=== PATIENT | male | born 1930 | race Caucasian/White ===

== ENCOUNTER 2019-02-16 15:38 | Inpatient (IN) | payer OTHER ==
[~2019-02-16] VITALS: Ht 175.3 cm; Wt 72.8 kg
[2019-02-16] MEDS ORDERED: MAGNESIUM HYDROXIDE 2,400 MG/30 ML ORAL.SUSP. PO PRN (17:00)
[2019-02-16] MEDS ORDERED: ACETAMINOPHEN 325 MG TABLET PO PRN (17:00)
[2019-02-16] MEDS ORDERED: MAG HYDROX/AL HYDROX/SIMETH 30 ML ORAL.SUSP PO PRN (17:00)
[2019-02-16] MEDS ORDERED: SENN1TAB15 PO (17:37)
[2019-02-16] MEDS ORDERED: TAMS0.4C97 PO (17:37)
[2019-02-16] MEDS ORDERED: CHOL500016 PO (17:37)
[2019-02-16] MEDS ORDERED: NAPR-695 PO (17:37)
[2019-02-16] MEDS ORDERED: NYST15OI TP (17:37)
[2019-02-16] MEDS ORDERED: CYAN10005 PO (17:37)
[2019-02-16] MEDS ORDERED: HYDR-2769 PO ×2 (17:37)
[2019-02-16] MEDS ORDERED: METH-37 PO (17:37)
[2019-02-16] MEDS ORDERED: FOLI1TAB16 PO (17:37)
[2019-02-16] MEDS ORDERED: ACET500T68 PO (17:37)
[2019-02-16] MEDS ORDERED: HYDROcodone/APAP 10/325 1 TAB TABLET PO PRN (17:45)
[2019-02-16] MEDS ORDERED: SENNOSIDES/DOCUSATE 8.6/50MG TABLET. PO PRN (17:45)
[2019-02-16] MEDS: NAPROXEN 375 MG TABLET PO SCH (20:32)
[2019-02-16] MEDS: METHOCARBAMOL 500 MG TABLET PO SCH (20:32)
[2019-02-16] MEDS: NYSTATIN 100,000 UNIT/GM TOPICAL OINTMENT 15GM TUBE. TP SCH (20:32)
[2019-02-16] MEDS: HYDROcodone/APAP 10/325 1 TAB TABLET PO PRN (21:27)
--- NOTE | 2019-02-16 23:07 | PDOC ---
Exam Note: Adam Note: Please also refer to the separate dictated note~for this date of service dictated separately. Discussed the patient with Nursing staff reviewed the chart.~Reviewed interim history and current functioning. Reviewed vital signs,~Labs/ Radiology~and current medications noted below. Continue current treatment with the changes noted in the dictated addendum note Assessment: Vital Signs: Vital Signs Date Time Temp Pulse Resp B/P (MAP) Pulse Ox O2 Delivery O2 Flow Rate FiO2 02/16/19 22:27 18 Room Air Current Medications: Meds: Current Medications Acetaminophen (Tylenol) 650 mg PRN Q6HRS PRN PO PAIN / TEMP; Start 02/16/19 at 17:00; Status Cancel Multi-Ingredient Ointment (Analgesic [place]) 1 iesha PRN QID PRN TP MUSCLE PAIN; Start 02/16/19 at 17:00 Al Hydroxide/Mg Hydroxide (Mylanta Plus Xs) 15 ml PRN AFTMEALHC PRN PO DYSPEPSIA; Start 02/16/19 at 17:00 Magnesium Hydroxide (Milk Of Magnesia) 2,400 mg PRN QHS PRN PO CONSTIPATION; Start 02/16/19 at 17:00 Cyanocobalamin (Vitamin B-12) 1,000 mcg DAILY PO ; Start 02/17/19 at 09:00 Acetaminophen/ Hydrocodone Bitart (Lortab 10/325) 1 tab PRN BID PRN PO PAIN L ast administered on 02/16/19at 21:27; Start 02/16/19 at 17:45 Acetaminophen/ Hydrocodone Bitart (Lortab 10/325) 1 tab DAILY PRN PO PAIN; Start 02/16/19 at 17:45; Status UNV Methocarbamol (Robaxin) 750 mg BID PO Last administered on 02/16/19at 20:32; Start 02/16/19 at 21:00 Nystatin (Mycostatin) 1 iesha TID TP Last administered on 02/16/19at 20:32; Start 02/16/19 at 21:00 Senna/Docusate Sodium (Senna Plus) 1 tab PRN BID PRN PO CONSTIPATION; Start 02/16/19 at 17:45 Tamsulosin HCl (Flomax) 0.4 mg DAILYWSUP PO ; Start 02/17/19 at 17:00 Acetaminophen (Tylenol) 500 mg PRN Q8HRS PRN PO PAIN / TEMP; Start 02/16/19 at 18:00 Vitamin D (Vitamin D3) 5,000 unit DAILY PO ; Start 02/17/19 at 09:00 Folic Acid (Folic Acid) 1 mg DAILY PO ; Start 02/17/19 at 09:00 Naproxen (Naprosyn) 375 mg BID PO Last administered on 02/16/19at 20:32; Start 02/16/19 at 21:00 Active Scripts Active Reported Flomax (Tamsulosin Hcl) 0.4 Mg Cap.er.24h 1 Cap PO DAILYWSUP Folic Acid 1 Mg Tablet 1 Tab PO DAILY Vitamin B-12 (Cyanocobalamin (Vitamin B-12)) 1,000 Mcg Tablet 1 Tab PO DAILY Senna-S Tablet (Sennosides/Docusate Sodium) 1 Each Tablet 1 Each PO BID PRN Acetaminophen 500 Mg Tablet 1 Tab PO PRN Q8HRS PRN Vitamin D3 (Cholecalciferol (Vitamin D3)) 5,000 Unit Tablet 1 Tab PO DAILY Nystatin 15 Gm Oint...g. 1 Iesha TP TID Naproxen 375 Mg Tablet 1 Tab PO BID Robaxin (Methocarbamol) 500 Mg Tablet 750 Mg PO BID Hydrocodone-Apap 10-325 (Hydrocodone Bit/Acetaminophen) 1 Each Tablet 1 Tab PO DAILY PRN Hydrocodone-Apap 10-325 (Hydrocodone Bit/Acetaminophen) 1 Each Tablet 1 Tab PO BID PRN I have reviewed the current psychotropics carefully including drug interactions. Risk benefit ratio favors no change other than as noted in my dictated progress note. 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
[2019-02-17 00:58] VITALS: BP 127/70
[2019-02-17 05:34] VITALS: BP 138/77
[2019-02-17 07:58] LABS: ALBUMIN 3.4 g/dL (3.4-5.0); ALBUMIN/GLOBULIN RATIO 1.3 (1.0-1.7); CALCIUM 8.8 mg/dL (8.5-10.1); CREATININE 0.8 mg/dL (0.7-1.3); GFR 91.4; MAGNESIUM 2.2 mg/dL (1.8-2.4); POTASSIUM 4.5 mmol/L (3.5-5.1); TOTAL BILIRUBIN 0.5 mg/dL (0.2-1.0); TOTAL PROTEIN 6.1 g/dL (6.4-8.2)
[2019-02-17] MEDS: METHOCARBAMOL 500 MG TABLET PO SCH ×2 (08:00→19:11)
[2019-02-17 08:01] LABS: BASO # 0.1 x10^3/uL (0.0-0.2); BASO % 5 % (0-3); EOS % 1 % (0-3); HEMATOCRIT 25.3 % (39.0-53.0); HEMOGLOBIN 8.9 g/dL (13.0-17.5); LYMPH # 0.9 x10^3/uL (1.0-4.8); LYMPH % 36 % (24-48); MEAN CORPUSCULAR HEMOGLOBIN 38 pg (25-35); MEAN CORPUSCULAR HGB CONC 35 g/dL (31-37); MEAN CORPUSCULAR VOLUME 110 fL (79-100); MONO # 0.2 x10^3/uL (0.0-1.1); MONO % 6 % (0-9); NEUT # 1.3 x10^3uL (1.8-7.7); NEUT % 53 % (31-73); PLATELET COUNT 99 x10^3/uL (140-400); RED BLOOD COUNT 2.31 x10^6/uL (4.30-5.70); RED CELL DISTRIBUTION WIDTH 14.5 % (11.5-14.5); WHITE BLOOD COUNT 2.5 x10^3/uL (4.0-11.0)
[2019-02-17] MEDS: NAPROXEN 375 MG TABLET PO SCH ×2 (08:01→19:11)
[2019-02-17] MEDS: CHOLECALCIFEROL (VITAMIN D3) 1,000 UNIT TABLET PO SCH (08:01)
[2019-02-17] MEDS: CYANOCOBALAMIN (VITAMIN B-12) 1,000 MCG TABLET. PO SCH (08:02)
[2019-02-17] MEDS: FOLIC ACID 1 MG TABLET PO SCH (08:04)
[2019-02-17] MEDS: NYSTATIN 100,000 UNIT/GM TOPICAL OINTMENT 15GM TUBE. TP SCH ×3 (08:04→19:11)
[2019-02-17 09:21] LABS: PLT ESTIMATE DECREASED (ADEQUATE)
[2019-02-17 09:22] LABS: POLYCHROMASIA PRESENT
--- NOTE | 2019-02-17 10:37 | EKG ---
[address] [address] Test Date: 2019-02-17 Test Time: 05:08:29 Pat Name: CARLOS MANUEL MEYERS Department: Room: [address] [place] [address] Gender: M Band Shover: : 1930 Requested By: YOLI ONOFRE Order Number: [id number] Reading MD: Aba Cano Measurements Intervals [place] Rate: 67 P: 52 [place]: 180 QRS: 7 QRSD: 80 T: 44 QT: 408 QTc: 434 Interpretive Statements SINUS RHYTHM ATRIAL PREMATURE COMPLEX(ES) Electronically Signed On 02-18-2019 10:08:42 CDT by Aba Cano
[2019-02-17] MEDS: HYDROcodone/APAP 10/325 1 TAB TABLET PO PRN (12:11)
[2019-02-17 13:03] LABS: THYROID STIM HORMONE (TSH) 6.096 uIU/mL (0.358-3.740)
--- NOTE | 2019-02-17 14:46 | RAD ---
EXAM: Head CT without contrast. HISTORY: Mental status change. TECHNIQUE: Computed tomographic images of the head were obtained without contrast. *One or more of the following individualized dose reduction techniques were utilized for this examination: 1. Automated exposure control. 2. Adjustment of the mA and/or kV according to patient size. 3. Use of iterative reconstruction technique. COMPARISON: None. FINDINGS: There is no acute or subacute extra-axial or intraparenchymal hemorrhage. There is no mass effect or midline shift. There is no hydrocephalus. There are areas of decreased attenuation within the cerebral white matter, nonspecific and likely related to chronic small vessel disease. There is cerebral volume loss. There is mild ethmoid sinus mucosal thickening. There is incidental left orbital band keratopathy. The mastoid air cells are clear. No calvarial lesion is seen. IMPRESSION: 1. No acute intracranial finding. Note is made that MRI is more sensitive for acute infarction. 2. Decreased attenuation within the cerebral white matter, likely due to chronic small vessel disease. 3. Age-appropriate cerebral volume loss. Electronically signed by: Sweetie Mayer MD (02/17/2019 2:43 PM) [place] [id number]
[2019-02-17 16:06] VITALS: BP 123/63
[2019-02-17] MEDS: TAMSULOSIN 0.4 MG CAP.ER.24H. PO SCH (17:08)
--- NOTE | 2019-02-17 19:15 | HP ---
ADMIT DATE: 02/16/2019 PSYCHIATRIC ADMISSION HISTORY/EVALUATION This late entry, date of service 02/16/2019 covers elements not covered in my initial note. I met with the patient evening of 02/16/2019. IDENTIFYING DATA: The patient is an 88-year-old male, referred to us from the [facility] where he was admitted from [facility] where he resides on his own. He had been increasingly confused, paranoid, aggressive towards his son, throwing things at the son, paranoid, depressed, having poor self-care, suicidal ideation, actively wanting to end his life. He was obsessive, ruminative, asking his son to take into the bank every other day. He failed outpatient psychiatric interventions, was medically stabilized at the [facility], then referred to us for inpatient psychiatric stabilization. CHIEF COMPLAINT: "Who told you, I was suicidal. Why are you asking me memory questions. I am nothing wrong with the memory. You can ask me questions, I do not have to answer." The patient is quite paranoid, suspicious, agitated as I met with him evening of 02/16/2019. He seated in his wheelchair, however, he is being admitted earlier in the day. HISTORY OF PRESENT ILLNESS: The patient has a history of dementia, Alzheimer's vascular type with delusions, behavioral disturbance. As noted above, he has been obsessive, anxious, psychotic, paranoid with sleep changes. No clear symptoms of bipolar disorder or homicidal ideation. No suicide attempt is noted. He is extremely guarded, discussing all of the above. PAST PSYCHIATRIC HISTORY: As above. MEDICAL HISTORY: Positive for BPH and history of CA prostate, history of B12 and folate deficiency and possible vitamin D deficiency. DRUG ALLERGIES: Negative. Takes medications whole. DIET: Regular. Accu-Cheks not applicable. Ambulates with walker, standby assist. CURRENT PSYCHOTROPICS: Lortab 10/325 b.i.d. p.r.n. daily for pain and he is on Flomax. FAMILY HISTORY: Noncontributory. SOCIAL HISTORY: No history of alcohol, drug abuse, physical, sexual or elder abuse. He is not known to be a perpetrator. REACTION TO HOSPITALIZATION: The patient reluctantly accepting of it. REVIEW OF SYSTEMS: Ambulation impaired, in wheelchair. No CV, , pulmonary, eye, ENT system symptoms on review. Reliability poor. MENTAL STATUS EXAMINATION: Oriented to himself. Insight, judgment, recent and remote memory, attention, concentration, fund of knowledge poor, consistent with his diagnosis mentioned in my initial note. SUBJECTIVE: I had been called on the patient a few days previously to admit him to our unit, but [facility] and then [facility] contacted us to transition him here. IMPRESSION: Major neurocognitive disorder, Alzheimer, vascular with delusion, depression, behavioral disturbance; anxiety disorder, unspecified; impulse control disorder, unspecified. Rest as above. PLAN: Admit to Geropsychiatry Unit at [facility]. I will see the patient daily individually from a psychiatric standpoint. Medical followup with Dr. Anderson. I will see the patient daily individually. We will have neuropsychological testing with Dr. Julien to assess his level of cognition and capacity to make decision, start him on Exelon patch 4.6 mg daily for 7 days, then 9.5 mg a day. Consider starting Zoloft 25 mg a day, increasing in 3 days to 50 mg a day. Start Risperdal liquid 0.25 mg p.o. at bedtime, mix in his food and fluids with the consent of his son. We will make further changes as clinically indicated. YOLI ONOFRE MD DR: NEO/janae JOB#: [id number] / [id number]
--- NOTE | 2019-02-17 22:37 | PDOC ---
Exam Note: Adam Note: Please also refer to the separate dictated note~for this date of service dictated separately.~Patient seen individually. Discussed the patient with Nursing staff reviewed the chart.~Reviewed interim history and current functioning. Reviewed vital signs,~Labs/ Radiology~and current medications noted below. Continue current treatment with the changes noted in the dictated addendum note Assessment: Vital Signs: Vital Signs Date Time Temp Pulse Resp B/P (MAP) Pulse Ox O2 Delivery O2 Flow Rate FiO2 02/17/19 16:06 98.3 61 16 123/63 (83) 96 02/17/19 00:58 Room Air I&O Intake and Output 02/17/19 07:00 Intake Total 480 ml Balance 480 ml Intake Oral 480 ml # Voids 1 Labs: Laboratory Tests Test 02/17/19 07:22 White Blood Count 2.5 x10^3/uL (4.0-11.0) L Red Blood Count 2.31 x10^6/uL (4.30-5.70) L Hemoglobin 8.9 g/dL (13.0-17.5) L Hematocrit 25.3 % (39.0-53.0) L Mean Corpuscular Volume 110 fL (79-100) H Mean Corpuscular Hemoglobin 38 pg (25-35) H Mean Corpuscular Hemoglobin Concent 35 g/dL (31-37) Red Cell Distribution Width 14.5 % (11.5-14.5) Platelet Count 99 x10^3/uL (140-400) L Neutrophils (%) (Auto) 53 % (31-73) Lymphocytes (%) (Auto) 36 % (24-48) Monocytes (%) (Auto) 6 % (0-9) Eosinophils (%) (Auto) 1 % (0-3) Basophils (%) (Auto) 5 % (0-3) H Neutrophils # (Auto) 1.3 x10^3uL (1.8-7.7) L Lymphocytes # (Auto) 0.9 x10^3/uL (1.0-4.8) L Monocytes # (Auto) 0.2 x10^3/uL (0.0-1.1) Eosinophils # (Auto) 0.0 x10^3/uL (0.0-0.7) Basophils # (Auto) 0.1 x10^3/uL (0.0-0.2) Platelet Estimate Decreased (ADEQUATE) Large Platelets Occ Polychromasia Present Macrocytosis Slight Sodium Level 139 mmol/L (136-145) Potassium Level 4.5 mmol/L (3.5-5.1) Chloride Level 102 mmol/L (98-107) Carbon Dioxide Level 30 mmol/L (21-32) Anion Gap 7 (6-14) Blood Urea Nitrogen 20 mg/dL (8-26) Creatinine 0.8 mg/dL (0.7-1.3) Estimated GFR (Cockcroft-Gault) 91.4 BUN/Creatinine Ratio 25 (6-20) H Glucose Level 91 mg/dL (70-99) Calcium Level 8.8 mg/dL (8.5-10.1) Magnesium Level 2.2 mg/dL (1.8-2.4) Iron Level 81 ug/dL (65-175) Total Iron Binding Capacity 204 ug/dL (250-450) L Iron Saturation 40 % (15-34) H Total Bilirubin 0.5 mg/dL (0.2-1.0) Aspartate Amino Transferase (AST) 10 U/L (15-37) L Alanine Aminotransferase (ALT) 14 U/L (16-63) L Alkaline Phosphatase 98 U/L (46-116) Total Protein 6.1 g/dL (6.4-8.2) L Albumin 3.4 g/dL (3.4-5.0) Albumin/Globulin Ratio 1.3 (1.0-1.7) Triglycerides Level 49 mg/dL (0-150) Cholesterol Level 124 mg/dL (0-200) LDL Cholesterol, Calculated 56 mg/dL (0-100) VLDL Cholesterol, Calculated 9 mg/dL (0-40) Non-HDL Cholesterol Calculated 65 mg/dL (0-129) HDL Cholesterol 59 mg/dL (40-60) Cholesterol/HDL Ratio 2.0 Thyroid Stimulating Hormone (TSH) 6.096 uIU/mL (0.358-3.740) Total Triiodothyronine (TT3) 90 ng/dL (71-180) Current Medications: Meds: Current Medications Acetaminophen (Tylenol) 650 mg PRN Q6HRS PRN PO PAIN / TEMP; Start 02/16/19 at 17:00; Status Cancel Multi-Ingredient Ointment (Analgesic [place]) 1 iesha PRN QID PRN TP MUSCLE PAIN; Start 02/16/19 at 17:00 Al Hydroxide/Mg Hydroxide (Mylanta Plus Xs) 15 ml PRN AFTMEALHC PRN PO DYSPEPSIA; Start 02/16/19 at 17:00 Magnesium Hydroxide (Milk Of Magnesia) 2,400 mg PRN QHS PRN PO CONSTIPATION; Start 02/16/19 at 17:00 Cyanocobalamin (Vitamin B-12) 1,000 mcg DAILY PO Last administered on 02/17/19at 08:02; Start 02/17/19 at 09:00 Acetaminophen/ Hydrocodone Bitart (Lortab 10/325) 1 tab PRN BID PRN PO PAIN Last administered on 02/17/19at 12:11; Start 02/16/19 at 17:45 Acetaminophen/ Hydrocodone Bitart (Lortab 10/325) 1 tab DAILY PRN PO PAIN; Start 02/16/19 at 17:45; Status UNV Methocarbamol (Robaxin) 750 mg BID PO Last administered on 02/17/19at 19:11; Start 02/16/19 at 21:00 Nystatin (Mycostatin) 1 iesha TID TP Last administered on 02/17/19at 19:11; Start 02/16/19 at 21:00 Senna/Docusate Sodium (Senna Plus) 1 tab PRN BID PRN PO CONSTIPATION; Start 02/16/19 at 17:45 Tamsulosin HCl (Flomax) 0.4 mg DAILYWSUP PO Last administered on 02/17/19at 17:08; Start 02/17/19 at 17:00 Acetaminophen (Tylenol) 500 mg PRN Q8HRS PRN PO PAIN / TEMP; Start 02/16/19 at 18:00 Vitamin D (Vitamin D3) 5,000 unit DAILY PO Last administered on 02/17/19 08:01; Start 02/17/19 at 09:00 Folic Acid (Folic Acid) 1 mg DAILY PO Last administered on 02/17/19at 08:04; Start 02/17/19 at 09:00 Naproxen (Naprosyn) 375 mg BID PO Last administered on 02/17/19at 19:11; Start 02/16/19 at 21:00 Risperidone (RisperDAL) 0.25 mg DAILY SL ; Start 02/18/19 at 09:00 Sertraline HCl (Zoloft) 25 mg DAILY PO ; Start 02/18/19 at 09:00; Stop 02/20/19 at 09:01 Sertraline HCl (Zoloft) 50 mg DAILY PO ; Start 02/21/19 at 09:00 Rivastigmine (Exelon) 1 patch DAILY TD ; Start 02/18/19 at 09:00; Stop 02/24/19 at 09:01 Rivastigmine (Exelon) 1 patch DAILY TD ; Start 02/25/19 at 09:00 Active Scripts Active Reported Flomax (Tamsulosin Hcl) 0.4 Mg Cap.er.24h 1 Cap PO DAILYWSUP Folic Acid 1 Mg Tablet 1 Tab PO DAILY Vitamin B-12 (Cyanocobalamin (Vitamin B-12)) 1,000 Mcg Tablet 1 Tab PO DAILY Senna-S Tablet (Sennosides/Docusate Sodium) 1 Each Tablet 1 Each PO BID PRN Acetaminophen 500 Mg Tablet 1 Tab PO PRN Q8HRS PRN Vitamin D3 (Cholecalciferol (Vitamin D3)) 5,000 Unit Tablet 1 Tab PO DAILY Nystatin 15 Gm Oint...g. 1 Iesha TP TID Naproxen 375 Mg Tablet 1 Tab PO BID Robaxin (Methocarbamol) 500 Mg Tablet 750 Mg PO BID Hydrocodone-Apap 10-325 (Hydrocodone Bit/Acetaminophen) 1 Each Tablet 1 Tab PO DAILY PRN Hydrocodone-Apap 10-325 (Hydrocodone Bit/Acetaminophen) 1 Each Tablet 1 Tab PO BID PRN I have reviewed the current psychotropics carefully including drug interactions. Risk benefit ratio favors no change other than as noted in my dictated progress note. 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
[2019-02-17 23:10] LABS: HEMOGLOBIN A1C 5.4 % (4.8-5.6)
[2019-02-18] MEDS: HYDROcodone/APAP 10/325 1 TAB TABLET PO PRN ×2 (01:09→07:25)
--- NOTE | 2019-02-18 01:19 | CONS ---
DATE OF CONSULTATION: 02/17/2019 REASON FOR CONSULTATION: Medical management. HISTORY OF PRESENT ILLNESS: The patient is an 88-year-old male patient, who was apparently evaluated at [facility] and was [facility] on account of being aggressive towards his son, throwing things at him, paranoid, depressed, poor self-care, has suicidal ideation, making son take him to the bank every other day on a background of dementia, Alzheimer's disease with delusions, impulse control disorder and major depressive disorder. 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 PAST SURGICAL HISTORY: Unremarkable. FAMILY HISTORY: Noncontributory. SOCIAL HISTORY: He lives with his son. He apparently does not smoke, drink alcohol or use any recreational drugs. He is able to ambulate with a walker. He has also wheelchair. ALLERGIES: He has no known drug allergies. MEDICATIONS: He is currently on following medications: He is on Flomax 0.4 mg daily, methocarbamol 750 mg twice a day, naproxen 375 mg twice a day, hydrocodone/APAP 10/325 one tablet twice a day. He is also on hydrocodone/APAP 10/325 one tablet daily. He is on Tylenol 500 mg every 8 hours, Senna-S 1 tablet twice a day, Nystatin ointment apply topically 3 times a day, cyanocobalamin 1000 mcg or vitamin B12 daily, folic acid 1 mg once a day, cholecalciferol for vitamin D3 5000 international units once a day. PHYSICAL EXAMINATION: GENERAL: On examining him, the patient looked pale, but no jaundice, cyanosis, or thyromegaly. No jugular venous distension. No lower limb edema. VITAL SIGNS: His heart rate was 61, blood pressure was 123/63, temperature was 98.3, respiratory rate was 16 and oxygen saturation was 96%. HEAD, EYES, EARS, NOSE AND THROAT: Showed normocephalic, atraumatic. NECK: Supple. HEART: Showed normal first and second heart sounds. No gallop, rub or murmur. CHEST: Clear to auscultation. No crepitation or rhonchi. ABDOMEN: Slightly distended, soft, nontender. NEUROLOGIC: He is awake, alert, responding appropriately. All his cranial nerves are intact. EXTREMITIES: He moves extremities without difficulty. Apparently, he is wheelchair bound, but able to ambulate with a walker. LABORATORY DATA: His lab work showed serum sodium 139, potassium 4.5, chloride 102, bicarbonate 30, anion gap of 7, BUN 20, creatinine 0.8. Estimated GFR was 91 mL per minute. His glucose was 91, calcium was 8.8, magnesium 2.2. His serum iron 31, TIBC was 104, iron saturation was 40. His total bilirubin, AST, ALT, alkaline phosphatase were normal. Total protein was 6.1, albumin was 3.4. Serum triglyceride was 49. Total cholesterol 124, LDL was 56, VLDL was 9, HDL cholesterol was 59 and the ratio was 2. TSH was slightly high at 6.096, however, total T4 was normal at 7.1. His white cell count was 2500, hemoglobin 8.9, hematocrit 25, MCV 110 and platelet count of 99,000 with a manual differential showed 53% polymorphs, 36% lymphocytes and 6% monocytes. There is macrocytosis and polychromasia together with large platelets. IMPRESSION AND PLAN: In summary, this is an 88-year-old male patient who was admitted on account of being aggressive towards his son, throwing things at him, paranoid, depressed, poor self-care, has suicidal ideation, making son take him to the bank every other day, all this in a background of dementia of Alzheimer's type. Medically, he is known to have benign prostatic hypertrophy. 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 My plan is to check his serum vitamin B12, and if it is low, we will discontinue the oral vitamin B12 and start the intramuscular injection. Thank you, Dr. Khan for allowing me to participate in the care of this patient. LUCRETIA ALDRIDGE MD DR: GERALDINE/janae JOB#: [id number] / [id number]
--- NOTE | 2019-02-18 01:49 | PN ---
DATE: 02/17/2019 SUBJECTIVE: The patient was seen on rounds evening of 02/17/2019. Discussed with nursing staff, reviewed the chart and the patient was staffed at a treatment team meeting with the entire team in the morning. I reviewed the patient's history at length including his paranoia, memory deficits, agitation, depressive, obsessive and symptoms of anxiety. Reviewed history at length. He slept 4 hours previous night. REVIEW OF SYSTEMS: Ambulation impaired, in wheelchair. No CV, , pulmonary, eye system symptoms on review. MENTAL STATUS EXAM: Oriented to himself. Insight, judgment, recent and remote memory, attention, concentration, fund of knowledge poor, consistent with his diagnosis. IMPRESSION: Major neurocognitive disorder, Alzheimer, vascular with delusion, depression, behavioral disturbance; anxiety disorder, unspecified; impulse control disorder, unspecified. Rest unchanged. PLAN: Continue current psychotropic. Start Exelon patch 4.6 mg a day, increasing gradually to 9.5 mg, Zoloft 25 mg a day increasing gradually to 50 mg a day, Risperdal liquid 0.25 mg p.o. at bedtime. Make further changes as clinically indicated. MAN Vikram ONOFRE MD DR: NEO/janae JOB#: [id number] / [id number]
[2019-02-18 05:28] VITALS: BP 106/51
[2019-02-18] MEDS: NYSTATIN 100,000 UNIT/GM TOPICAL OINTMENT 15GM TUBE. TP SCH ×3 (07:38→19:16)
[2019-02-18] MEDS: CHOLECALCIFEROL (VITAMIN D3) 1,000 UNIT TABLET PO SCH (07:39)
[2019-02-18] MEDS: METHOCARBAMOL 500 MG TABLET PO SCH ×2 (07:39→19:14)
[2019-02-18] MEDS: FOLIC ACID 1 MG TABLET PO SCH (07:40)
[2019-02-18] MEDS: CYANOCOBALAMIN (VITAMIN B-12) 1,000 MCG TABLET. PO SCH (07:40)
[2019-02-18] MEDS: NAPROXEN 375 MG TABLET PO SCH ×2 (07:41→19:14)
[2019-02-18] MEDS: risperiDONE ORAL 1 MG/ML 30ml BOTTLE. SL SCH (10:06)
[2019-02-18] MEDS: SERTRALINE 25 MG TABLET. PO SCH (10:06)
[2019-02-18] MEDS: RIVASTIGMINE 4.6MG PATCH. TD SCH (10:06)
[2019-02-18 15:37] VITALS: BP 110/60
[2019-02-18] MEDS: TAMSULOSIN 0.4 MG CAP.ER.24H. PO SCH (16:18)
--- NOTE | 2019-02-18 22:47 | PDOC ---
Exam Note: Adam Note: Please also refer to the separate dictated note~for this date of service dictated separately.~Patient seen individually. Discussed the patient with Nursing staff reviewed the chart.~Reviewed interim history and current functioning. Reviewed vital signs,~Labs/ Radiology~and current medications noted below. Continue current treatment with the changes noted in the dictated addendum note Assessment: Vital Signs: Vital Signs Date Time Temp Pulse Resp B/P (MAP) Pulse Ox O2 Delivery O2 Flow Rate FiO2 02/18/19 15:37 97.6 84 20 110/60 (77) 96 Room Air I&O Intake and Output 02/18/19 07:00 Intake Total 1320 ml Balance 1320 ml Intake Oral 1320 ml Labs: Laboratory Tests Test 02/18/19 06:17 Vitamin B12 Level 1988 pg/mL (247-911) H Current Medications: Meds: Current Medications Acetaminophen (Tylenol) 650 mg PRN Q6HRS PRN PO PAIN / TEMP; Start 02/16/19 at 17:00; Status Cancel Multi-Ingredient Ointment (Analgesic [place]) 1 iesha PRN QID PRN TP MUSCLE PAIN; Start 02/16/19 at 17:00 Al Hydroxide/Mg Hydroxide (Mylanta Plus Xs) 15 ml PRN AFTMEALHC PRN PO DYSPEPSIA; Start 02/16/19 at 17:00 Magnesium Hydroxide (Milk Of Magnesia) 2,400 mg PRN QHS PRN PO CONSTIPATION; Start 02/16/19 at 17:00 Cyanocobalamin (Vitamin B-12) 1,000 mcg DAILY PO Last administered on 02/18/19at 07:40; Start 02/17/19 at 09:00 Acetaminophen/ Hydrocodone Bitart (Lortab 10/325) 1 tab PRN BID PRN PO PAIN Last administered on 02/18/19at 07:25; Start 02/16/19 at 17:45 Acetaminophen/ Hydrocodone Bitart (Lortab 10/325) 1 tab DAILY PRN PO PAIN; Start 02/16/19 at 17:45; Status UNV Methocarbamol (Robaxin) 750 mg BID PO Last administered on 02/18/19at 19:14; Start 02/16/19 at 21:00 Nystatin (Mycostatin) 1 iesha TID TP Last administered on 02/18/19at 19:16; Start 02/16/19 at 21:00 Senna/Docusate Sodium (Senna Plus) 1 tab PRN BID PRN PO CONSTIPATION; Start 02/16/19 at 17:45 Tamsulosin HCl (Flomax) 0.4 mg DAILYWSUP PO Last administered on 02/18/19at 16:18; Start 02/17/19 at 17:00 Acetaminophen (Tylenol) 500 mg PRN Q8HRS PRN PO PAIN / TEMP; Start 02/16/19 at 18:00 Vitamin D (Vitamin D3) 5,000 unit DAILY PO Last administered on 02/18/19at 07:39; Start 02/17/19 at 09:00 Folic Acid (Folic Acid) 1 mg DAILY PO Last administered on 02/18/19at 07:40; Start 02/17/19 at 09:00 Naproxen (Naprosyn) 375 mg BID PO Last administered on 02/18/19at 19:14; Start 02/16/19 at 21:00 Risperidone (RisperDAL) 0.25 mg DAILY SL Last administered on 02/18/19at 10:06; Start 02/18/19 at 09:00 Sertraline HCl (Zoloft) 25 mg DAILY PO Last administered on 02/18/19at 10:06; Start 02/18/19 at 09:00; Stop 02/20/19 at 09:01 Sertraline HCl (Zoloft) 50 mg DAILY PO ; Start 02/21/19 at 09:00 Rivastigmine (Exelon) 1 patch DAILY TD Last administered on 02/18/19at 10:06; Start 02/18/19 at 09:00; Stop 02/24/19 at 09:01 Rivastigmine (Exelon) 1 patch DAILY TD ; Start 02/25/19 at 09:00 Active Scripts Active Reported Flomax (Tamsulosin Hcl) 0.4 Mg Cap.er.24h 1 Cap PO DAILYWSUP Folic Acid 1 Mg Tablet 1 Tab PO DAILY Vitamin B-12 (Cyanocobalamin (Vitamin B-12)) 1,000 Mcg Tablet 1 Tab PO DAILY Senna-S Tablet (Sennosides/Docusate Sodium) 1 Each Tablet 1 Each PO BID PRN Acetaminophen 500 Mg Tablet 1 Tab PO PRN Q8HRS PRN Vitamin D3 (Cholecalciferol (Vitamin D3)) 5,000 Unit Tablet 1 Tab PO DAILY Nystatin 15 Gm Oint...g. 1 Iseha TP TID Naproxen 375 Mg Tablet 1 Tab PO BID Robaxin (Methocarbamol) 500 Mg Tablet 750 Mg PO BID Hydrocodone-Apap 10-325 (Hydrocodone Bit/Acetaminophen) 1 Each Tablet 1 Tab PO DAILY PRN Hydrocodone-Apap 10-325 (Hydrocodone Bit/Acetaminophen) 1 Each Tablet 1 Tab PO BID PRN I have reviewed the current psychotropics carefully including drug interactions. Risk benefit ratio favors no change other than as noted in my dictated progress note. 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
[2019-02-19 06:19] VITALS: BP 139/79
[2019-02-19] MEDS: NAPROXEN 375 MG TABLET PO SCH ×2 (08:58→20:48)
[2019-02-19] MEDS: FOLIC ACID 1 MG TABLET PO SCH (08:58)
[2019-02-19] MEDS: METHOCARBAMOL 500 MG TABLET PO SCH ×2 (09:03→20:36)
[2019-02-19] MEDS: CYANOCOBALAMIN (VITAMIN B-12) 1,000 MCG TABLET. PO SCH (09:05)
[2019-02-19] MEDS: risperiDONE ORAL 1 MG/ML 30ml BOTTLE. SL SCH (09:06)
[2019-02-19] MEDS: CHOLECALCIFEROL (VITAMIN D3) 1,000 UNIT TABLET PO SCH (09:06)
[2019-02-19] MEDS: SERTRALINE 25 MG TABLET. PO SCH (09:06)
[2019-02-19] MEDS: RIVASTIGMINE 4.6MG PATCH. TD SCH (09:07)
[2019-02-19] MEDS: NYSTATIN 100,000 UNIT/GM TOPICAL OINTMENT 15GM TUBE. TP SCH ×3 (09:07→20:48)
[2019-02-19 16:12] VITALS: BP 122/71
[2019-02-19] MEDS: TAMSULOSIN 0.4 MG CAP.ER.24H. PO SCH (17:07)
--- NOTE | 2019-02-19 23:13 | PDOC ---
Exam Note: Adam Note: Please also refer to the separate dictated note~for this date of service dictated separately.~Patient seen individually. Discussed the patient with Nursing staff reviewed the chart.~Reviewed interim history and current functioning. Reviewed vital signs,~Labs/ Radiology~and current medications noted below. Continue current treatment with the changes noted in the dictated addendum note Assessment: Vital Signs: Vital Signs Date Time Temp Pulse Resp B/P (MAP) Pulse Ox O2 Delivery O2 Flow Rate FiO2 02/19/19 16:12 97.9 80 18 122/71 (88) 97 02/19/19 06:19 Room Air I&O Intake and Output 02/19/19 06:59 Intake Total 965 ml Balance 965 ml Intake Oral 965 ml Current Medications: Meds: Current Medications Acetaminophen (Tylenol) 650 mg PRN Q6HRS PRN PO PAIN / TEMP; Start 02/16/19 at 1 7:00; Status Cancel Multi-Ingredient Ointment (Analgesic [place]) 1 iesha PRN QID PRN TP MUSCLE PAIN; Start 02/16/19 at 17:00 Al Hydroxide/Mg Hydroxide (Mylanta Plus Xs) 15 ml PRN AFTMEALHC PRN PO DYSPEPSIA; Start 02/16/19 at 17:00 Magnesium Hydroxide (Milk Of Magnesia) 2,400 mg PRN QHS PRN PO CONSTIPATION; Start 02/16/19 at 17:00 Cyanocobalamin (Vitamin B-12) 1,000 mcg DAILY PO Last administered on 02/19/19at 09:05; Start 02/17/19 at 09:00; Stop 02/19/19 at 18:50; Status DC Acetaminophen/ Hydrocodone Bitart (Lortab 10/325) 1 tab PRN BID PRN PO PAIN Last administered on 02/18/19at 07:25; Start 02/16/19 at 17:45 Acetaminophen/ Hydrocodone Bitart (Lortab 10/325) 1 tab DAILY PRN PO PAIN; Start 02/16/19 at 17:45; Status UNV Methocarbamol (Robaxin) 750 mg BID PO Last administered on 02/19/19at 20:36; Start 02/16/19 at 21:00 Nystatin (Mycostatin) 1 iesha TID TP Last administered on 02/19/19at 20:48; Start 02/16/19 at 21:00 Senna/Docusate Sodium (Senna Plus) 1 tab PRN BID PRN PO CONSTIPATION; Start 02/16/19 at 17:45 Tamsulosin HCl (Flomax) 0.4 mg DAILYWSUP PO Last administered on 02/19/19at 17:07; Start 02/17/19 at 17:00 Acetaminophen (Tylenol) 500 mg PRN Q8HRS PRN PO PAIN / TEMP; Start 02/16/19 at 18:00 Vitamin D (Vitamin D3) 5,000 unit DAILY PO Last administered on 02/19/19at 09:06; Start 02/17/19 at 09:00 Folic Acid (Folic Acid) 1 mg DAILY PO Last administered on 02/19/19 08:58; Start 02/17/19 at 09:00 Naproxen (Naprosyn) 375 mg BID PO Last administered on 02/19/19at 20:48; Start 02/16/19 at 21:00 Risperidone (RisperDAL) 0.25 mg DAILY SL Last administered on 02/19/19at 09:06; Start 02/18/19 at 09:00; Stop 02/19/19 at 21:45; Status DC Sertraline HCl (Zoloft) 25 mg DAILY PO Last administered on 02/19/19at 09:06; Start 02/18/19 at 09:00; Stop 02/20/19 at 09:01 Sertraline HCl (Zoloft) 50 mg DAILY PO ; Start 02/21/19 at 09:00 Rivastigmine (Exelon) 1 patch DAILY TD Last administered on 02/19/19at 09:07; Start 02/18/19 at 09:00; Stop 02/24/19 at 09:01 Rivastigmine (Exelon) 1 patch DAILY TD ; Start 02/25/19 at 09:00 Risperidone (RisperDAL) 0.5 mg DAILY SL ; Start 02/20/19 at 09:00 Active Scripts Active Reported Flomax (Tamsulosin Hcl) 0.4 Mg Cap.er.24h 1 Cap PO DAILYWSUP Folic Acid 1 Mg Tablet 1 Tab PO DAILY Vitamin B-12 (Cyanocobalamin (Vitamin B-12)) 1,000 Mcg Tablet 1 Tab PO DAILY Senna-S Tablet (Sennosides/Docusate Sodium) 1 Each Tablet 1 Each PO BID PRN Acetaminophen 500 Mg Tablet 1 Tab PO PRN Q8HRS PRN Vitamin D3 (Cholecalciferol (Vitamin D3)) 5,000 Unit Tablet 1 Tab PO DAILY Nystatin 15 Gm Oint...g. 1 Iesha TP TID Naproxen 375 Mg Tablet 1 Tab PO BID Robaxin (Methocarbamol) 500 Mg Tablet 750 Mg PO BID Hydrocodone-Apap 10-325 (Hydrocodone Bit/Acetaminophen) 1 Each Tablet 1 Tab PO DAILY PRN Hydrocodone-Apap 10-325 (Hydrocodone Bit/Acetaminophen) 1 Each Tablet 1 Tab PO BID PRN I have reviewed the current psychotropics carefully including drug interactions. Risk benefit ratio favors no change other than as noted in my dictated progress note. 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
[2019-02-20 06:04] VITALS: BP 105/59
[2019-02-20] MEDS: FOLIC ACID 1 MG TABLET PO SCH (08:11)
[2019-02-20] MEDS: SERTRALINE 25 MG TABLET. PO SCH (08:11)
[2019-02-20] MEDS: NAPROXEN 375 MG TABLET PO SCH ×2 (08:13→21:15)
[2019-02-20] MEDS: risperiDONE ORAL 1 MG/ML 30ml BOTTLE. SL SCH (08:15)
[2019-02-20] MEDS: METHOCARBAMOL 500 MG TABLET PO SCH ×2 (08:15→21:13)
[2019-02-20] MEDS: CHOLECALCIFEROL (VITAMIN D3) 1,000 UNIT TABLET PO SCH (08:15)
[2019-02-20] MEDS: RIVASTIGMINE 4.6MG PATCH. TD SCH (08:16)
[2019-02-20] MEDS: NYSTATIN 100,000 UNIT/GM TOPICAL OINTMENT 15GM TUBE. TP SCH ×3 (08:17→21:16)
[2019-02-20 15:45] VITALS: BP 153/64
[2019-02-20] MEDS: TAMSULOSIN 0.4 MG CAP.ER.24H. PO SCH (17:33)
--- NOTE | 2019-02-20 22:40 | PDOC ---
Exam Note: Adam Note: Please also refer to the separate dictated note~for this date of service dictated separately.~Patient seen individually. Discussed the patient with Nursing staff reviewed the chart.~Reviewed interim history and current functioning. Reviewed vital signs,~Labs/ Radiology~and current medications noted below. Continue current treatment with the changes noted in the dictated addendum note Assessment: Vital Signs: Vital Signs Date Time Temp Pulse Resp B/P (MAP) Pulse Ox O2 Delivery O2 Flow Rate FiO2 02/20/19 15:45 97.4 88 18 153/64 (93) 98 Room Air I&O Intake and Output 02/20/19 07:00 Intake Total 1085 ml Output Total 600 ml Balance 485 ml Intake Oral 1085 ml Output Urine Total 600 ml Current Medications: Meds: Current Medications Acetaminophen (Tylenol) 650 mg PRN Q6HRS PRN PO PAIN / TEMP; Start 02/16/19 at 17:00; Status Cancel Multi-Ingredient Ointment (Analgesic [place]) 1 iesha PRN QID PRN TP MUSCLE PAIN; Start 02/16/19 at 17:00 Al Hydroxide/Mg Hydroxide (Mylanta Plus Xs) 15 ml PRN AFTMEALHC PRN PO DYSPEPSIA; Start 02/16/19 at 17:00 Magnesium Hydroxide (Milk Of Magnesia) 2,400 mg PRN QHS PRN PO CONSTIPATION; Start 02/16/19 at 17:00 Cyanocobalamin (Vitamin B-12) 1,000 mcg DAILY PO Last administered on 02/19/19at 09:05; Start 02/17/19 at 09:00; Stop 02/19/19 at 18:50; Status DC Acetaminophen/ Hydrocodone Bitart (Lortab 10/325) 1 tab PRN BID PRN PO PAIN Last administered on 02/18/19at 07:25; Start 02/16/19 at 17:45 Acetaminophen/ Hydrocodone Bitart (Lortab 10/325) 1 tab DAILY PRN PO PAIN; Start 02/16/19 at 17:45; Status UNV Methocarbamol (Robaxin) 750 mg BID PO Last administered on 02/20/19at 21:13; Start 02/16/19 at 21:00 Nystatin (Mycostatin) 1 iesha TID TP Last administered on 02/20/19at 21:16; Start 02/16/19 at 21:00 Senna/Docusate Sodium (Senna Plus) 1 tab PRN BID PRN PO CONSTIPATION; Start 02/16/19 at 17:45 Tamsulosin HCl (Flomax) 0.4 mg DAILYWSUP PO Last administered on 02/20/19at 17:33; Start 02/17/19 at 17:00 Acetaminophen (Tylenol) 500 mg PRN Q8HRS PRN PO PAIN / TEMP; Start 02/16/19 at 18:00 Vitamin D (Vitamin D3) 5,000 unit DAILY PO Last administered on 02/20/19 08:15; Start 02/17/19 at 09:00 Folic Acid (Folic Acid) 1 mg DAILY PO Last administered on 02/20/19 08:11; Start 02/17/19 at 09:00 Naproxen (Naprosyn) 375 mg BID PO Last administered on 02/20/19 21:15; Start 02/16/19 at 21:00 Risperidone (RisperDAL) 0.25 mg DAILY SL Last administered on 02/19/19at 09:06; Start 02/18/19 at 09:00; Stop 02/19/19 at 21:45; Status DC Sertraline HCl (Zoloft) 25 mg DAILY PO Last administered on 02/20/19 08:11; Start 02/18/19 at 09:00; Stop 02/20/19 at 09:01; Status DC Sertraline HCl (Zoloft) 50 mg DAILY PO ; Start 02/21/19 at 09:00 Rivastigmine (Exelon) 1 patch DAILY TD Last administered on 02/20/19 08:16; Start 02/18/19 at 09:00; Stop 02/24/19 at 09:01 Rivastigmine (Exelon) 1 patch DAILY TD ; Start 02/25/19 at 09:00 Risperidone (RisperDAL) 0.5 mg DAILY SL Last administered on 02/20/19 08:15; Start 02/20/19 at 09:00 Active Scripts Active Reported Flomax (Tamsulosin Hcl) 0.4 Mg Cap.er.24h 1 Cap PO DAILYWSUP Folic Acid 1 Mg Tablet 1 Tab PO DAILY Vitamin B-12 (Cyanocobalamin (Vitamin B-12)) 1,000 Mcg Tablet 1 Tab PO DAILY Senna-S Tablet (Sennosides/Docusate Sodium) 1 Each Tablet 1 Each PO BID PRN Acetaminophen 500 Mg Tablet 1 Tab PO PRN Q8HRS PRN Vitamin D3 (Cholecalciferol (Vitamin D3)) 5,000 Unit Tablet 1 Tab PO DAILY Nystatin 15 Gm Oint...g. 1 Iesah TP TID Naproxen 375 Mg Tablet 1 Tab PO BID Robaxin (Methocarbamol) 500 Mg Tablet 750 Mg PO BID Hydrocodone-Apap 10-325 (Hydrocodone Bit/Acetaminophen) 1 Each Tablet 1 Tab PO DAILY PRN Hydrocodone-Apap 10-325 (Hydrocodone Bit/Acetaminophen) 1 Each Tablet 1 Tab PO BID PRN I have reviewed the current psychotropics carefully including drug interactions. Risk benefit ratio favors no change other than as noted in my dictated progress note. Diagnosis: Problems: (1) Anxiety disorder (2) Dementia in Alzheimer's disease with delusions (3) Dementia in Alzheimer's disease with depression (4) Dementia, vascular, with delusions (5) Dementia, vascular, with depression (6) Impulse control disorder (7) Psychosis, atypical (8) Major depressive disorder, recurrent episode YOLI ONOFRE MD February 20, 2019 22:40
[2019-02-21 05:58] VITALS: BP 131/68
[2019-02-21] MEDS: METHOCARBAMOL 500 MG TABLET PO SCH ×2 (08:22→19:43)
[2019-02-21] MEDS: FOLIC ACID 1 MG TABLET PO SCH (08:22)
[2019-02-21] MEDS: NAPROXEN 375 MG TABLET PO SCH ×2 (08:22→19:43)
[2019-02-21] MEDS: CHOLECALCIFEROL (VITAMIN D3) 1,000 UNIT TABLET PO SCH (08:23)
[2019-02-21] MEDS: SERTRALINE 50 MG TABLET. PO SCH (08:24)
[2019-02-21] MEDS: risperiDONE ORAL 1 MG/ML 30ml BOTTLE. SL SCH (08:24)
[2019-02-21] MEDS: NYSTATIN 100,000 UNIT/GM TOPICAL OINTMENT 15GM TUBE. TP SCH ×4 (08:26→21:07)
[2019-02-21] MEDS: RIVASTIGMINE 4.6MG PATCH. TD SCH (08:26)
[2019-02-21 15:19] VITALS: BP 128/74
[2019-02-21] MEDS: TAMSULOSIN 0.4 MG CAP.ER.24H. PO SCH (17:14)
--- NOTE | 2019-02-21 19:28 | PN ---
DATE: 02/18/2019 PSYCHIATRIC PROGRESS NOTE The patient was seen on rounds on the evening of 02/18/2019. Discussed with nursing staff, reviewed the chart. The patient slept 8 hours previous night, remains obsessive, anxious, paranoid, refused physical therapy. REVIEW OF SYSTEMS: Ambulation impaired with walker. No CV, , pulmonary, eye, ENT system symptoms on review. MENTAL STATUS EXAM: Oriented to himself and situation. Speech has some latency, coherent. Abstraction fair, computation impaired, language function intact. Mood and affect still remained depressed, paranoid. LABORATORY DATA: Reviewed. IMPRESSION: Major neurocognitive disorder, Alzheimer, vascular with delusion, depression, major depressive disorder with psychotic features. Rest unchanged. PLAN: Continue to gradually increase the Exelon patch along with the Zoloft. Maintain Risperdal 0.25 mg at bedtime, may need to increase this as well in due course. YOLI ONOFRE MD DR: NEO/jaane JOB#: [id number] / [id number]
--- NOTE | 2019-02-21 20:22 | PN ---
DATE: 02/19/2019 PSYCHIATRIC PROGRESS NOTE This late entry 02/19/2019 covers elements not covered in my initial note. SUBJECTIVE: I met with the patient in the evening of 02/19/2019. The patient has been pleasant, less paranoid, doing better during the day, still late evening, he gets more paranoid. REVIEW OF SYSTEMS: Ambulation impaired with walker. No CV, , pulmonary, eye, ENT system symptoms on review. Reliability poor. MENTAL STATUS EXAM: Oriented to himself. Insight, judgment, recent and remote memory, attention, concentration, fund of knowledge poor, consistent with his diagnosis mentioned in my initial note. PLAN: No change from initial note, but we will increase the Risperdal to 0.5 mg at bedtime. Rest unchanged. MAN Vikram ONOFRE MD DR: NEO/janae JOB#: [id number] / [id number]
--- NOTE | 2019-02-21 20:24 | PN ---
DATE: 02/20/2019 PSYCHIATRIC PROGRESS NOTE This late entry 02/20/2019 covers elements not covered in my initial note. SUBJECTIVE: I met with the patient evening of 02/20/2019. The patient slept 6-3/4 hours previous night. I met with him in his room, he was lying in bed. He has been irritable, angry with his son for bringing him here, little and limited insight into the reason prompting admission. He is compliant with his medication with encouragement. REVIEW OF SYSTEMS: Ambulation impaired with walker. No CV, , pulmonary, eye, ENT system symptoms on review. MENTAL STATUS EXAM: Oriented to himself and situation. Speech has some latency, coherent. Abstraction fair, computation impaired, language function intact, attention span short. Mood and affect somewhat withdrawn. LABORATORY DATA: Reviewed. IMPRESSION: Unchanged from initial note. PLAN: No change from initial note. Risperdal was increased. We will see how he does with this for now. YOLI ONOFRE MD DR: NEO/janae JOB#: [id number] / [id number]
--- NOTE | 2019-02-21 21:47 | PDOC ---
Exam Note: Adam Note: Please also refer to the separate dictated note~for this date of service dictated separately.~Patient seen individually. Discussed the patient with Nursing staff reviewed the chart.~Reviewed interim history and current functioning. Reviewed vital signs,~Labs/ Radiology~and current medications noted below. Continue current treatment with the changes noted in the dictated addendum note Assessment: Vital Signs: Vital Signs Date Time Temp Pulse Resp B/P (MAP) Pulse Ox O2 Delivery O2 Flow Rate FiO2 02/21/19 15:19 98.1 80 16 128/74 (92) 96 02/20/19 15:45 Room Air I&O Intake and Output 02/21/19 06:59 Intake Total 840 ml Balance 840 ml Intake Oral 840 ml Current Medications: Meds: Current Medications Acetaminophen (Tylenol) 650 mg PRN Q6HRS PRN PO PAIN / TEMP; Start 02/16/19 at 1 7:00; Status Cancel Multi-Ingredient Ointment (Analgesic [place]) 1 iesha PRN QID PRN TP MUSCLE PAIN; Start 02/16/19 at 17:00 Al Hydroxide/Mg Hydroxide (Mylanta Plus Xs) 15 ml PRN AFTMEALHC PRN PO DYSPEPSIA; Start 02/16/19 at 17:00 Magnesium Hydroxide (Milk Of Magnesia) 2,400 mg PRN QHS PRN PO CONSTIPATION; Start 02/16/19 at 17:00 Cyanocobalamin (Vitamin B-12) 1,000 mcg DAILY PO Last administered on 02/19/19at 09:05; Start 02/17/19 at 09:00; Stop 02/19/19 at 18:50; Status DC Acetaminophen/ Hydrocodone Bitart (Lortab 10/325) 1 tab PRN BID PRN PO PAIN Last administered on 02/18/19at 07:25; Start 02/16/19 at 17:45 Acetaminophen/ Hydrocodone Bitart (Lortab 10/325) 1 tab DAILY PRN PO PAIN; Start 02/16/19 at 17:45; Status UNV Methocarbamol (Robaxin) 750 mg BID PO Last administered on 02/21/19at 19:43; Start 02/16/19 at 21:00 Nystatin (Mycostatin) 1 iesha TID TP Last administered on 02/21/19at 21:07; Start 02/16/19 at 21:00 Senna/Docusate Sodium (Senna Plus) 1 tab PRN BID PRN PO CONSTIPATION; Start 02/16/19 at 17:45 Tamsulosin HCl (Flomax) 0.4 mg DAILYWSUP PO Last administered on 02/21/19at 17:14; Start 02/17/19 at 17:00 Acetaminophen (Tylenol) 500 mg PRN Q8HRS PRN PO PAIN / TEMP; Start 02/16/19 at 18:00 Vitamin D (Vitamin D3) 5,000 unit DAILY PO Last administered on 02/21/19 08:23; Start 02/17/19 at 09:00 Folic Acid (Folic Acid) 1 mg DAILY PO Last administered on 02/21/19 08:22; Start 02/17/19 at 09:00 Naproxen (Naprosyn) 375 mg BID PO Last administered on 02/21/19 19:43; Start 02/16/19 at 21:00 Risperidone (RisperDAL) 0.25 mg DAILY SL Last administered on 02/19/19at 09:06; Start 02/18/19 at 09:00; Stop 02/19/19 at 21:45; Status DC Sertraline HCl (Zoloft) 25 mg DAILY PO Last administered on 02/20/19 08:11; Start 02/18/19 at 09:00; Stop 02/20/19 at 09:01; Status DC Sertraline HCl (Zoloft) 50 mg DAILY PO Last administered on 02/21/19at 08:24; Start 02/21/19 at 09:00 Rivastigmine (Exelon) 1 patch DAILY TD Last administered on 02/21/19at 08:26; Start 02/18/19 at 09:00; Stop 02/24/19 at 09:01 Rivastigmine (Exelon) 1 patch DAILY TD ; Start 02/25/19 at 09:00 Risperidone (RisperDAL) 0.5 mg DAILY SL Last administered on 02/21/19at 08:24; Start 02/20/19 at 09:00 Active Scripts Active Reported Flomax (Tamsulosin Hcl) 0.4 Mg Cap.er.24h 1 Cap PO DAILYWSUP Folic Acid 1 Mg Tablet 1 Tab PO DAILY Vitamin B-12 (Cyanocobalamin (Vitamin B-12)) 1,000 Mcg Tablet 1 Tab PO DAILY Senna-S Tablet (Sennosides/Docusate Sodium) 1 Each Tablet 1 Each PO BID PRN Acetaminophen 500 Mg Tablet 1 Tab PO PRN Q8HRS PRN Vitamin D3 (Cholecalciferol (Vitamin D3)) 5,000 Unit Tablet 1 Tab PO DAILY Nystatin 15 Gm Oint...g. 1 Iesha TP TID Naproxen 375 Mg Tablet 1 Tab PO BID Robaxin (Methocarbamol) 500 Mg Tablet 750 Mg PO BID Hydrocodone-Apap 10-325 (Hydrocodone Bit/Acetaminophen) 1 Each Tablet 1 Tab PO DAILY PRN Hydrocodone-Apap 10-325 (Hydrocodone Bit/Acetaminophen) 1 Each Tablet 1 Tab PO BID PRN I have reviewed the current psychotropics carefully including drug interactions. Risk benefit ratio favors no change other than as noted in my dictated progress note. 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
[2019-02-22 06:07] VITALS: BP 127/72
[2019-02-22] MEDS: CHOLECALCIFEROL (VITAMIN D3) 1,000 UNIT TABLET PO SCH (08:28)
[2019-02-22] MEDS: NAPROXEN 375 MG TABLET PO SCH ×2 (08:28→19:22)
[2019-02-22] MEDS: SERTRALINE 50 MG TABLET. PO SCH (08:28)
[2019-02-22] MEDS: RIVASTIGMINE 4.6MG PATCH. TD SCH (08:28)
[2019-02-22] MEDS: FOLIC ACID 1 MG TABLET PO SCH (08:28)
[2019-02-22] MEDS: NYSTATIN 100,000 UNIT/GM TOPICAL OINTMENT 15GM TUBE. TP SCH ×3 (08:29→19:23)
[2019-02-22] MEDS: METHOCARBAMOL 500 MG TABLET PO SCH ×2 (08:29→19:22)
[2019-02-22] MEDS: risperiDONE ORAL 1 MG/ML 30ml BOTTLE. SL SCH (08:30)
[2019-02-22 16:16] VITALS: BP 162/71
[2019-02-22] MEDS: TAMSULOSIN 0.4 MG CAP.ER.24H. PO SCH (16:45)
--- NOTE | 2019-02-22 18:57 | PN ---
DATE: 02/21/2019 PSYCHIATRIC PROGRESS NOTE This late entry 02/21/2019 covers elements not covered in my initial note. SUBJECTIVE: I met with the patient in the evening. I met with him at great length in his room and then he came out to the day room and I was surrounding with other patients. I had many other questions about his discharge plans and medications, which we discussed once again. He slept 10 hours previous night. He has been less suspicious. Per nursing report, less irritable, but when I met with him, he is quite suspicious about what was happening at the hospital amongst other things. I processed this with him. REVIEW OF SYSTEMS: Ambulation impaired, in wheelchair. No CV, , pulmonary, eye, ENT system symptoms on review. MENTAL STATUS EXAM: Oriented to himself and situation. Speech has some latency, coherent, rapid at times. Abstraction fair, computation impaired, language function intact, attention span short. Mood and affect somewhat anxious, labile, but improved. LABORATORY DATA: Reviewed. IMPRESSION: Psychotic disorder, unspecified; major neurocognitive disorder, Alzheimer, vascular with delusion, depression. Rest unchanged per initial note. PLAN: No change from initial note, but we may need to increase Risperdal further depending on his progress. YOLI ONOFRE MD DR: NEO/janae JOB#: [id number] / [id number]
--- NOTE | 2019-02-22 22:30 | PDOC ---
Exam Note: Adam Note: Please also refer to the separate dictated note~for this date of service dictated separately.~Patient seen individually. Discussed the patient with Nursing staff reviewed the chart.~Reviewed interim history and current functioning. Reviewed vital signs,~Labs/ Radiology~and current medications noted below. Continue current treatment with the changes noted in the dictated addendum note Assessment: Vital Signs: Vital Signs Date Time Temp Pulse Resp B/P (MAP) Pulse Ox O2 Delivery O2 Flow Rate FiO2 02/22/19 16:16 98.4 98 19 162/71 (101) 97 02/20/19 15:45 Room Air I&O Intake and Output 02/22/19 07:00 Intake Total 1160 ml Balance 1160 ml Intake Oral 1160 ml # Bowel Movements 1 Current Medications: Meds: Current Medications Acetaminophen (Tylenol) 650 mg PRN Q6HRS PRN PO PAIN / TEMP; Start 02/16/19 at 17:00; Status Cancel Multi-Ingredient Ointment (Analgesic [place]) 1 iesha PRN QID PRN TP MUSCLE PAIN; Start 02/16/19 at 17:00 Al Hydroxide/Mg Hydroxide (Mylanta Plus Xs) 15 ml PRN AFTMEALHC PRN PO DYSPEPSIA; Start 02/16/19 at 17:00 Magnesium Hydroxide (Milk Of Magnesia) 2,400 mg PRN QHS PRN PO CONSTIPATION; Start 02/16/19 at 17:00 Cyanocobalamin (Vitamin B-12) 1,000 mcg DAILY PO Last administered on 02/19/19at 09:05; Start 02/17/19 at 09:00; Stop 02/19/19 at 18:50; Status DC Acetaminophen/ Hydrocodone Bitart (Lortab 10/325) 1 tab PRN BID PRN PO PAIN Last administered on 02/18/19at 07:25; Start 02/16/19 at 17:45 Acetaminophen/ Hydrocodone Bitart (Lortab 10/325) 1 tab DAILY PRN PO PAIN; Start 02/16/19 at 17:45; Status UNV Methocarbamol (Robaxin) 750 mg BID PO Last administered on 02/22/19at 19:22; Start 02/16/19 at 21:00 Nystatin (Mycostatin) 1 iesha TID TP Last administered on 02/22/19at 19:23; Start 02/16/19 at 21:00 Senna/Docusate Sodium (Senna Plus) 1 tab PRN BID PRN PO CONSTIPATION; Start 02/16/19 at 17:45 Tamsulosin HCl (Flomax) 0.4 mg DAILYWSUP PO Last administered on 02/22/19at 16:45; Start 02/17/19 at 17:00 Acetaminophen (Tylenol) 500 mg PRN Q8HRS PRN PO PAIN / TEMP; Start 02/16/19 at 18:00 Vitamin D (Vitamin D3) 5,000 unit DAILY PO Last administered on 02/22/19 08:28; Start 02/17/19 at 09:00 Folic Acid (Folic Acid) 1 mg DAILY PO Last administered on 02/22/19 08:28; Start 02/17/19 at 09:00 Naproxen (Naprosyn) 375 mg BID PO Last administered on 02/22/19 19:22; Start 02/16/19 at 21:00 Risperidone (RisperDAL) 0.25 mg DAILY SL Last administered on 02/19/19 09:06; Start 02/18/19 at 09:00; Stop 02/19/19 at 21:45; Status DC Sertraline HCl (Zoloft) 25 mg DAILY PO Last administered on 02/20/19 08:11; Start 02/18/19 at 09:00; Stop 02/20/19 at 09:01; Status DC Sertraline HCl (Zoloft) 50 mg DAILY PO Last administered on 02/22/19 08:28; Start 02/21/19 at 09:00 Rivastigmine (Exelon) 1 patch DAILY TD Last administered on 02/22/19 08:28; Start 02/18/19 at 09:00; Stop 02/24/19 at 09:01 Rivastigmine (Exelon) 1 patch DAILY TD ; Start 02/25/19 at 09:00 Risperidone (RisperDAL) 0.5 mg DAILY SL Last administered on 02/22/19at 08:30; Start 02/20/19 at 09:00 Active Scripts Active Reported Flomax (Tamsulosin Hcl) 0.4 Mg Cap.er.24h 1 Cap PO DAILYWSUP Folic Acid 1 Mg Tablet 1 Tab PO DAILY Vitamin B-12 (Cyanocobalamin (Vitamin B-12)) 1,000 Mcg Tablet 1 Tab PO DAILY Senna-S Tablet (Sennosides/Docusate Sodium) 1 Each Tablet 1 Each PO BID PRN Acetaminophen 500 Mg Tablet 1 Tab PO PRN Q8HRS PRN Vitamin D3 (Cholecalciferol (Vitamin D3)) 5,000 Unit Tablet 1 Tab PO DAILY Nystatin 15 Gm Oint...g. 1 Iesha TP TID Naproxen 375 Mg Tablet 1 Tab PO BID Robaxin (Methocarbamol) 500 Mg Tablet 750 Mg PO BID Hydrocodone-Apap 10-325 (Hydrocodone Bit/Acetaminophen) 1 Each Tablet 1 Tab PO DAILY PRN Hydrocodone-Apap 10-325 (Hydrocodone Bit/Acetaminophen) 1 Each Tablet 1 Tab PO BID PRN I have reviewed the current psychotropics carefully including drug interactions. Risk benefit ratio favors no change other than as noted in my dictated progress note. 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
[2019-02-23 05:47] VITALS: BP 134/78
[2019-02-23] MEDS: risperiDONE ORAL 1 MG/ML 30ml BOTTLE. SL SCH (08:52)
[2019-02-23] MEDS: NAPROXEN 375 MG TABLET PO SCH ×2 (08:53→19:48)
[2019-02-23] MEDS: METHOCARBAMOL 500 MG TABLET PO SCH ×2 (08:53→19:49)
[2019-02-23] MEDS: RIVASTIGMINE 4.6MG PATCH. TD SCH (08:54)
[2019-02-23] MEDS: SERTRALINE 50 MG TABLET. PO SCH (08:54)
[2019-02-23] MEDS: FOLIC ACID 1 MG TABLET PO SCH (08:55)
[2019-02-23] MEDS: CHOLECALCIFEROL (VITAMIN D3) 1,000 UNIT TABLET PO SCH (08:56)
[2019-02-23] MEDS: NYSTATIN 100,000 UNIT/GM TOPICAL OINTMENT 15GM TUBE. TP SCH ×3 (08:56→19:51)
[2019-02-23] MEDS: METHYL SALICYLATE/MENTHOL TOPICAL OINTMENT 29GM TUBE. TP PRN (14:07)
[2019-02-23 16:22] VITALS: BP 143/70
[2019-02-23] MEDS: TAMSULOSIN 0.4 MG CAP.ER.24H. PO SCH (17:32)
--- NOTE | 2019-02-23 19:42 | PN ---
DATE: 02/22/2019 PSYCHIATRIC PROGRESS NOTE This late entry 02/22/2019 covers elements not covered in my initial note. SUBJECTIVE: I met with the patient in the evening in his room. The patient slept 8-1/2 hours previous night. He is compliant with treatment and physical therapy, and attended groups and takes his medications, which is all an improvement and he is less paranoid and psychotic. REVIEW OF SYSTEMS: Ambulation impaired with walker. No CV, , pulmonary, eye, ENT system symptoms on review. MENTAL STATUS EXAM: Oriented to himself and situation. Speech has some latency, coherent. Abstraction fair, computation impaired, language function intact, attention span short. Mood and affect somewhat anxious, labile. LABORATORY DATA: Reviewed. IMPRESSION: Unchanged from initial note. PLAN: No change from initial note and we have increased the Risperdal. We will reassess in a day or so. MAN Vikram ONOFRE MD DR: NEO/janae JOB#: [id number] / [id number]
--- NOTE | 2019-02-23 22:37 | PDOC ---
Exam Note: Adam Note: Please also refer to the separate dictated note~for this date of service dictated separately.~Patient seen individually. Discussed the patient with Nursing staff reviewed the chart.~Reviewed interim history and current functioning. Reviewed vital signs,~Labs/ Radiology~and current medications noted below. Continue current treatment with the changes noted in the dictated addendum note Assessment: Vital Signs: Vital Signs Date Time Temp Pulse Resp B/P (MAP) Pulse Ox O2 Delivery O2 Flow Rate FiO2 02/23/19 16:22 98.6 106 18 143/70 (94) 97 02/20/19 15:45 Room Air I&O Intake and Output 02/23/19 06:59 Intake Total 1120 ml Balance 1120 ml Intake Oral 1120 ml # Voids 1 Current Medications: Meds: Current Medications Acetaminophen (Tylenol) 650 mg PRN Q6HRS PRN PO PAIN / TEMP; Start 02/16/19 at 17:00; Status Cancel Multi-Ingredient Ointment (Analgesic [place]) 1 iesha PRN QID PRN TP MUSCLE PAIN Last administered on 02/23/19at 14:07; Start 02/16/19 at 17:00 Al Hydroxide/Mg Hydroxide (Mylanta Plus Xs) 15 ml PRN AFTMEALHC PRN PO DYSPEPSIA; Start 02/16/19 at 17:00 Magnesium Hydroxide (Milk Of Magnesia) 2,400 mg PRN QHS PRN PO CONSTIPATION; Start 02/16/19 at 17:00 Cyanocobalamin (Vitamin B-12) 1,000 mcg DAILY PO Last administered on 02/19/19at 09:05; Start 02/17/19 at 09:00; Stop 02/19/19 at 18:50; Status DC Acetaminophen/ Hydrocodone Bitart (Lortab 10/325) 1 tab PRN BID PRN PO PAIN Last administered on 02/18/19at 07:25; Start 02/16/19 at 17:45 Acetaminophen/ Hydrocodone Bitart (Lortab 10/325) 1 tab DAILY PRN PO PAIN; Start 02/16/19 at 17:45; Status UNV Methocarbamol (Robaxin) 750 mg BID PO Last administered on 02/23/19at 19:49; Start 02/16/19 at 21:00 Nystatin (Mycostatin) 1 iesha TID TP Last administered on 02/23/19 19:51; Start 02/16/19 at 21:00 Senna/Docusate Sodium (Senna Plus) 1 tab PRN BID PRN PO CONSTIPATION; Start 02/16/19 at 17:45 Tamsulosin HCl (Flomax) 0.4 mg DAILYWSUP PO Last administered on 02/23/19 17:32; Start 02/17/19 at 17:00 Acetaminophen (Tylenol) 500 mg PRN Q8HRS PRN PO PAIN / TEMP; Start 02/16/19 at 18:00 Vitamin D (Vitamin D3) 5,000 unit DAILY PO Last administered on 02/23/19 08:56; Start 02/17/19 at 09:00 Folic Acid (Folic Acid) 1 mg DAILY PO Last administered on 02/23/19 08:55; Start 02/17/19 at 09:00 Naproxen (Naprosyn) 375 mg BID PO Last administered on 02/23/19 19:48; Start 02/16/19 at 21:00 Risperidone (RisperDAL) 0.25 mg DAILY SL Last administered on 02/19/19 09:06; Start 02/18/19 at 09:00; Stop 02/19/19 at 21:45; Status DC Sertraline HCl (Zoloft) 25 mg DAILY PO Last administered on 02/20/19 08:11; Start 02/18/19 at 09:00; Stop 02/20/19 at 09:01; Status DC Sertraline HCl (Zoloft) 50 mg DAILY PO Last administered on 02/23/19 08:54; Start 02/21/19 at 09:00 Rivastigmine (Exelon) 1 patch DAILY TD Last administered on 02/23/19 08:54; Start 02/18/19 at 09:00; Stop 02/24/19 at 09:01 Rivastigmine (Exelon) 1 patch DAILY TD ; Start 02/25/19 at 09:00 Risperidone (RisperDAL) 0.5 mg DAILY SL Last administered on 02/23/19 08:52; Start 02/20/19 at 09:00 Active Scripts Active Reported Flomax (Tamsulosin Hcl) 0.4 Mg Cap.er.24h 1 Cap PO DAILYWSUP Folic Acid 1 Mg Tablet 1 Tab PO DAILY Vitamin B-12 (Cyanocobalamin (Vitamin B-12)) 1,000 Mcg Tablet 1 Tab PO DAILY Senna-S Tablet (Sennosides/Docusate Sodium) 1 Each Tablet 1 Each PO BID PRN Acetaminophen 500 Mg Tablet 1 Tab PO PRN Q8HRS PRN Vitamin D3 (Cholecalciferol (Vitamin D3)) 5,000 Unit Tablet 1 Tab PO DAILY Nystatin 15 Gm Oint...g. 1 Iesha TP TID Naproxen 375 Mg Tablet 1 Tab PO BID Robaxin (Methocarbamol) 500 Mg Tablet 750 Mg PO BID Hydrocodone-Apap 10-325 (Hydrocodone Bit/Acetaminophen) 1 Each Tablet 1 Tab PO DAILY PRN Hydrocodone-Apap 10-325 (Hydrocodone Bit/Acetaminophen) 1 Each Tablet 1 Tab PO BID PRN I have reviewed the current psychotropics carefully including drug interactions. Risk benefit ratio favors no change other than as noted in my dictated progress note. Diagnosis: Problems: (1) Anxiety disorder (2) Dementia in Alzheimer's disease with delusions (3) Dementia in Alzheimer's disease with depression (4) Dementia, vascular, with delusions (5) Dementia, vascular, with depression (6) Impulse control disorder (7) Psychosis, atypical (8) Major depressive disorder, recurrent episode YOLI ONOFRE MD February 23, 2019 22:37
[2019-02-24] MEDS: ACETAMINOPHEN 500 MG TABLET PO PRN ×2 (05:04→18:21)
[2019-02-24 05:49] VITALS: BP 145/74
[2019-02-24] MEDS: METHOCARBAMOL 500 MG TABLET PO SCH ×2 (10:16→20:24)
[2019-02-24] MEDS: CHOLECALCIFEROL (VITAMIN D3) 1,000 UNIT TABLET PO SCH (10:16)
[2019-02-24] MEDS: NAPROXEN 375 MG TABLET PO SCH ×2 (10:17→20:24)
[2019-02-24] MEDS: risperiDONE ORAL 1 MG/ML 30ml BOTTLE. SL SCH (10:17)
[2019-02-24] MEDS: FOLIC ACID 1 MG TABLET PO SCH (10:17)
[2019-02-24] MEDS: SERTRALINE 50 MG TABLET. PO SCH (10:17)
[2019-02-24] MEDS: RIVASTIGMINE 4.6MG PATCH. TD SCH (10:18)
[2019-02-24] MEDS: NYSTATIN 100,000 UNIT/GM TOPICAL OINTMENT 15GM TUBE. TP SCH ×3 (10:18→20:26)
[2019-02-24 15:48] VITALS: BP 130/72
[2019-02-24] MEDS: TAMSULOSIN 0.4 MG CAP.ER.24H. PO SCH (17:04)
--- NOTE | 2019-02-24 22:29 | PDOC ---
Exam Note: Adam Note: Please also refer to the separate dictated note~for this date of service dictated separately.~Patient seen individually. Discussed the patient with Nursing staff reviewed the chart.~Reviewed interim history and current functioning. Reviewed vital signs,~Labs/ Radiology~and current medications noted below. Continue current treatment with the changes noted in the dictated addendum note Assessment: Vital Signs: Vital Signs Date Time Temp Pulse Resp B/P (MAP) Pulse Ox O2 Delivery O2 Flow Rate FiO2 02/24/19 15:48 97.6 87 17 130/72 (91) 97 Room Air I&O Intake and Output 02/24/19 07:00 Intake Total 1040 ml Balance 1040 ml Intake Oral 1040 ml Current Medications: Meds: Current Medications Acetaminophen (Tylenol) 650 mg PRN Q6HRS PRN PO PAIN / TEMP; Start 02/16/19 at 17:00; Status Cancel Multi-Ingredient Ointment (Analgesic [place]) 1 iesha PRN QID PRN TP MUSCLE PAIN Last administered on 02/23/19at 14:07; Start 02/16/19 at 17:00 Al Hydroxide/Mg Hydroxide (Mylanta Plus Xs) 15 ml PRN AFTMEALHC PRN PO DYSPEPSIA; Start 02/16/19 at 17:00 Magnesium Hydroxide (Milk Of Magnesia) 2,400 mg PRN QHS PRN PO CONSTIPATION; Start 02/16/19 at 17:00 Cyanocobalamin (Vitamin B-12) 1,000 mcg DAILY PO Last administered on 02/19/19at 09:05; Start 02/17/19 at 09:00; Stop 02/19/19 at 18:50; Status DC Acetaminophen/ Hydrocodone Bitart (Lortab 10/325) 1 tab PRN BID PRN PO PAIN Last administered on 02/18/19at 07:25; Start 02/16/19 at 17:45 Acetaminophen/ Hydrocodone Bitart (Lortab 10/325) 1 tab DAILY PRN PO PAIN; Start 02/16/19 at 17:45; Status UNV Methocarbamol (Robaxin) 750 mg BID PO Last administered on 02/24/19at 20:24; Start 02/16/19 at 21:00 Nystatin (Mycostatin) 1 iesha TID TP Last administered on 02/24/19at 20:26; Start 02/16/19 at 21:00 Senna/Docusate Sodium (Senna Plus) 1 tab PRN BID PRN PO CONSTIPATION; Start 02/16/19 at 17:45 Tamsulosin HCl (Flomax) 0.4 mg DAILYWSUP PO Last administered on 02/24/19 17:04; Start 02/17/19 at 17:00 Acetaminophen (Tylenol) 500 mg PRN Q8HRS PRN PO PAIN / TEMP Last administered on 02/24/19 18:21; Start 02/16/19 at 18:00 Vitamin D (Vitamin D3) 5,000 unit DAILY PO Last administered on 02/24/19 10:16; Start 02/17/19 at 09:00 Folic Acid (Folic Acid) 1 mg DAILY PO Last administered on 02/24/19 10:17; Start 02/17/19 at 09:00 Naproxen (Naprosyn) 375 mg BID PO Last administered on 02/24/19 20:24; Start 02/16/19 at 21:00 Risperidone (RisperDAL) 0.25 mg DAILY SL Last administered on 02/19/19 09:06; Start 02/18/19 at 09:00; Stop 02/19/19 at 21:45; Status DC Sertraline HCl (Zoloft) 25 mg DAILY PO Last administered on 02/20/19 08:11; Start 02/18/19 at 09:00; Stop 02/20/19 at 09:01; Status DC Sertraline HCl (Zoloft) 50 mg DAILY PO Last administered on 02/24/19 10:17; Start 02/21/19 at 09:00 Rivastigmine (Exelon) 1 patch DAILY TD Last administered on 02/24/19 10:18; Start 02/18/19 at 09:00; Stop 02/24/19 at 09:01; Status DC Rivastigmine (Exelon) 1 patch DAILY TD ; Start 02/25/19 at 09:00 Risperidone (RisperDAL) 0.5 mg DAILY SL Last administered on 02/24/19 10:17; Start 02/20/19 at 09:00 Active Scripts Active Reported Flomax (Tamsulosin Hcl) 0.4 Mg Cap.er.24h 1 Cap PO DAILYWSUP Folic Acid 1 Mg Tablet 1 Tab PO DAILY Vitamin B-12 (Cyanocobalamin (Vitamin B-12)) 1,000 Mcg Tablet 1 Tab PO DAILY Senna-S Tablet (Sennosides/Docusate Sodium) 1 Each Tablet 1 Each PO BID PRN Acetaminophen 500 Mg Tablet 1 Tab PO PRN Q8HRS PRN Vitamin D3 (Cholecalciferol (Vitamin D3)) 5,000 Unit Tablet 1 Tab PO DAILY Nystatin 15 Gm Oint...g. 1 Iesha TP TID Naproxen 375 Mg Tablet 1 Tab PO BID Robaxin (Methocarbamol) 500 Mg Tablet 750 Mg PO BID Hydrocodone-Apap 10-325 (Hydrocodone Bit/Acetaminophen) 1 Each Tablet 1 Tab PO DAILY PRN Hydrocodone-Apap 10-325 (Hydrocodone Bit/Acetaminophen) 1 Each Tablet 1 Tab PO BID PRN I have reviewed the current psychotropics carefully including drug interactions. Risk benefit ratio favors no change other than as noted in my dictated progress note. Diagnosis: Problems: (1) Anxiety disorder (2) Dementia in Alzheimer's disease with delusions (3) Dementia in Alzheimer's disease with depression (4) Dementia, vascular, with delusions (5) Dementia, vascular, with depression (6) Impulse control disorder (7) Psychosis, atypical (8) Major depressive disorder, recurrent episode YOLI ONOFRE MD February 24, 2019 22:29
[2019-02-25] MEDS: ACETAMINOPHEN 500 MG TABLET PO PRN ×2 (06:11→20:48)
[2019-02-25 06:16] VITALS: BP 128/75
[2019-02-25] MEDS: SERTRALINE 50 MG TABLET. PO SCH (08:20)
[2019-02-25] MEDS: FOLIC ACID 1 MG TABLET PO SCH (08:20)
[2019-02-25] MEDS: METHOCARBAMOL 500 MG TABLET PO SCH ×2 (08:21→20:43)
[2019-02-25] MEDS: TAMSULOSIN 0.4 MG CAP.ER.24H. PO SCH (08:21)
[2019-02-25] MEDS: CHOLECALCIFEROL (VITAMIN D3) 1,000 UNIT TABLET PO SCH (08:29)
[2019-02-25] MEDS: RIVASTIGMINE 9.5MG PATCH. TD SCH (08:29)
[2019-02-25] MEDS: NAPROXEN 375 MG TABLET PO SCH ×2 (08:31→20:43)
[2019-02-25] MEDS: METHYL SALICYLATE/MENTHOL TOPICAL OINTMENT 29GM TUBE. TP PRN (08:32)
[2019-02-25] MEDS: risperiDONE ORAL 1 MG/ML 30ml BOTTLE. SL SCH (08:32)
[2019-02-25] MEDS: NYSTATIN 100,000 UNIT/GM TOPICAL OINTMENT 15GM TUBE. TP SCH ×3 (08:34→20:49)
[2019-02-25 16:46] VITALS: BP 119/65
--- NOTE | 2019-02-25 20:11 | PN ---
DATE: 02/23/2019 PSYCHIATRIC PROGRESS NOTE This late entry 02/23/2019 covers elements not covered in my initial note. SUBJECTIVE: I met with the patient in the evening of 02/23/2019. The patient slept 8-1/4 hours previous night. He is compliant with his medications. Appetite fair. REVIEW OF SYSTEMS: Positive for low back pain, impaired ambulation, in wheelchair. No CV, , pulmonary, eye system symptoms on review. MENTAL STATUS EXAM: Oriented to himself and situation. Speech has some latency, coherent. Abstraction fair, computation impaired, language function intact, attention span short. Mood and affect remain somewhat anxious, but clear. Psychotic symptoms seemed to be better as is the paranoia. IMPRESSION: Unchanged from initial note. PLAN: No change from initial note. MAN Vikram ONOFRE MD DR: NEO/janae JOB#: [id number] / [id number]
--- NOTE | 2019-02-25 21:54 | PN ---
DATE: 02/24/2019 PSYCHIATRIC PROGRESS NOTE This late entry 02/24/2019 covers elements not covered in my initial note. SUBJECTIVE: I met with the patient in the evening at some length. Staffed at a treatment team meeting in the morning. Reviewed the patient's history. He has been attending groups Appetite 100%, sleeping about 7-1/2 hours. Pleasant and cooperative, does cooperate with physical therapy. His son is a nurse and is involved in the patient's care. REVIEW OF SYSTEMS: Ambulation impaired, in wheelchair. No CV, , pulmonary, eye, ENT system symptoms on review. MENTAL STATUS EXAM: Oriented to himself and situation. Speech has some latency, coherent. Abstraction fair, computation impaired, language function intact, attention span short. Mood is somewhat anxious, less paranoid. Does have short term memory deficits. LABORATORY DATA: Reviewed. IMPRESSION: Unchanged from initial note. 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 PLAN: Reportedly, there is some push to have the patient reside in a memory care unit. He may actually function better in an assisted living, which would be a step-down from his current independent living rather than going to a memory care unit, but I let the social service staff discuss with the family and the patient to coordinate all of this. No change from initial note. Continue current psychotropics including Risperdal 0.5 mg daily. MAN Vikram ONOFRE MD DR: NEO/janae JOB#: [id number] / [id number]
--- NOTE | 2019-02-25 22:30 | PDOC ---
Exam Note: Adam Note: Please also refer to the separate dictated note~for this date of service dictated separately.~Patient seen individually. Discussed the patient with Nursing staff reviewed the chart.~Reviewed interim history and current functioning. Reviewed vital signs,~Labs/ Radiology~and current medications noted below. Continue current treatment with the changes noted in the dictated addendum note Assessment: Vital Signs: Vital Signs Date Time Temp Pulse Resp B/P (MAP) Pulse Ox O2 Delivery O2 Flow Rate FiO2 02/25/19 16:46 98.9 89 16 119/65 (83) 99 02/24/19 15:48 Room Air I&O Intake and Output 02/25/19 07:00 Intake Total 840 ml Balance 840 ml Intake Oral 840 ml Current Medications: Meds: Current Medications Acetaminophen (Tylenol) 650 mg PRN Q6HRS PRN PO PAIN / TEMP; Start 02/16/19 at 17:00; Status Cancel Multi-Ingredient Ointment (Analgesic [place]) 1 iesha PRN QID PRN TP MUSCLE PAIN Last administered on 02/25/19at 08:32; Start 02/16/19 at 17:00 Al Hydroxide/Mg Hydroxide (Mylanta Plus Xs) 15 ml PRN AFTMEALHC PRN PO DYSPEPSIA; Start 02/16/19 at 17:00 Magnesium Hydroxide (Milk Of Magnesia) 2,400 mg PRN QHS PRN PO CONSTIPATION; Start 02/16/19 at 17:00 Cyanocobalamin (Vitamin B-12) 1,000 mcg DAILY PO Last administered on 02/19/19 09:05; Start 02/17/19 at 09:00; Stop 02/19/19 at 18:50; Status DC Acetaminophen/ Hydrocodone Bitart (Lortab 10/325) 1 tab PRN BID PRN PO PAIN Last administered on 02/18/19at 07:25; Start 02/16/19 at 17:45 Acetaminophen/ Hydrocodone Bitart (Lortab 10/325) 1 tab DAILY PRN PO PAIN; Start 02/16/19 at 17:45; Status UNV Methocarbamol (Robaxin) 750 mg BID PO Last administered on 02/25/19at 20:43; Start 02/16/19 at 21:00 Nystatin (Mycostatin) 1 iesha TID TP Last administered on 02/25/19 20:49; Start 02/16/19 at 21:00 Senna/Docusate Sodium (Senna Plus) 1 tab PRN BID PRN PO CONSTIPATION; Start 02/16/19 at 17:45 Tamsulosin HCl (Flomax) 0.4 mg DAILYWSUP PO Last administered on 02/25/19 08:21; Start 02/17/19 at 17:00 Acetaminophen (Tylenol) 500 mg PRN Q8HRS PRN PO PAIN / TEMP Last administered on 02/25/19 20:48; Start 02/16/19 at 18:00 Vitamin D (Vitamin D3) 5,000 unit DAILY PO Last administered on 02/25/19 08:29; Start 02/17/19 at 09:00 Folic Acid (Folic Acid) 1 mg DAILY PO Last administered on 02/25/19 08:20; Start 02/17/19 at 09:00 Naproxen (Naprosyn) 375 mg BID PO Last administered on 02/25/19 20:43; Start 02/16/19 at 21:00 Risperidone (RisperDAL) 0.25 mg DAILY SL Last administered on 02/19/19 09:06; Start 02/18/19 at 09:00; Stop 02/19/19 at 21:45; Status DC Sertraline HCl (Zoloft) 25 mg DAILY PO Last administered on 02/20/19 08:11; Start 02/18/19 at 09:00; Stop 02/20/19 at 09:01; Status DC Sertraline HCl (Zoloft) 50 mg DAILY PO Last administered on 02/25/19 08:20; Start 02/21/19 at 09:00 Rivastigmine (Exelon) 1 patch DAILY TD Last administered on 02/24/19 10:18; Start 02/18/19 at 09:00; Stop 02/24/19 at 09:01; Status DC Rivastigmine (Exelon) 1 patch DAILY TD Last administered on 02/25/19 08:29; Start 02/25/19 at 09:00 Risperidone (RisperDAL) 0.5 mg DAILY SL Last administered on 02/25/19 08:32; Start 02/20/19 at 09:00 Active Scripts Active Reported Flomax (Tamsulosin Hcl) 0.4 Mg Cap.er.24h 1 Cap PO DAILYWSUP Folic Acid 1 Mg Tablet 1 Tab PO DAILY Vitamin B-12 (Cyanocobalamin (Vitamin B-12)) 1,000 Mcg Tablet 1 Tab PO DAILY Senna-S Tablet (Sennosides/Docusate Sodium) 1 Each Tablet 1 Each PO BID PRN Acetaminophen 500 Mg Tablet 1 Tab PO PRN Q8HRS PRN Vitamin D3 (Cholecalciferol (Vitamin D3)) 5,000 Unit Tablet 1 Tab PO DAILY Nystatin 15 Gm Oint...g. 1 Iesha TP TID Naproxen 375 Mg Tablet 1 Tab PO BID Robaxin (Methocarbamol) 500 Mg Tablet 750 Mg PO BID Hydrocodone-Apap 10-325 (Hydrocodone Bit/Acetaminophen) 1 Each Tablet 1 Tab PO DAILY PRN Hydrocodone-Apap 10-325 (Hydrocodone Bit/Acetaminophen) 1 Each Tablet 1 Tab PO BID PRN I have reviewed the current psychotropics carefully including drug interactions. Risk benefit ratio favors no change other than as noted in my dictated progress note. 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
[2019-02-26] MEDS ORDERED: ACETAMINOPHEN 500 MG TABLET PO PRN (00:30)
[2019-02-26 06:06] VITALS: BP 131/77
[2019-02-26] MEDS: FOLIC ACID 1 MG TABLET PO SCH (08:13)
[2019-02-26] MEDS: METHOCARBAMOL 500 MG TABLET PO SCH ×2 (08:14→20:11)
[2019-02-26] MEDS: NAPROXEN 375 MG TABLET PO SCH ×2 (08:14→20:11)
[2019-02-26] MEDS: ACETAMINOPHEN 500 MG TABLET PO SCH ×3 (08:15→22:00)
[2019-02-26] MEDS: CHOLECALCIFEROL (VITAMIN D3) 1,000 UNIT TABLET PO SCH (08:16)
[2019-02-26] MEDS: RIVASTIGMINE 9.5MG PATCH. TD SCH (08:16)
[2019-02-26] MEDS: risperiDONE ORAL 1 MG/ML 30ml BOTTLE. SL SCH (08:16)
[2019-02-26] MEDS: SERTRALINE 50 MG TABLET. PO SCH (08:16)
[2019-02-26] MEDS: NYSTATIN 100,000 UNIT/GM TOPICAL OINTMENT 15GM TUBE. TP SCH ×3 (09:30→20:12)
[2019-02-26 09:53] LABS: BASO # 0.1 x10^3/uL (0.0-0.2); BASO % 8 % (0-3); EOS % 1 % (0-3); HEMATOCRIT 23.8 % (39.0-53.0); HEMOGLOBIN 8.2 g/dL (13.0-17.5); LYMPH # 0.5 x10^3/uL (1.0-4.8); LYMPH % 28 % (24-48); MEAN CORPUSCULAR HEMOGLOBIN 38 pg (25-35); MEAN CORPUSCULAR HGB CONC 35 g/dL (31-37); MEAN CORPUSCULAR VOLUME 111 fL (79-100); MONO # 0.1 x10^3/uL (0.0-1.1); MONO % 7 % (0-9); NEUT # 1.1 x10^3uL (1.8-7.7); NEUT % 56 % (31-73); PLATELET COUNT 73 x10^3/uL (140-400); RED BLOOD COUNT 2.15 x10^6/uL (4.30-5.70); RED CELL DISTRIBUTION WIDTH 14.8 % (11.5-14.5)
[2019-02-26 09:55] LABS: WHITE BLOOD COUNT 1.9 x10^3/uL (4.0-11.0)
[2019-02-26 09:56] LABS: ALBUMIN 3.3 g/dL (3.4-5.0); ALBUMIN/GLOBULIN RATIO 1.2 (1.0-1.7); CALCIUM 8.6 mg/dL (8.5-10.1); CREATININE 0.8 mg/dL (0.7-1.3); GFR 91.4; TOTAL BILIRUBIN 0.6 mg/dL (0.2-1.0); TOTAL PROTEIN 6.1 g/dL (6.4-8.2)
[2019-02-26 10:51] LABS: % ATYL 1 % (0-0); % BANDS 1 % (0-9); % BASOS 5 % (0-3); % EOS 1 % (0-5); % LYMPHS 33 % (24-48); % MONOS 3 % (0-10); % MYELOS 1 % (0-0); % SEGS 55 % (35-66)
[2019-02-26 10:52] LABS: PLT ESTIMATE DECREASED (ADEQUATE)
[2019-02-26 10:53] LABS: ANISOCYTOSIS SLIGHT; OVALOCYTES OCC; POLYCHROMASIA SLIGHT
[2019-02-26 10:54] LABS: TEAR DROP CELLS OCC
--- NOTE | 2019-02-26 15:41 | PN ---
DATE: 02/25/2019 PSYCHIATRIC PROGRESS NOTE This late entry 02/25/2019 covers elements not covered in my initial note. SUBJECTIVE: I met with the patient at some length in the evening in his room. Per nursing report, the patient slept 8-3/4 hours previous night. He has been obsessive regarding wanting Tylenol for his pain, but otherwise much less psychotic. REVIEW OF SYSTEMS: No CV, , pulmonary, eye, ENT system symptoms on review. Reliability somewhat poor. He ambulates with a walker, standby assist. MENTAL STATUS EXAM: Oriented to himself and situation. Speech is coherent, at times, somewhat pressured. Abstraction fair, computation impaired, language function intact, attention span short. Mood and affect showing improvement. LABORATORY DATA: Reviewed. IMPRESSION: Unchanged from initial note. PLAN: No change note from initial note. MAN Vikram ONOFRE MD DR: NEO/janae JOB#: [id number] / [id number]
[2019-02-26] MEDS: TAMSULOSIN 0.4 MG CAP.ER.24H. PO SCH (16:43)
[2019-02-26 16:45] VITALS: BP 152/83
--- NOTE | 2019-02-26 20:09 | PN ---
DATE: 02/26/2019 PSYCHIATRIC PROGRESS NOTE This note covers elements not covered in my template note. SUBJECTIVE: I met with the patient in the morning of 02/26/2019. Overall, from a psychiatric standpoint, the patient has been fairly cooperative, but his white cell counts are significantly reduced. We will defer to Dr. Anderson for this. His white cell counts were low, even prior to his psychotropics. We will also pharmacy consult to clarify whether there could be any psychotropic impacting the white cell counts and reassess. REVIEW OF SYSTEMS: Ambulation impaired, in wheelchair. No CV, , pulmonary, eye system symptoms on review. MENTAL STATUS EXAM: The patient is oriented to himself and situation. Speech is coherent, at times, somewhat pressured. Abstraction fair, computation impaired, language function intact, attention span short. Mood and affect, somewhat anxious, at times labile, but less than before. 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 LABORATORY DATA: Reviewed. IMPRESSION: Major neurocognitive disorder, Alzheimer, vascular with delusion, depression, behavioral disturbance, psychotic disorder, unspecified. Rest unchanged. PLAN: Continue psychotropics from initial note. Defer medical management to Dr. Anderson. YOLI ONOFRE MD DR: NEO/janae JOB#: [id number] / [id number]
[2019-02-27] MEDS: ACETAMINOPHEN 500 MG TABLET PO SCH ×3 (05:50→19:59)
[2019-02-27 07:03] VITALS: BP 138/72
[2019-02-27] MEDS: NAPROXEN 375 MG TABLET PO SCH ×2 (08:43→20:01)
[2019-02-27] MEDS: FOLIC ACID 1 MG TABLET PO SCH (08:43)
[2019-02-27] MEDS: METHOCARBAMOL 500 MG TABLET PO SCH ×2 (08:44→20:02)
[2019-02-27] MEDS: RIVASTIGMINE 9.5MG PATCH. TD SCH (08:45)
[2019-02-27] MEDS: CHOLECALCIFEROL (VITAMIN D3) 1,000 UNIT TABLET PO SCH (08:45)
[2019-02-27] MEDS: SERTRALINE 50 MG TABLET. PO SCH (08:45)
[2019-02-27] MEDS: NYSTATIN 100,000 UNIT/GM TOPICAL OINTMENT 15GM TUBE. TP SCH ×3 (08:46→20:03)
[2019-02-27 10:36] LABS: BASO # 0.1 x10^3/uL (0.0-0.2); BASO % 7 % (0-3); EOS % 1 % (0-3); HEMATOCRIT 24.3 % (39.0-53.0); HEMOGLOBIN 8.3 g/dL (13.0-17.5); LYMPH # 0.5 x10^3/uL (1.0-4.8); LYMPH % 29 % (24-48); MEAN CORPUSCULAR HEMOGLOBIN 38 pg (25-35); MEAN CORPUSCULAR HGB CONC 34 g/dL (31-37); MEAN CORPUSCULAR VOLUME 111 fL (79-100); MONO # 0.1 x10^3/uL (0.0-1.1); MONO % 5 % (0-9); NEUT % 58 % (31-73); PLATELET COUNT 70 x10^3/uL (140-400); RED CELL DISTRIBUTION WIDTH 14.7 % (11.5-14.5)
[2019-02-27 10:37] LABS: WHITE BLOOD COUNT 1.8 x10^3/uL (4.0-11.0)
[2019-02-27 16:19] VITALS: BP 136/69
[2019-02-27] MEDS: TAMSULOSIN 0.4 MG CAP.ER.24H. PO SCH (17:00)
[2019-02-27] MEDS ORDERED: LORazepam 0.5 MG TABLET PO PRN (17:15)
[2019-02-27] MEDS ORDERED: TBO-FILGRASTIM 300 MCG/0.5 ML SYRINGE. SQ SCH (21:00)
--- NOTE | 2019-02-27 23:45 | PDOC ---
Exam Note: Adam Note: Late entry for DOS 02/26/2019. Please also refer to the separate dictated note~for this date of service dictated separately.~Patient seen individually. Discussed the patient with Nursing staff reviewed the chart.~Reviewed interim history and current functioning. Reviewed vital signs,~Labs/ Radiology~and current medications noted below. Continue current treatment with the changes noted in the dictated addendum note Assessment: Vital Signs: VS - Last 72 Hours, by Label Date Time Temp Pulse Resp B/P (MAP) Pulse Ox O2 Delivery O2 Flow Rate FiO2 02/27/19 16:19 98.4 85 18 136/69 (91) 94 02/27/19 07:03 98.2 65 16 138/72 (94) 96 02/26/19 16:45 97.6 85 20 152/83 (106) 97 02/26/19 06:06 97.8 73 16 131/77 (95) 99 02/25/19 16:46 98.9 89 16 119/65 (83) 99 02/25/19 06:16 97.9 67 20 128/75 (92) 96 Vital Signs Date Time Temp Pulse Resp B/P (MAP) Pulse Ox O2 Delivery O2 Flow Rate FiO2 02/27/19 16:19 98.4 85 18 136/69 (91) 94 02/24/19 15:48 Room Air I&O Intake and Output 02/27/19 06:59 Intake Total 840 ml Balance 840 ml Intake Oral 840 ml Labs: Laboratory Tests Test 02/27/19 09:53 White Blood Count 1.8 x10^3/uL (4.0-11.0) *L Red Blood Count 2.20 x10^6/uL (4.30-5.70) L Hemoglobin 8.3 g/dL (13.0-17.5) L Hematocrit 24.3 % (39.0-53.0) L Mean Corpuscular Volume 111 fL (79-100) H Mean Corpuscular Hemoglobin 38 pg (25-35) H Mean Corpuscular Hemoglobin Concent 34 g/dL (31-37) Red Cell Distribution Width 14.7 % (11.5-14.5) H Platelet Count 70 x10^3/uL (140-400) L Neutrophils (%) (Auto) 58 % (31-73) Lymphocytes (%) (Auto) 29 % (24-48) Monocytes (%) (Auto) 5 % (0-9) Eosinophils (%) (Auto) 1 % (0-3) Basophils (%) (Auto) 7 % (0-3) H Neutrophils # (Auto) 1.0 x10^3uL (1.8-7.7) L Lymphocytes # (Auto) 0.5 x10^3/uL (1.0-4.8) L Monocytes # (Auto) 0.1 x10^3/uL (0.0-1.1) Eosinophils # (Auto) 0.0 x10^3/uL (0.0-0.7) Basophils # (Auto) 0.1 x10^3/uL (0.0-0.2) Current Medications: Meds: Current Medications Acetaminophen (Tylenol) 650 mg PRN Q6HRS PRN PO PAIN / TEMP; Start 02/16/19 at 17:00; Status Cancel Multi-Ingredient Ointment (Analgesic [place]) 1 iesha PRN QID PRN TP MUSCLE PAIN Last administered on 02/25/19at 08:32; Start 02/16/19 at 17:00 Al Hydroxide/Mg Hydroxide (Mylanta Plus Xs) 15 ml PRN AFTMEALHC PRN PO DYSPEPSIA; Start 02/16/19 at 17:00 Magnesium Hydroxide (Milk Of Magnesia) 2,400 mg PRN QHS PRN PO CONSTIPATION; Start 02/16/19 at 17:00 Cyanocobalamin (Vitamin B-12) 1,000 mcg DAILY PO Last administered on 02/19/19at 09:05; Start 02/17/19 at 09:00; Stop 02/19/19 at 18:50; Status DC Acetaminophen/ Hydrocodone Bitart (Lortab 10/325) 1 tab PRN BID PRN PO PAIN Last administered on 02/18/19at 07:25; Start 02/16/19 at 17:45 Acetaminophen/ Hydrocodone Bitart (Lortab 10/325) 1 tab DAILY PRN PO PAIN; Start 02/16/19 at 17:45; Status UNV Methocarbamol (Robaxin) 750 mg BID PO Last administered on 02/27/19at 20:02; Start 02/16/19 at 21:00 Nystatin (Mycostatin) 1 iesha TID TP Last administered on 02/27/19 20:03; Start 02/16/19 at 21:00 Senna/Docusate Sodium (Senna Plus) 1 tab PRN BID PRN PO CONSTIPATION; Start 02/16/19 at 17:45 Tamsulosin HCl (Flomax) 0.4 mg DAILYWSUP PO Last administered on 02/27/19 17:00; Start 02/17/19 at 17:00 Acetaminophen (Tylenol) 500 mg PRN Q8HRS PRN PO PAIN / TEMP Last administered on 02/25/19 20:48; Start 02/16/19 at 18:00; Stop 02/26/19 at 00:30; Status DC Vitamin D (Vitamin D3) 5,000 unit DAILY PO Last administered on 02/27/19 08:45; Start 02/17/19 at 09:00 Folic Acid (Folic Acid) 1 mg DAILY PO Last administered on 02/27/19 08:43; Start 02/17/19 at 09:00 Naproxen (Naprosyn) 375 mg BID PO Last administered on 02/27/19 20:01; Start 02/16/19 at 21:00 Risperidone (RisperDAL) 0.25 mg DAILY SL Last administered on 02/19/19 09:06; Start 02/18/19 at 09:00; Stop 02/19/19 at 21:45; Status DC Sertraline HCl (Zoloft) 25 mg DAILY PO Last administered on 02/20/19 08:11; Start 02/18/19 at 09:00; Stop 02/20/19 at 09:01; Status DC Sertraline HCl (Zoloft) 50 mg DAILY PO Last administered on 02/27/19 08:45; Start 02/21/19 at 09:00 Rivastigmine (Exelon) 1 patch DAILY TD Last administered on 02/24/19 10:18; Start 02/18/19 at 09:00; Stop 02/24/19 at 09:01; Status DC Rivastigmine (Exelon) 1 patch DAILY TD Last administered on 02/27/19 08:45; Start 02/25/19 at 09:00 Risperidone (RisperDAL) 0.5 mg DAILY SL Last administered on 5/11/19at 08:16; Start 02/20/19 at 09:00; Stop 02/26/19 at 14:13; Status DC Acetaminophen (Tylenol) 500 mg Q8HRS PO Last administered on 02/27/19at 19:59; Start 02/26/19 at 09:00 Acetaminophen (Tylenol) 500 mg PRN Q8HRS PRN PO PAIN / TEMP; Start 02/26/19 at 00:30; Stop 02/26/19 at 12:25; Status DC Tbo-Filgrastim (Granix) 300 mcg QHS SQ Last administered on 02/27/19at 21:53; Start 02/27/19 at 21:00 Lorazepam (Ativan) 0.5 mg PRN Q6HRS PRN PO ANXIETY / AGITATION; Start 02/27/19 at 17:15 Active Scripts Active Reported Flomax (Tamsulosin Hcl) 0.4 Mg Cap.er.24h 1 Cap PO DAILYWSUP Folic Acid 1 Mg Tablet 1 Tab PO DAILY Vitamin B-12 (Cyanocobalamin (Vitamin B-12)) 1,000 Mcg Tablet 1 Tab PO DAILY Senna-S Tablet (Sennosides/Docusate Sodium) 1 Each Tablet 1 Each PO BID PRN Acetaminophen 500 Mg Tablet 1 Tab PO PRN Q8HRS PRN Vitamin D3 (Cholecalciferol (Vitamin D3)) 5,000 Unit Tablet 1 Tab PO DAILY Nystatin 15 Gm Oint...g. 1 Iesha TP TID Naproxen 375 Mg Tablet 1 Tab PO BID Robaxin (Methocarbamol) 500 Mg Tablet 750 Mg PO BID Hydrocodone-Apap 10-325 (Hydrocodone Bit/Acetaminophen) 1 Each Tablet 1 Tab PO DAILY PRN Hydrocodone-Apap 10-325 (Hydrocodone Bit/Acetaminophen) 1 Each Tablet 1 Tab PO BID PRN I have reviewed the current psychotropics carefully including drug interactions. Risk benefit ratio favors no change other than as noted in my dictated progress note. 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
--- NOTE | 2019-02-28 01:42 | PN ---
DATE: 02/27/2019 SUBJECTIVE: The patient was seen today, met with the staff, chart reviewed. The patient still has periods of agitation. The patient is able to walk with a walker. The patient has been receiving Ativan 0.5 mg q. 6 hours p.r.n. for severe anxiety and agitation. OBSERVATION: VITAL SIGNS: Temperature 98.4, blood pressure 136/69, pulse 85, respirations 18, O2 sat 94%. The patient's sleep and appetite have improved. MEDICATIONS: The patient's current medications include lorazepam 0.5 mg q. 6 hours p.r.n., rivastigmine patch daily, Zoloft 50 mg daily. The patient is not having any side effects to the medications. The patient's lab reviewed. The patient's white cell count is low at 1.8. The patient stated he had problems with low blood count including his platelet count. Apparently, he had a bone marrow biopsy several years ago. The patient's labs were abnormal. His RBC count was 2.2, hemoglobin 8.3, MCV 111, MCH 38, platelet count 70. The patient's BUN was 26, glucose level 102. The patient's TSH was 6.09. The patient has been followed up by Dr. Anderson. ASSESSMENT: 1. Major neurocognitive disorder, Alzheimer, vascular with delusions, depression, and behavioral disturbances. 2. Anxiety disorder, unspecified and impulse control disorder, unspecified. PLAN: Continue with the current treatment plan. LENGTH OF STAY: 7-10 days. LUCA FOREMAN MD DR: TIM/janae JOB#: [id number] / [id number]
[2019-02-28] MEDS: ACETAMINOPHEN 500 MG TABLET PO SCH ×3 (05:27→19:28)
[2019-02-28 05:54] VITALS: BP 144/74
[2019-02-28] MEDS: FOLIC ACID 1 MG TABLET PO SCH (09:08)
[2019-02-28] MEDS: NAPROXEN 375 MG TABLET PO SCH ×2 (09:10→19:28)
[2019-02-28] MEDS: METHOCARBAMOL 500 MG TABLET PO SCH ×2 (09:11→19:28)
[2019-02-28] MEDS: RIVASTIGMINE 9.5MG PATCH. TD SCH (09:12)
[2019-02-28] MEDS: SERTRALINE 50 MG TABLET. PO SCH (09:12)
[2019-02-28] MEDS: CHOLECALCIFEROL (VITAMIN D3) 1,000 UNIT TABLET PO SCH (09:12)
[2019-02-28] MEDS: NYSTATIN 100,000 UNIT/GM TOPICAL OINTMENT 15GM TUBE. TP SCH ×3 (09:14→19:32)
[2019-02-28 09:18] LABS: BASO # 0.2 x10^3/uL (0.0-0.2); BASO % 2 % (0-3); EOS % 1 % (0-3); HEMATOCRIT 23.9 % (39.0-53.0); HEMOGLOBIN 8.1 g/dL (13.0-17.5); LYMPH # 0.6 x10^3/uL (1.0-4.8); LYMPH % 7 % (24-48); MEAN CORPUSCULAR HEMOGLOBIN 38 pg (25-35); MEAN CORPUSCULAR HGB CONC 34 g/dL (31-37); MEAN CORPUSCULAR VOLUME 112 fL (79-100); MONO # 0.4 x10^3/uL (0.0-1.1); MONO % 5 % (0-9); NEUT # 7.1 x10^3uL (1.8-7.7); NEUT % 85 % (31-73); PLATELET COUNT 65 x10^3/uL (140-400); RED BLOOD COUNT 2.13 x10^6/uL (4.30-5.70); RED CELL DISTRIBUTION WIDTH 15.1 % (11.5-14.5); WHITE BLOOD COUNT 8.3 x10^3/uL (4.0-11.0)
[2019-02-28 09:34] LABS: ALBUMIN 3.5 g/dL (3.4-5.0); ALBUMIN/GLOBULIN RATIO 1.5 (1.0-1.7); CREATININE 0.8 mg/dL (0.7-1.3); GFR 91.4; POTASSIUM 3.6 mmol/L (3.5-5.1); TOTAL BILIRUBIN 0.8 mg/dL (0.2-1.0); TOTAL PROTEIN 5.9 g/dL (6.4-8.2)
[2019-02-28 10:24] LABS: % BANDS 16 % (0-9); % BASOS 1 % (0-3); % LYMPHS 5 % (24-48); % MONOS 3 % (0-10); % SEGS 75 % (35-66)
[2019-02-28 10:25] LABS: PLT ESTIMATE DECREASED (ADEQUATE)
[2019-02-28 10:26] LABS: ANISOCYTOSIS SLIGHT; POIKILOCYTOSIS SLIGHT; POLYCHROMASIA PRESENT
[2019-02-28 10:27] LABS: OVALOCYTES OCC
[2019-02-28 10:28] LABS: TOXIC GRANULATION PRESENT
[2019-02-28] MEDS: TAMSULOSIN 0.4 MG CAP.ER.24H. PO SCH (16:21)
[2019-02-28 16:32] VITALS: BP 126/63
[2019-03-01 05:37] VITALS: BP 132/68
[2019-03-01] MEDS: ACETAMINOPHEN 500 MG TABLET PO SCH ×3 (05:50→19:45)
[2019-03-01 07:44] LABS: BASO # 0.2 x10^3/uL (0.0-0.2); BASO % 2 % (0-3); EOS % 0 % (0-3); HEMATOCRIT 21.8 % (39.0-53.0); HEMOGLOBIN 7.6 g/dL (13.0-17.5); LYMPH # 0.6 x10^3/uL (1.0-4.8); LYMPH % 9 % (24-48); MEAN CORPUSCULAR HEMOGLOBIN 39 pg (25-35); MEAN CORPUSCULAR HGB CONC 35 g/dL (31-37); MEAN CORPUSCULAR VOLUME 112 fL (79-100); MONO # 0.3 x10^3/uL (0.0-1.1); MONO % 5 % (0-9); NEUT # 6.3 x10^3uL (1.8-7.7); NEUT % 84 % (31-73); PLATELET COUNT 60 x10^3/uL (140-400); RED BLOOD COUNT 1.96 x10^6/uL (4.30-5.70); WHITE BLOOD COUNT 7.4 x10^3/uL (4.0-11.0)
[2019-03-01] MEDS: NAPROXEN 375 MG TABLET PO SCH ×2 (08:00→19:43)
[2019-03-01] MEDS: FOLIC ACID 1 MG TABLET PO SCH (08:00)
[2019-03-01] MEDS: METHOCARBAMOL 500 MG TABLET PO SCH ×2 (08:01→19:43)
[2019-03-01] MEDS: SERTRALINE 50 MG TABLET. PO SCH (08:03)
[2019-03-01] MEDS: NYSTATIN 100,000 UNIT/GM TOPICAL OINTMENT 15GM TUBE. TP SCH ×3 (08:03→19:44)
[2019-03-01] MEDS: RIVASTIGMINE 9.5MG PATCH. TD SCH (08:03)
[2019-03-01] MEDS: CHOLECALCIFEROL (VITAMIN D3) 1,000 UNIT TABLET PO SCH (08:03)
--- NOTE | 2019-03-01 13:14 | PN ---
DATE: 02/28/2019 SUBJECTIVE: The patient was seen today, met with the staff, chart reviewed. The patient continues to be on Ativan 0.5 mg q.6 hours p.r.n. The patient denied of having any problems, wanted to know whether he could go back to the place that he came from. The patient is somewhat intrusive, demanding at times. The patient is minimizing the problem that brought him here. The patient has a tendency to get agitated easily. VITAL SIGNS: Temperature 97.4, blood pressure 144/74, pulse 65, respirations 20, O2 sat 97%. Slept about 9 hours last night. His appetite has improved. MEDICATIONS: The patient's current medications include lorazepam p.r.n., Zoloft 50 mg daily. The patient has abnormal lab values, mainly very low platelet count and WBC count. Discussed with Dr. Anderson about the lab results. ASSESSMENT: 1. Major neurocognitive disorder, Alzheimer's, vascular with delusions, depression, and behavioral disturbances. 2. Anxiety disorder, unspecified. 3. Impulse control disorder, unspecified. PLAN: To continue with the treatment. LENGTH OF STAY: 5 days. LUCA FOREMAN MD DR: TIM/janae JOB#: [id number] / [id number]
[2019-03-01 16:32] VITALS: BP 146/70
[2019-03-01] MEDS: TAMSULOSIN 0.4 MG CAP.ER.24H. PO SCH (17:15)
--- NOTE | 2019-03-02 04:35 | PN ---
DATE: 03/01/2019 SUBJECTIVE: The patient was seen today, met with the staff, chart reviewed. The patient continues to show improvement with his behavior. The patient tends to be intrusive at times and also demanding. The patient also lacks insight to his problems. He tends to get agitated easily. OBJECTIVE: VITAL SIGNS: Temperature 97.2, blood pressure 132/68, pulse 72, respirations 20, O2 sat 98%, slept about 8-1/2 hours last night. The patient is not presenting with any physical problems. CURRENT MEDICATIONS: No side effects to the medications. He is currently on lorazepam 0.5 mg q. 6 hours p.r.n., Exelon patch one daily, Zoloft 50 mg daily. ASSESSMENT: 1. Major neurocognitive disorder, Alzheimer's, vascular with delusions, depression and behavioral disturbances. 2. Anxiety disorder, unspecified. 3. Impulse control disorder, unspecified. PLAN: To continue with the treatment. LENGTH OF STAY: 4-5 days. LUCA FOREMAN MD DR: TIM/janae JOB#: [id number] / [id number]
[2019-03-02] MEDS: ACETAMINOPHEN 500 MG TABLET PO SCH ×3 (06:09→19:23)
[2019-03-02 06:19] VITALS: BP 125/66
[2019-03-02] MEDS: NAPROXEN 375 MG TABLET PO SCH ×2 (08:49→19:24)
[2019-03-02] MEDS: METHOCARBAMOL 500 MG TABLET PO SCH ×2 (08:50→19:24)
[2019-03-02] MEDS: SERTRALINE 50 MG TABLET. PO SCH (08:50)
[2019-03-02] MEDS: RIVASTIGMINE 9.5MG PATCH. TD SCH (08:51)
[2019-03-02] MEDS: FOLIC ACID 1 MG TABLET PO SCH (08:51)
[2019-03-02] MEDS: CHOLECALCIFEROL (VITAMIN D3) 1,000 UNIT TABLET PO SCH (08:51)
[2019-03-02] MEDS: NYSTATIN 100,000 UNIT/GM TOPICAL OINTMENT 15GM TUBE. TP SCH ×3 (08:53→19:24)
[2019-03-02 16:32] VITALS: BP 137/70
[2019-03-02] MEDS: TAMSULOSIN 0.4 MG CAP.ER.24H. PO SCH (17:20)
--- NOTE | 2019-03-03 04:02 | PN ---
DATE: 03/02/2019 SUBJECTIVE: The patient was seen today, met with the staff, chart reviewed. Staff reports some improvement with his behavior. He is less rigid, some improvement with his obsessive compulsive behaviors, still has some somatic complaints. The patient is participating in all the activities. OBSERVATION: VITAL SIGNS: Temperature 97.5, blood pressure 125/66, pulse 66, respirations 16, O2 sat 95%. Slept about 7 hours last night. The patient's appetite improved. MEDICATIONS: The patient's current medications include lorazepam 0.5 mg q. 6 hours p.r.n., Exelon patch 1 daily, Zoloft 50 mg daily. LABORATORY DATA: The patient's lab reviewed. The patient's WBC count significantly elevated on two readings on 02/28/2019 and 03/01/2019, but on 02/27/2019 the level was only 1.8. Prior to that, it was 1.9. ASSESSMENT: 1. Major neurocognitive disorder, Alzheimer's, vascular with delusions, depression and behavioral disturbances. 2. Anxiety disorder, unspecified. 3. Impulse control disorder, unspecified. PLAN: To continue with the treatment. The patient's cell count has improved since he was taken off all antipsychotic drugs. LENGTH OF STAY: 4-5 days. LUCA FOREMAN MD DR: TIM/janae JOB#: [id number] / [id number]
[2019-03-03] MEDS: ACETAMINOPHEN 500 MG TABLET PO SCH ×3 (05:44→20:54)
[2019-03-03 06:03] VITALS: BP 142/69
[2019-03-03] MEDS: HYDROcodone/APAP 10/325 1 TAB TABLET PO PRN (06:18)
[2019-03-03] MEDS: SERTRALINE 50 MG TABLET. PO SCH (08:06)
[2019-03-03] MEDS: RIVASTIGMINE 9.5MG PATCH. TD SCH (08:06)
[2019-03-03] MEDS: FOLIC ACID 1 MG TABLET PO SCH (08:06)
[2019-03-03] MEDS: CHOLECALCIFEROL (VITAMIN D3) 1,000 UNIT TABLET PO SCH (08:06)
[2019-03-03] MEDS: METHOCARBAMOL 500 MG TABLET PO SCH ×2 (08:08→20:54)
[2019-03-03] MEDS: NYSTATIN 100,000 UNIT/GM TOPICAL OINTMENT 15GM TUBE. TP SCH ×3 (08:08→20:54)
[2019-03-03] MEDS: NAPROXEN 375 MG TABLET PO SCH ×2 (08:08→20:54)
[2019-03-03 15:59] VITALS: BP 147/69
[2019-03-03] MEDS: TAMSULOSIN 0.4 MG CAP.ER.24H. PO SCH (17:44)
--- NOTE | 2019-03-04 03:31 | PN ---
DATE: 03/03/2019 SUBJECTIVE: The patient was seen today, met with the staff, chart reviewed. The patient denies of any major problems. The patient is currently on a wheelchair. The patient is not having any side effects to the medications, not having any major physical complaints. OBSERVATION: Vital signs: Temperature 98.1, blood pressure 142/69, pulse 72, respirations 18, O2 sat 98%. Slept about 8-9 hours last night. The patient's appetite improved. MEDICATIONS: The patient's current medications include lorazepam 0.5 mg q. 6 hours p.r.n., Exelon patch daily, and Zoloft 50 mg daily. ASSESSMENT: 1. Major neurocognitive disorder, Alzheimer's, vascular with delusions, depression, and behavioral disturbances. 2. Anxiety disorder, unspecified. 3. Impulse control disorder, unspecified. PLAN: To continue with the treatment. The patient is planned for discharge on 03/15/2019. LUCA FOREMAN MD DR: TIM/janae JOB#: [id number] / [id number]
[2019-03-04 06:13] VITALS: BP 162/51
[2019-03-04] MEDS: ACETAMINOPHEN 500 MG TABLET PO SCH ×3 (06:18→21:05)
[2019-03-04] MEDS: NYSTATIN 100,000 UNIT/GM TOPICAL OINTMENT 15GM TUBE. TP SCH (08:45)
[2019-03-04] MEDS: FOLIC ACID 1 MG TABLET PO SCH (08:46)
[2019-03-04] MEDS: SERTRALINE 50 MG TABLET. PO SCH (08:46)
[2019-03-04] MEDS: CHOLECALCIFEROL (VITAMIN D3) 1,000 UNIT TABLET PO SCH (08:46)
[2019-03-04] MEDS: RIVASTIGMINE 9.5MG PATCH. TD SCH (08:46)
[2019-03-04] MEDS: NAPROXEN 375 MG TABLET PO SCH ×2 (08:47→21:05)
[2019-03-04] MEDS: METHOCARBAMOL 500 MG TABLET PO SCH ×2 (08:47→21:04)
[2019-03-04] MEDS ORDERED: NYSTATIN 100,000 UNIT/GM TOPICAL OINTMENT 15GM TUBE. TP PRN (09:15)
[2019-03-04 15:50] VITALS: BP 168/89
[2019-03-04] MEDS: TAMSULOSIN 0.4 MG CAP.ER.24H. PO SCH (17:28)
--- NOTE | 2019-03-05 00:19 | PN ---
DATE: 03/04/2019 SUBJECTIVE: The patient was seen today. I met with the staff, chart reviewed. The patient continues to show improvement. The patient is on wheelchair. The patient has not had any falls. The patient is compliant with the treatment. OBSERVATION: VITAL SIGNS: Temperature 98.1, blood pressure 142/69, pulse 72, respiration 18, O2 sat 98%. Slept about 8-1/2 hours last night. The patient's appetite improved. MEDICATIONS: The patient's current medications include Exelon patch, Zoloft 50 mg daily, and lorazepam 0.5 mg q. 6 hours p.r.n. The patient is not having any side effects. The patient's lab reviewed. ASSESSMENT: 1. Major neurocognitive disorder, Alzheimer's, vascular with delusions, depression and behavioral disturbances. 2. Anxiety disorder, unspecified. 3. Impulse control disorder, unspecified. PLAN: Continue with the treatment. The patient is planned for discharge on 03/07/2019. LUCA FOREMAN MD DR: TIM/janae JOB#: [id number] / [id number]
[2019-03-05] MEDS ORDERED: LORA-254 PO (02:56)
[2019-03-05] MEDS ORDERED: MAGN2400 PO (02:57)
[2019-03-05] MEDS ORDERED: MAG30ORA2 PO (02:57)
[2019-03-05] MEDS ORDERED: METH29OI TP (02:58)
[2019-03-05] MEDS ORDERED: RIVA1PAT23 TD (03:02)
[2019-03-05] MEDS ORDERED: SENN1TAB62 PO (03:02)
[2019-03-05] MEDS ORDERED: SERT50TA PO (03:03)
[2019-03-05 05:53] VITALS: BP 145/82
[2019-03-05] MEDS: ACETAMINOPHEN 500 MG TABLET PO SCH ×3 (06:00→20:00)
[2019-03-05] MEDS: HYDROcodone/APAP 10/325 1 TAB TABLET PO PRN (06:08)
[2019-03-05] MEDS: FOLIC ACID 1 MG TABLET PO SCH (08:12)
[2019-03-05] MEDS: NAPROXEN 375 MG TABLET PO SCH ×2 (08:13→20:01)
[2019-03-05] MEDS: METHOCARBAMOL 500 MG TABLET PO SCH ×2 (08:13→20:01)
[2019-03-05] MEDS: SERTRALINE 50 MG TABLET. PO SCH (08:14)
[2019-03-05] MEDS: RIVASTIGMINE 9.5MG PATCH. TD SCH (08:14)
[2019-03-05] MEDS: CHOLECALCIFEROL (VITAMIN D3) 1,000 UNIT TABLET PO SCH (08:14)
[2019-03-05 15:45] VITALS: BP 174/83
[2019-03-05] MEDS: TAMSULOSIN 0.4 MG CAP.ER.24H. PO SCH (17:13)
[2019-03-06] MEDS: ACETAMINOPHEN 500 MG TABLET PO SCH ×3 (05:36→20:28)
[2019-03-06 06:22] VITALS: BP 149/72
[2019-03-06 07:32] LABS: BASO # 0.1 x10^3/uL (0.0-0.2); BASO % 6 % (0-3); EOS % 2 % (0-3); HEMATOCRIT 20.8 % (39.0-53.0); HEMOGLOBIN 7.3 g/dL (13.0-17.5); LYMPH # 0.5 x10^3/uL (1.0-4.8); LYMPH % 29 % (24-48); MEAN CORPUSCULAR HEMOGLOBIN 39 pg (25-35); MEAN CORPUSCULAR HGB CONC 35 g/dL (31-37); MEAN CORPUSCULAR VOLUME 112 fL (79-100); MONO # 0.2 x10^3/uL (0.0-1.1); MONO % 10 % (0-9); NEUT # 0.9 x10^3uL (1.8-7.7); NEUT % 52 % (31-73); PLATELET COUNT 49 x10^3/uL (140-400); RED BLOOD COUNT 1.87 x10^6/uL (4.30-5.70); RED CELL DISTRIBUTION WIDTH 15.6 % (11.5-14.5)
[2019-03-06 07:50] LABS: WHITE BLOOD COUNT 1.6 x10^3/uL (4.0-11.0)
[2019-03-06 07:51] LABS: ALBUMIN 3.3 g/dL (3.4-5.0); ALBUMIN/GLOBULIN RATIO 1.7 (1.0-1.7); CALCIUM 8.2 mg/dL (8.5-10.1); CREATININE 0.8 mg/dL (0.7-1.3); GFR 91.4; POTASSIUM 3.8 mmol/L (3.5-5.1); TOTAL BILIRUBIN 0.8 mg/dL (0.2-1.0); TOTAL PROTEIN 5.3 g/dL (6.4-8.2)
[2019-03-06] MEDS: FOLIC ACID 1 MG TABLET PO SCH (08:32)
[2019-03-06] MEDS: NAPROXEN 375 MG TABLET PO SCH ×2 (08:32→20:28)
[2019-03-06] MEDS: CHOLECALCIFEROL (VITAMIN D3) 1,000 UNIT TABLET PO SCH (08:33)
[2019-03-06] MEDS: METHOCARBAMOL 500 MG TABLET PO SCH ×2 (08:33→20:29)
[2019-03-06] MEDS: SERTRALINE 50 MG TABLET. PO SCH (08:33)
[2019-03-06] MEDS: RIVASTIGMINE 9.5MG PATCH. TD SCH (08:34)
[2019-03-06 09:07] LABS: % ATYL 1 % (0-0); % BANDS 5 % (0-9); % BASOS 1 % (0-3); % LYMPHS 40 % (24-48); % MONOS 7 % (0-10); % SEGS 46 % (35-66); NUCLEATED RBC 3
[2019-03-06 09:10] LABS: ANISOCYTOSIS SLIGHT; OVALOCYTES FEW; PLT ESTIMATE DECREASED (ADEQUATE); POLYCHROMASIA SLIGHT; TEAR DROP CELLS OCC; TOXIC GRANULATION PRESENT
[2019-03-06 16:13] VITALS: BP 137/66
[2019-03-06] MEDS: TAMSULOSIN 0.4 MG CAP.ER.24H. PO SCH (16:39)
[2019-03-06] MEDS ORDERED: TBO-FILGRASTIM 300 MCG/0.5 ML SYRINGE. SQ SCH (21:00)
[2019-03-07] MEDS: ACETAMINOPHEN 500 MG TABLET PO SCH ×3 (04:52→21:32)
[2019-03-07 06:10] VITALS: BP 134/68
[2019-03-07] MEDS ORDERED: TBO-300S SQ (07:50)
[2019-03-07] MEDS: FOLIC ACID 1 MG TABLET PO SCH (08:44)
[2019-03-07] MEDS: NAPROXEN 375 MG TABLET PO SCH ×2 (08:44→21:32)
[2019-03-07] MEDS: METHOCARBAMOL 500 MG TABLET PO SCH ×2 (08:44→21:32)
[2019-03-07] MEDS: CHOLECALCIFEROL (VITAMIN D3) 1,000 UNIT TABLET PO SCH (08:46)
[2019-03-07] MEDS: SERTRALINE 50 MG TABLET. PO SCH (08:47)
[2019-03-07] MEDS: HYDROcodone/APAP 10/325 1 TAB TABLET PO PRN (08:49)
[2019-03-07] MEDS: RIVASTIGMINE 9.5MG PATCH. TD SCH (08:49)
[2019-03-07 16:42] VITALS: BP 165/78
[2019-03-07] MEDS: TAMSULOSIN 0.4 MG CAP.ER.24H. PO SCH (17:32)
[2019-03-07 20:46] LABS: BASO # 0.2 x10^3/uL (0.0-0.2); BASO % 2 % (0-3); EOS % 0 % (0-3); HEMATOCRIT 23.2 % (39.0-53.0); LYMPH % 9 % (24-48); MEAN CORPUSCULAR HEMOGLOBIN 39 pg (25-35); MEAN CORPUSCULAR HGB CONC 35 g/dL (31-37); MEAN CORPUSCULAR VOLUME 113 fL (79-100); MONO # 0.4 x10^3/uL (0.0-1.1); MONO % 4 % (0-9); NEUT # 9.2 x10^3uL (1.8-7.7); NEUT % 85 % (31-73); PLATELET COUNT 61 x10^3/uL (140-400); RED BLOOD COUNT 2.05 x10^6/uL (4.30-5.70); RED CELL DISTRIBUTION WIDTH 16.4 % (11.5-14.5); WHITE BLOOD COUNT 10.9 x10^3/uL (4.0-11.0)
[2019-03-07 21:22] LABS: PLT ESTIMATE DECREASED (ADEQUATE)
[2019-03-07 21:25] LABS: ANISOCYTOSIS SLIGHT; OVALOCYTES OCC; POIKILOCYTOSIS SLIGHT; TOXIC GRANULATION PRESENT
[2019-03-07] MEDS: METHYL SALICYLATE/MENTHOL TOPICAL OINTMENT 29GM TUBE. TP PRN (22:34)
--- NOTE | 2019-03-07 23:29 | PDOC ---
Exam Note: Adam Note: Please also refer to the separate dictated note~for this date of service dictated separately.~Patient seen individually. Discussed the patient with Nursing staff reviewed the chart.~Reviewed interim history and current functioning. Reviewed vital signs,~Labs/ Radiology~and current medications noted below. Continue current treatment with the changes noted in the dictated addendum note Assessment: Vital Signs: Vital Signs Date Time Temp Pulse Resp B/P (MAP) Pulse Ox O2 Delivery O2 Flow Rate FiO2 03/07/19 16:42 98.1 73 18 165/78 (107) 97 03/06/19 06:22 Room Air I&O Intake and Output 03/07/19 06:59 Intake Total 1080 ml Balance 1080 ml Intake Oral 1080 ml # Bowel Movements 1 Labs: Laboratory Tests Test 03/07/19 20:35 White Blood Count 10.9 x10^3/uL (4.0-11.0) # Red Blood Count 2.05 x10^6/uL (4.30-5.70) L Hemoglobin 8.0 g/dL (13.0-17.5) L Hematocrit 23.2 % (39.0-53.0) L Mean Corpuscular Volume 113 fL (79-100) H Mean Corpuscular Hemoglobin 39 pg (25-35) H Mean Corpuscular Hemoglobin Concent 35 g/dL (31-37) Red Cell Distribution Width 16.4 % (11.5-14.5) H Platelet Count 61 x10^3/uL (140-400) L Neutrophils (%) (Auto) 85 % (31-73) H Lymphocytes (%) (Auto) 9 % (24-48) L Monocytes (%) (Auto) 4 % (0-9) Eosinophils (%) (Auto) 0 % (0-3) Basophils (%) (Auto) 2 % (0-3) Neutrophils # (Auto) 9.2 x10^3uL (1.8-7.7) H Lymphocytes # (Auto) 1.0 x10^3/uL (1.0-4.8) Monocytes # (Auto) 0.4 x10^3/uL (0.0-1.1) Eosinophils # (Auto) 0.0 x10^3/uL (0.0-0.7) Basophils # (Auto) 0.2 x10^3/uL (0.0-0.2) Toxic Granulation Present Platelet Estimate Decreased (ADEQUATE) Poikilocytosis Slight Anisocytosis Slight Ovalocytes Occ Current Medications: Meds: Current Medications Acetaminophen (Tylenol) 650 mg PRN Q6HRS PRN PO PAIN / TEMP; Start 02/16/19 at 17:00; Status Cancel Multi-Ingredient Ointment (Analgesic [place]) 1 iesha PRN QID PRN TP MUSCLE PAIN Last administered on 03/07/19at 22:34; Start 02/16/19 at 17:00 Al Hydroxide/Mg Hydroxide (Mylanta Plus Xs) 15 ml PRN AFTMEALHC PRN PO DYSPEPSIA; Start 02/16/19 at 17:00 Magnesium Hydroxide (Milk Of Magnesia) 2,400 mg PRN QHS PRN PO CONSTIPATION; Start 02/16/19 at 17:00 Cyanocobalamin (Vitamin B-12) 1,000 mcg DAILY PO Last administered on 02/19/19at 09:05; Start 02/17/19 at 09:00; Stop 02/19/19 at 18:50; Status DC Acetaminophen/ Hydrocodone Bitart (Lortab 10/325) 1 tab PRN BID PRN PO PAIN L ast administered on 03/07/19at 08:49; Start 02/16/19 at 17:45 Acetaminophen/ Hydrocodone Bitart (Lortab 10/325) 1 tab DAILY PRN PO PAIN; Start 02/16/19 at 17:45; Status UNV Methocarbamol (Robaxin) 750 mg BID PO Last administered on 03/07/19at 21:32; Start 02/16/19 at 21:00 Nystatin (Mycostatin) 1 iesha TID TP Last administered on 03/04/19at 08:45; Start 02/16/19 at 21:00; Stop 03/04/19 at 09:02; Status DC Senna/Docusate Sodium (Senna Plus) 1 tab PRN BID PRN PO CONSTIPATION; Start 02/16/19 at 17:45 Tamsulosin HCl (Flomax) 0.4 mg DAILYWSUP PO Last administered on 03/07/19at 17:32; Start 02/17/19 at 17:00 Acetaminophen (Tylenol) 500 mg PRN Q8HRS PRN PO PAIN / TEMP Last administered on 02/25/19 20:48; Start 02/16/19 at 18:00; Stop 02/26/19 at 00:30; Status DC Vitamin D (Vitamin D3) 5,000 unit DAILY PO Last administered on 03/07/19 08:46; Start 02/17/19 at 09:00 Folic Acid (Folic Acid) 1 mg DAILY PO Last administered on 03/07/19 08:44; Start 02/17/19 at 09:00 Naproxen (Naprosyn) 375 mg BID PO Last administered on 03/07/19 21:32; Start 02/16/19 at 21:00 Risperidone (RisperDAL) 0.25 mg DAILY SL Last administered on 02/19/19 09:06; Start 02/18/19 at 09:00; Stop 02/19/19 at 21:45; Status DC Sertraline HCl (Zoloft) 25 mg DAILY PO Last administered on 02/20/19 08:11; S tart 02/18/19 at 09:00; Stop 02/20/19 at 09:01; Status DC Sertraline HCl (Zoloft) 50 mg DAILY PO Last administered on 03/07/19 08:47; Start 02/21/19 at 09:00 Rivastigmine (Exelon) 1 patch DAILY TD Last administered on 02/24/19 10:18; Start 02/18/19 at 09:00; Stop 02/24/19 at 09:01; Status DC Rivastigmine (Exelon) 1 patch DAILY TD Last administered on 03/07/19 08:49; Start 02/25/19 at 09:00 Risperidone (RisperDAL) 0.5 mg DAILY SL Last administered on 02/26/19 08:16; Start 02/20/19 at 09:00; Stop 02/26/19 at 14:13; Status DC Acetaminophen (Tylenol) 500 mg Q8HRS PO Last administered on 03/07/19 21:32; Start 02/26/19 at 09:00 Acetaminophen (Tylenol) 500 mg PRN Q8HRS PRN PO PAIN / TEMP; Start 02/26/19 at 00:30; Stop 02/26/19 at 12:25; Status DC Tbo-Filgrastim (Granix) 300 mcg QHS SQ Last administered on 02/27/19at 21:53; Start 02/27/19 at 21:00; Stop 02/28/19 at 16:39; Status DC Lorazepam (Ativan) 0.5 mg PRN Q6HRS PRN PO ANXIETY / AGITATION; Start 02/27/19 at 17:15 Nystatin (Mycostatin) 1 iesha PRN TID PRN TP itchy area on r. inner buttock; Start 03/04/19 at 09:15 Tbo-Filgrastim (Granix) 300 mcg QHS SQ Last administered on 03/06/19at 20:29; Start 03/06/19 at 21:00; Stop 03/07/19 at 21:01; Status DC Active Scripts Active Reported Granix (Tbo-Filgrastim) 300 Mcg/0.5 Ml Syringe 300 Mcg SQ HS Zoloft (Sertraline Hcl) 50 Mg Tablet 50 Mg PO DAILY Senna Plus Tablet (Sennosides/Docusate Sodium) 1 Each Tablet 1 Each PO PRN BID PRN EXELON 9.5mg/24hr (Rivastigmine) 1 Each Patch.td24 1 Patch TD DAILY Analgesic [place] (Methyl Salicylate/Menthol) 28 Gm Oint...g. 1 Iesha TP PRN QID PRN Milk Of Magnesia (Magnesium Hydroxide) 2,400 Mg/10 Ml Oral.susp 2,400 Mg PO PRN QHS PRN Mag-Al Plus Xs Suspension (Mag Hydrox/Al Hydrox/Simeth) 30 Ml Oral.susp 15 Ml PO PRN AFTMEALHC PRN Ativan (Lorazepam) 1 Mg Tablet 0.5 Mg PO PRN Q6HRS PRN Flomax (Tamsulosin Hcl) 0.4 Mg Cap.er.24h 1 Cap PO DAILYWSUP Folic Acid 1 Mg Tablet 1 Mg PO DAILY Acetaminophen 500 Mg Tablet 500 Mg PO Q8HRS Vitamin D3 (Cholecalciferol (Vitamin D3)) 5,000 Unit Tablet 1 Tab PO DAILY Nystatin 15 Gm Oint...g. 1 Iesha TP PRN TID PRN Naproxen 375 Mg Tablet 375 Mg PO BID Robaxin (Methocarbamol) 500 Mg Tablet 750 Mg PO BID Hydrocodone-Apap 10-325 (Hydrocodone Bit/Acetaminophen) 1 Each Tablet 1 Tab PO BID PRN I have reviewed the current psychotropics carefully including drug interactions. Risk benefit ratio favors no change other than as noted in my dictated progress note. 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
[2019-03-08] MEDS: ACETAMINOPHEN 500 MG TABLET PO SCH ×3 (05:24→21:11)
[2019-03-08 06:30] VITALS: BP 143/76
[2019-03-08] MEDS: FOLIC ACID 1 MG TABLET PO SCH (07:54)
[2019-03-08] MEDS: METHOCARBAMOL 500 MG TABLET PO SCH ×2 (07:56→21:11)
[2019-03-08] MEDS: NAPROXEN 375 MG TABLET PO SCH ×2 (07:56→21:13)
[2019-03-08] MEDS: CHOLECALCIFEROL (VITAMIN D3) 1,000 UNIT TABLET PO SCH (07:57)
[2019-03-08] MEDS: SERTRALINE 50 MG TABLET. PO SCH (07:57)
[2019-03-08] MEDS: RIVASTIGMINE 9.5MG PATCH. TD SCH (07:58)
[2019-03-08] MEDS: HYDROcodone/APAP 10/325 1 TAB TABLET PO PRN (09:46)
[2019-03-08 16:19] VITALS: BP 135/68
[2019-03-08] MEDS: TAMSULOSIN 0.4 MG CAP.ER.24H. PO SCH (17:32)
--- NOTE | 2019-03-08 19:59 | PDOC ---
Exam Note: Adam Note: Admission Date: February 16, 2019 at 15:40 * A recertification for continued Inpatient Psychiatric Admission must be done on Day 12, Day 18 and Day 30. Please also refer to the separate dictated note~for this date of service dictated separately.~Patient seen individually. Discussed the patient with Nursing staff reviewed the chart.~Reviewed interim history and current functioning. Reviewed vital signs,~Labs/ Radiology~and current medications noted below. Continue current treatment with the changes noted in the dictated addendum note Assessment: Vital Signs: Vital Signs Date Time Temp Pulse Resp B/P (MAP) Pulse Ox O2 Delivery O2 Flow Rate FiO2 03/08/19 16:19 98.9 73 20 135/68 (90) 95 03/06/19 06:22 Room Air I&O Intake and Output0 03/08/19 07:00 Intake Total 720 ml Balance 720 ml Intake Oral 720 ml Labs: Laboratory Tests Test 03/07/19 20:35 White Blood Count 10.9 x10^3/uL (4.0-11.0) # Red Blood Count 2.05 x10^6/uL (4.30-5.70) L Hemoglobin 8.0 g/dL (13.0-17.5) L Hematocrit 23.2 % (39.0-53.0) L Mean Corpuscular Volume 113 fL (79-100) H Mean Corpuscular Hemoglobin 39 pg (25-35) H Mean Corpuscular Hemoglobin Concent 35 g/dL (31-37) Red Cell Distribution Width 16.4 % (11.5-14.5) H Platelet Count 61 x10^3/uL (140-400) L Neutrophils (%) (Auto) 85 % (31-73) H Lymphocytes (%) (Auto) 9 % (24-48) L Monocytes (%) (Auto) 4 % (0-9) Eosinophils (%) (Auto) 0 % (0-3) Basophils (%) (Auto) 2 % (0-3) Neutrophils # (Auto) 9.2 x10^3uL (1.8-7.7) H Lymphocytes # (Auto) 1.0 x10^3/uL (1.0-4.8) Monocytes # (Auto) 0.4 x10^3/uL (0.0-1.1) Eosinophils # (Auto) 0.0 x10^3/uL (0.0-0.7) Basophils # (Auto) 0.2 x10^3/uL (0.0-0.2) Toxic Granulation Present Platelet Estimate Decreased (ADEQUATE) Poikilocytosis Slight Anisocytosis Slight Ovalocytes Occ Current Medications: Meds: Current Medications Acetaminophen (Tylenol) 650 mg PRN Q6HRS PRN PO PAIN / TEMP; Start 02/16/19 at 17:00; Status Cancel Multi-Ingredient Ointment (Analgesic [place]) 1 iesha PRN QID PRN TP MUSCLE PAIN Last administered on 03/07/19at 22:34; Start 02/16/19 at 17:00 Al Hydroxide/Mg Hydroxide (Mylanta Plus Xs) 15 ml PRN AFTMEALHC PRN PO DYSPEPSIA; Start 02/16/19 at 17:00 Magnesium Hydroxide (Milk Of Magnesia) 2,400 mg PRN QHS PRN PO CONSTIPATION; Start 02/16/19 at 17:00 Cyanocobalamin (Vitamin B-12) 1,000 mcg DAILY PO Last administered on 02/19/19at 09:05; Start 02/17/19 at 09:00; Stop 02/19/19 at 18:50; Status DC Acetaminophen/ Hydrocodone Bitart (Lortab 10/325) 1 tab PRN BID PRN PO PAIN Last administered on 03/08/19at 09:46; Start 02/16/19 at 17:45 Acetaminophen/ Hydrocodone Bitart (Lortab 10/325) 1 tab DAILY PRN PO PAIN; Start 02/16/19 at 17:45; Status UNV Methocarbamol (Robaxin) 750 mg BID PO Last administered on 03/08/19at 07:56; Start 02/16/19 at 21:00 Nystatin (Mycostatin) 1 iesha TID TP Last administered on 03/04/19at 08:45; Start 02/16/19 at 21:00; Stop 03/04/19 at 09:02; Status DC Senna/Docusate Sodium (Senna Plus) 1 tab PRN BID PRN PO CONSTIPATION; Start 02/16/19 at 17:45 Tamsulosin HCl (Flomax) 0.4 mg DAILYWSUP PO Last administered on 03/08/19at 17:32; Start 02/17/19 at 17:00 Acetaminophen (Tylenol) 500 mg PRN Q8HRS PRN PO PAIN / TEMP Last administered on 02/25/19 20:48; Start 02/16/19 at 18:00; Stop 02/26/19 at 00:30; Status DC Vitamin D (Vitamin D3) 5,000 unit DAILY PO Last administered on 03/08/19 07:57; Start 02/17/19 at 09:00 Folic Acid (Folic Acid) 1 mg DAILY PO Last administered on 03/08/19 07:54; Start 02/17/19 at 09:00 Naproxen (Naprosyn) 375 mg BID PO Last administered on 03/08/19 07:56; Start 02/16/19 at 21:00 Risperidone (RisperDAL) 0.25 mg DAILY SL Last administered on 02/19/19 09:06; Start 02/18/19 at 09:00; Stop 02/19/19 at 21:45; Status DC Sertraline HCl (Zoloft) 25 mg DAILY PO Last administered on 02/20/19 08:11; Start 02/18/19 at 09:00; Stop 02/20/19 at 09:01; Status DC Sertraline HCl (Zoloft) 50 mg DAILY PO Last administered on 03/08/19 07:57; Start 02/21/19 at 09:00 Rivastigmine (Exelon) 1 patch DAILY TD Last administered on 02/24/19 10:18; Start 02/18/19 at 09:00; Stop 02/24/19 at 09:01; Status DC Rivastigmine (Exelon) 1 patch DAILY TD Last administered on 03/08/19 07:58; Start 02/25/19 at 09:00 Risperidone (RisperDAL) 0.5 mg DAILY SL Last administered on 02/26/19 08:16; Start 02/20/19 at 09:00; Stop 02/26/19 at 14:13; Status DC Acetaminophen (Tylenol) 500 mg Q8HRS PO Last administered on 03/08/19 13:20; Start 02/26/19 at 09:00 Acetaminophen (Tylenol) 500 mg PRN Q8HRS PRN PO PAIN / TEMP; Start 02/26/19 at 00:30; Stop 02/26/19 at 12:25; Status DC Tbo-Filgrastim (Granix) 300 mcg QHS SQ Last administered on 02/27/19at 21:53; Start 02/27/19 at 21:00; Stop 02/28/19 at 16:39; Status DC Lorazepam (Ativan) 0.5 mg PRN Q6HRS PRN PO ANXIETY / AGITATION; Start 02/27/19 at 17:15 Nystatin (Mycostatin) 1 iesha PRN TID PRN TP itchy area on r. inner buttock; Start 03/04/19 at 09:15 Tbo-Filgrastim (Granix) 300 mcg QHS SQ Last administered on 03/06/19at 20:29; Start 03/06/19 at 21:00; Stop 03/07/19 at 21:01; Status DC Active Scripts Active Reported Zoloft (Sertraline Hcl) 50 Mg Tablet 50 Mg PO DAILY Senna Plus Tablet (Sennosides/Docusate Sodium) 1 Each Tablet 1 Each PO PRN BID PRN EXELON 9.5mg/24hr (Rivastigmine) 1 Each Patch.td24 1 Patch TD DAILY Analgesic [place] (Methyl Salicylate/Menthol) 28 Gm Oint...g. 1 Iesha TP PRN QID PRN Milk Of Magnesia (Magnesium Hydroxide) 2,400 Mg/10 Ml Oral.susp 2,400 Mg PO PRN QHS PRN Mag-Al Plus Xs Suspension (Mag Hydrox/Al Hydrox/Simeth) 30 Ml Oral.susp 15 Ml PO PRN AFTMEALHC PRN Ativan (Lorazepam) 1 Mg Tablet 0.5 Mg PO PRN Q6HRS PRN Flomax (Tamsulosin Hcl) 0.4 Mg Cap.er.24h 1 Cap PO DAILYWSUP Folic Acid 1 Mg Tablet 1 Mg PO DAILY Acetaminophen 500 Mg Tablet 500 Mg PO Q8HRS Vitamin D3 (Cholecalciferol (Vitamin D3)) 5,000 Unit Tablet 1 Tab PO DAILY Nystatin 15 Gm Oint...g. 1 Iesha TP PRN TID PRN Naproxen 375 Mg Tablet 375 Mg PO BID Robaxin (Methocarbamol) 500 Mg Tablet 750 Mg PO BID Hydrocodone-Apap 10-325 (Hydrocodone Bit/Acetaminophen) 1 Each Tablet 1 Tab PO BID PRN I have reviewed the current psychotropics carefully including drug interactions. Risk benefit ratio favors no change other than as noted in my dictated progress note. 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
--- NOTE | 2019-03-08 21:11 | PN ---
DATE: 03/07/2019 PSYCHIATRIC PROGRESS NOTE This late entry 03/07/2019 covers elements not covered in my initial note. SUBJECTIVE: I met with the patient on the morning of 03/07/2019. The patient slept 8 hours previous night. Plan was for him to transition to [facility], but they are unable to accept him. His partly due to his myelodysplastic syndrome, but there is a consideration that Risperdal could be worsening this and this since been discontinued. He remains somewhat paranoid, less so than before. REVIEW OF SYSTEMS: Ambulation impaired, with walker. No CV, , pulmonary, eye, ENT system symptoms on review. Reliability varies. MENTAL STATUS EXAM: Oriented to himself and situation. Speech has some latency, coherent. Abstraction fair, computation impaired, language function intact, attention span short. He remains somewhat paranoid, but much less so than before, less depressed, less obsessive. LABORATORY DATA: Reviewed. IMPRESSION: Major depressive disorder, recurrent with psychotic features, in partial remission; major neurocognitive disorder, early Alzheimer, vascular with delusion, depression; anxiety disorder, unspecified; impulse control disorder, unspecified. PLAN: Maintain Zoloft 50 mg a day, Exelon patch 9.5 mg a day, Ativan p.r.n., Risperdal has been stopped. We will reassess if he becomes psychotic. MAN Vikram ONOFRE MD DR: NEO/janae JOB#: [id number] / [id number]
[2019-03-09] MEDS: ACETAMINOPHEN 500 MG TABLET PO SCH ×3 (06:05→19:46)
[2019-03-09 06:22] VITALS: BP 126/68
[2019-03-09] MEDS: NAPROXEN 375 MG TABLET PO SCH ×2 (08:03→19:46)
[2019-03-09] MEDS: FOLIC ACID 1 MG TABLET PO SCH (08:04)
[2019-03-09] MEDS: CHOLECALCIFEROL (VITAMIN D3) 1,000 UNIT TABLET PO SCH (08:04)
[2019-03-09] MEDS: SERTRALINE 50 MG TABLET. PO SCH (08:04)
[2019-03-09] MEDS: METHOCARBAMOL 500 MG TABLET PO SCH ×2 (08:04→19:46)
[2019-03-09] MEDS: RIVASTIGMINE 9.5MG PATCH. TD SCH (08:05)
[2019-03-09] MEDS: HYDROcodone/APAP 10/325 1 TAB TABLET PO PRN (09:13)
[2019-03-09 16:09] VITALS: BP 165/78
[2019-03-09] MEDS: TAMSULOSIN 0.4 MG CAP.ER.24H. PO SCH (17:05)
--- NOTE | 2019-03-09 21:06 | PN ---
DATE: 03/08/2019 PSYCHIATRIC PROGRESS NOTE This late entry 03/08/2019 covers elements not covered in my initial note. SUBJECTIVE: I met with the patient in the evening. The patient slept reasonably previous night. He remains a little anxious, paranoid. REVIEW OF SYSTEMS: Ambulation impaired. No CV, , pulmonary, eye system symptoms on review. MENTAL STATUS EXAM: Oriented to himself and situation. Speech coherent, rapid at times, talked at length to me about wanting to get back to independent living at [place]. Abstraction fair, computation impaired, language function intact, attention span short. Mood and affect somewhat anxious, labile. LABORATORY DATA: Reviewed. IMPRESSION: Unchanged from initial note. PLAN: No change from initial note. MAN Vikram ONOFRE MD DR: NEO/janae JOB#: [id number] / [id number]
--- NOTE | 2019-03-09 22:05 | PDOC ---
Exam Note: Adam Note: Please also refer to the separate dictated note~for this date of service dictated separately.~Patient seen individually. Discussed the patient with Nursing staff reviewed the chart.~Reviewed interim history and current functioning. Reviewed vital signs,~Labs/ Radiology~and current medications noted below. Continue current treatment with the changes noted in the dictated addendum note Assessment: Vital Signs: Vital Signs Date Time Temp Pulse Resp B/P (MAP) Pulse Ox O2 Delivery O2 Flow Rate FiO2 03/09/19 16:09 97.6 72 16 165/78 (107) 97 03/06/19 06:22 Room Air I&O Intake and Output 03/09/19 07:00 Intake Total 1680 ml Balance 1680 ml Intake Oral 1680 ml Current Medications: Meds: Current Medications Acetaminophen (Tylenol) 650 mg PRN Q6HRS PRN PO PAIN / TEMP; Start 02/16/19 at 17:00; Status Cancel Multi-Ingredient Ointment (Analgesic [place]) 1 iesha PRN QID PRN TP MUSCLE PAIN Last administered on 03/07/19at 22:34; Start 02/16/19 at 17:00 Al Hydroxide/Mg Hydroxide (Mylanta Plus Xs) 15 ml PRN AFTMEALHC PRN PO DYSPEPSIA; Start 02/16/19 at 17:00 Magnesium Hydroxide (Milk Of Magnesia) 2,400 mg PRN QHS PRN PO CONSTIPATION; Start 02/16/19 at 17:00 Cyanocobalamin (Vitamin B-12) 1,000 mcg DAILY PO Last administered on 02/19/19at 09:05; Start 02/17/19 at 09:00; Stop 02/19/19 at 18:50; Status DC Acetaminophen/ Hydrocodone Bitart (Lortab 10/325) 1 tab PRN BID PRN PO PAIN Last administered on 03/09/19at 09:13; Start 02/16/19 at 17:45 Acetaminophen/ Hydrocodone Bitart (Lortab 10/325) 1 tab DAILY PRN PO PAIN; Start 02/16/19 at 17:45; Status UNV Methocarbamol (Robaxin) 750 mg BID PO Last administered on 03/09/19at 19:46; Start 02/16/19 at 21:00 Nystatin (Mycostatin) 1 iesha TID TP Last administered on 5/17/19at 08:45; Start 02/16/19 at 21:00; Stop 03/04/19 at 09:02; Status DC Senna/Docusate Sodium (Senna Plus) 1 tab PRN BID PRN PO CONSTIPATION; Start 02/16/19 at 17:45 Tamsulosin HCl (Flomax) 0.4 mg DAILYWSUP PO Last administered on 03/09/19at 17:05; Start 02/17/19 at 17:00 Acetaminophen (Tylenol) 500 mg PRN Q8HRS PRN PO PAIN / TEMP Last administered on 02/25/19 20:48; Start 02/16/19 at 18:00; Stop 02/26/19 at 00:30; Status DC Vitamin D (Vitamin D3) 5,000 unit DAILY PO Last administered on 03/09/19 08:04; Start 02/17/19 at 09:00 Folic Acid (Folic Acid) 1 mg DAILY PO Last administered on 03/09/19 08:04; Start 02/17/19 at 09:00 Naproxen (Naprosyn) 375 mg BID PO Last administered on 03/09/19 19:46; Start 02/16/19 at 21:00 Risperidone (RisperDAL) 0.25 mg DAILY SL Last administered on 02/19/19 09:06; Start 02/18/19 at 09:00; Stop 02/19/19 at 21:45; Status DC Sertraline HCl (Zoloft) 25 mg DAILY PO Last administered on 02/20/19 08:11; Start 02/18/19 at 09:00; Stop 02/20/19 at 09:01; Status DC Sertraline HCl (Zoloft) 50 mg DAILY PO Last administered on 03/09/19 08:04; Start 02/21/19 at 09:00 Rivastigmine (Exelon) 1 patch DAILY TD Last administered on 02/24/19 10:18; Start 02/18/19 at 09:00; Stop 02/24/19 at 09:01; Status DC Rivastigmine (Exelon) 1 patch DAILY TD Last administered on 03/09/19 08:05; Start 02/25/19 at 09:00 Risperidone (RisperDAL) 0.5 mg DAILY SL Last administered on 5/11/19at 08:16; Start 02/20/19 at 09:00; Stop 02/26/19 at 14:13; Status DC Acetaminophen (Tylenol) 500 mg Q8HRS PO Last administered on 03/09/19at 19:46; Start 02/26/19 at 09:00 Acetaminophen (Tylenol) 500 mg PRN Q8HRS PRN PO PAIN / TEMP; Start 02/26/19 at 00:30; Stop 02/26/19 at 12:25; Status DC Tbo-Filgrastim (Granix) 300 mcg QHS SQ Last administered on 02/27/19at 21:53; Start 02/27/19 at 21:00; Stop 02/28/19 at 16:39; Status DC Lorazepam (Ativan) 0.5 mg PRN Q6HRS PRN PO ANXIETY / AGITATION; Start 02/27/19 at 17:15 Nystatin (Mycostatin) 1 iesha PRN TID PRN TP itchy area on r. inner buttock; Start 03/04/19 at 09:15 Tbo-Filgrastim (Granix) 300 mcg QHS SQ Last administered on 03/06/19at 20:29; Start 03/06/19 at 21:00; Stop 03/07/19 at 21:01; Status DC Active Scripts Active Reported Zoloft (Sertraline Hcl) 50 Mg Tablet 50 Mg PO DAILY Senna Plus Tablet (Sennosides/Docusate Sodium) 1 Each Tablet 1 Each PO PRN BID PRN EXELON 9.5mg/24hr (Rivastigmine) 1 Each Patch.td24 1 Patch TD DAILY Analgesic [place] (Methyl Salicylate/Menthol) 28 Gm Oint...g. 1 Iesha TP PRN QID PRN Milk Of Magnesia (Magnesium Hydroxide) 2,400 Mg/10 Ml Oral.susp 2,400 Mg PO PRN QHS PRN Mag-Al Plus Xs Suspension (Mag Hydrox/Al Hydrox/Simeth) 30 Ml Oral.susp 15 Ml PO PRN AFTMEALHC PRN Ativan (Lorazepam) 1 Mg Tablet 0.5 Mg PO PRN Q6HRS PRN Flomax (Tamsulosin Hcl) 0.4 Mg Cap.er.24h 1 Cap PO DAILYWSUP Folic Acid 1 Mg Tablet 1 Mg PO DAILY Acetaminophen 500 Mg Tablet 500 Mg PO Q8HRS Vitamin D3 (Cholecalciferol (Vitamin D3)) 5,000 Unit Tablet 1 Tab PO DAILY Nystatin 15 Gm Oint...g. 1 Iesha TP PRN TID PRN Naproxen 375 Mg Tablet 375 Mg PO BID Robaxin (Methocarbamol) 500 Mg Tablet 750 Mg PO BID Hydrocodone-Apap 10-325 (Hydrocodone Bit/Acetaminophen) 1 Each Tablet 1 Tab PO BID PRN I have reviewed the current psychotropics carefully including drug interactions. Risk benefit ratio favors no change other than as noted in my dictated progress note. 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
[2019-03-10] MEDS: ACETAMINOPHEN 500 MG TABLET PO SCH ×3 (05:43→20:56)
[2019-03-10 05:49] VITALS: BP 150/71
[2019-03-10] MEDS: FOLIC ACID 1 MG TABLET PO SCH (08:12)
[2019-03-10] MEDS: RIVASTIGMINE 9.5MG PATCH. TD SCH (08:13)
[2019-03-10] MEDS: SERTRALINE 50 MG TABLET. PO SCH (08:13)
[2019-03-10] MEDS: CHOLECALCIFEROL (VITAMIN D3) 1,000 UNIT TABLET PO SCH (08:13)
[2019-03-10] MEDS: METHOCARBAMOL 500 MG TABLET PO SCH ×2 (08:17→20:57)
[2019-03-10] MEDS: NAPROXEN 375 MG TABLET PO SCH ×2 (08:17→20:56)
[2019-03-10] MEDS: HYDROcodone/APAP 10/325 1 TAB TABLET PO PRN (09:20)
[2019-03-10 15:38] VITALS: BP 131/78
[2019-03-10] MEDS: TAMSULOSIN 0.4 MG CAP.ER.24H. PO SCH (17:40)
--- NOTE | 2019-03-10 22:30 | PDOC ---
Exam Note: Adam Note: Please also refer to the separate dictated note~for this date of service dictated separately.~Patient seen individually. Discussed the patient with Nursing staff reviewed the chart.~Reviewed interim history and current functioning. Reviewed vital signs,~Labs/ Radiology~and current medications noted below. Continue current treatment with the changes noted in the dictated addendum note Assessment: Vital Signs: Vital Signs Date Time Temp Pulse Resp B/P (MAP) Pulse Ox O2 Delivery O2 Flow Rate FiO2 03/10/19 15:38 98.7 64 16 131/78 (95) 97 03/06/19 06:22 Room Air I&O Intake and Output 03/10/19 06:59 Intake Total 1200 ml Balance 1200 ml Intake Oral 1200 ml # Voids 1 Current Medications: Meds: Current Medications Acetaminophen (Tylenol) 650 mg PRN Q6HRS PRN PO PAIN / TEMP; Start 02/16/19 at 17:00; Status Cancel Multi-Ingredient Ointment (Analgesic [place]) 1 iesha PRN QID PRN TP MUSCLE PAIN Last administered on 03/07/19at 22:34; Start 02/16/19 at 17:00 Al Hydroxide/Mg Hydroxide (Mylanta Plus Xs) 15 ml PRN AFTMEALHC PRN PO DYSPEPS [place]; Start 02/16/19 at 17:00 Magnesium Hydroxide (Milk Of Magnesia) 2,400 mg PRN QHS PRN PO CONSTIPATION; Start 02/16/19 at 17:00 Cyanocobalamin (Vitamin B-12) 1,000 mcg DAILY PO Last administered on 02/19/19at 09:05; Start 02/17/19 at 09:00; Stop 02/19/19 at 18:50; Status DC Acetaminophen/ Hydrocodone Bitart (Lortab 10/325) 1 tab PRN BID PRN PO PAIN Last administered on 03/10/19at 09:20; Start 02/16/19 at 17:45 Acetaminophen/ Hydrocodone Bitart (Lortab 10/325) 1 tab DAILY PRN PO PAIN; Start 02/16/19 at 17:45; Status UNV Methocarbamol (Robaxin) 750 mg BID PO Last administered on 03/10/19at 20:57; Start 02/16/19 at 21:00 Nystatin (Mycostatin) 1 iesha TID TP Last administered on 03/04/19 08:45; Start 02/16/19 at 21:00; Stop 03/04/19 at 09:02; Status DC Senna/Docusate Sodium (Senna Plus) 1 tab PRN BID PRN PO CONSTIPATION; Start 02/16/19 at 17:45 Tamsulosin HCl (Flomax) 0.4 mg DAILYWSUP PO Last administered on 03/10/19 17:40; Start 02/17/19 at 17:00 Acetaminophen (Tylenol) 500 mg PRN Q8HRS PRN PO PAIN / TEMP Last administered on 02/25/19 20:48; Start 02/16/19 at 18:00; Stop 02/26/19 at 00:30; Status DC Vitamin D (Vitamin D3) 5,000 unit DAILY PO Last administered on 03/10/19 08:13; Start 02/17/19 at 09:00 Folic Acid (Folic Acid) 1 mg DAILY PO Last administered on 03/10/19 08:12; Start 02/17/19 at 09:00 Naproxen (Naprosyn) 375 mg BID PO Last administered on 03/10/19 20:56; Start 02/16/19 at 21:00 Risperidone (RisperDAL) 0.25 mg DAILY SL Last administered on 02/19/19 09:06; Start 02/18/19 at 09:00; Stop 02/19/19 at 21:45; Status DC Sertraline HCl (Zoloft) 25 mg DAILY PO Last administered on 02/20/19 08:11; Start 02/18/19 at 09:00; Stop 02/20/19 at 09:01; Status DC Sertraline HCl (Zoloft) 50 mg DAILY PO Last administered on 03/10/19 08:13; Start 02/21/19 at 09:00 Rivastigmine (Exelon) 1 patch DAILY TD Last administered on 02/24/19 10:18; Start 02/18/19 at 09:00; Stop 02/24/19 at 09:01; Status DC Rivastigmine (Exelon) 1 patch DAILY TD Last administered on 03/10/19 08:13; Start 02/25/19 at 09:00 Risperidone (RisperDAL) 0.5 mg DAILY SL Last administered on 5/11/19at 08:16; Start 02/20/19 at 09:00; Stop 02/26/19 at 14:13; Status DC Acetaminophen (Tylenol) 500 mg Q8HRS PO Last administered on 03/10/19at 20:56; Start 02/26/19 at 09:00 Acetaminophen (Tylenol) 500 mg PRN Q8HRS PRN PO PAIN / TEMP; Start 02/26/19 at 00:30; Stop 02/26/19 at 12:25; Status DC Tbo-Filgrastim (Granix) 300 mcg QHS SQ Last administered on 02/27/19at 21:53; Start 02/27/19 at 21:00; Stop 02/28/19 at 16:39; Status DC Lorazepam (Ativan) 0.5 mg PRN Q6HRS PRN PO ANXIETY / AGITATION; Start 02/27/19 at 17:15 Nystatin (Mycostatin) 1 iesha PRN TID PRN TP itchy area on r. inner buttock; Start 03/04/19 at 09:15 Tbo-Filgrastim (Granix) 300 mcg QHS SQ Last administered on 03/06/19at 20:29; Start 03/06/19 at 21:00; Stop 03/07/19 at 21:01; Status DC Risperidone (RisperDAL) 0.5 mg DAILY PO ; Start 03/11/19 at 09:00 Active Scripts Active Reported Zoloft (Sertraline Hcl) 50 Mg Tablet 50 Mg PO DAILY Senna Plus Tablet (Sennosides/Docusate Sodium) 1 Each Tablet 1 Each PO PRN BID PRN EXELON 9.5mg/24hr (Rivastigmine) 1 Each Patch.td24 1 Patch TD DAILY Analgesic [place] (Methyl Salicylate/Menthol) 28 Gm Oint...g. 1 Iesha TP PRN QID PRN Milk Of Magnesia (Magnesium Hydroxide) 2,400 Mg/10 Ml Oral.susp 2,400 Mg PO PRN QHS PRN Mag-Al Plus Xs Suspension (Mag Hydrox/Al Hydrox/Simeth) 30 Ml Oral.susp 15 Ml PO PRN AFTMEALHC PRN Ativan (Lorazepam) 1 Mg Tablet 0.5 Mg PO PRN Q6HRS PRN Flomax (Tamsulosin Hcl) 0.4 Mg Cap.er.24h 1 Cap PO DAILYWSUP Folic Acid 1 Mg Tablet 1 Mg PO DAILY Acetaminophen 500 Mg Tablet 500 Mg PO Q8HRS Vitamin D3 (Cholecalciferol (Vitamin D3)) 5,000 Unit Tablet 1 Tab PO DAILY Nystatin 15 Gm Oint...g. 1 Iesha TP PRN TID PRN Naproxen 375 Mg Tablet 375 Mg PO BID Robaxin (Methocarbamol) 500 Mg Tablet 750 Mg PO BID Hydrocodone-Apap 10-325 (Hydrocodone Bit/Acetaminophen) 1 Each Tablet 1 Tab PO BID PRN I have reviewed the current psychotropics carefully including drug interactions. Risk benefit ratio favors no change other than as noted in my dictated progress note. Diagnosis: Problems: (1) Anxiety disorder (2) Dementia in Alzheimer's disease with delusions (3) Dementia in Alzheimer's disease with depression (4) Dementia, vascular, with delusions (5) Dementia, vascular, with depression (6) Impulse control disorder (7) Psychosis, atypical (8) Major depressive disorder, recurrent episode YOLI ONOFRE MD March 10, 2019 22:30
[2019-03-11] MEDS: ACETAMINOPHEN 500 MG TABLET PO SCH ×4 (05:21→19:51)
[2019-03-11] MEDS: HYDROcodone/APAP 10/325 1 TAB TABLET PO PRN (05:23)
[2019-03-11 05:47] VITALS: BP 171/79
[2019-03-11 07:04] LABS: HEMATOCRIT 20.6 % (39.0-53.0); HEMOGLOBIN 7.1 g/dL (13.0-17.5); RED BLOOD COUNT 1.82 x10^6/uL (4.30-5.70); RED CELL DISTRIBUTION WIDTH 16.6 % (11.5-14.5)
[2019-03-11 07:09] LABS: WHITE BLOOD COUNT 1.6 x10^3/uL (4.0-11.0)
[2019-03-11] MEDS: FOLIC ACID 1 MG TABLET PO SCH (08:51)
[2019-03-11] MEDS: NAPROXEN 375 MG TABLET PO SCH ×2 (08:51→19:52)
[2019-03-11] MEDS: CHOLECALCIFEROL (VITAMIN D3) 1,000 UNIT TABLET PO SCH (08:51)
[2019-03-11] MEDS: METHOCARBAMOL 500 MG TABLET PO SCH ×2 (08:51→19:51)
[2019-03-11] MEDS: SERTRALINE 50 MG TABLET. PO SCH (08:52)
[2019-03-11] MEDS: RIVASTIGMINE 9.5MG PATCH. TD SCH (08:53)
[2019-03-11] MEDS: risperiDONE 0.5 MG TABLET. PO SCH (08:56)
[2019-03-11] MEDS ORDERED: TBO-FILGRASTIM 300 MCG/0.5 ML SYRINGE. SQ SCH ×2 (09:00→21:00)
[2019-03-11 16:00] VITALS: BP 155/69
[2019-03-11] MEDS: TAMSULOSIN 0.4 MG CAP.ER.24H. PO SCH (17:08)
--- NOTE | 2019-03-11 18:58 | PN ---
DATE: 03/09/2019 PSYCHIATRIC PROGRESS NOTE This is a late entry 03/09/2019, covers elements not covered in my initial note. SUBJECTIVE: I met with the patient in the evening in his room at length. He slept 6 hours previous night. He appears more anxious, paranoid, suspicious, why he has not been discharged and upset that assisted living and independent living are unable to accept him. I addressed this at length with hm. REVIEW OF SYSTEMS: Ambulation impaired with walker. No CV, , pulmonary, eye system symptoms on review. MENTAL STATUS EXAM: Oriented to himself and situation. Speech coherent, at times rapid, abstraction fair, computation impaired, language function intact, attention span short. Mood and affect somewhat anxious, labile. LABORATORY DATA: Reviewed. IMPRESSION: Unchanged from initial note. PLAN: No change from initial note. MAN Vikram ONOFRE MD DR: NEO/janae JOB#: [id number] / [id number]
--- NOTE | 2019-03-11 20:33 | PN ---
DATE: 03/10/2019 PSYCHIATRIC PROGRESS NOTE This late entry 03/10/2019 covers elements not covered in my initial note. SUBJECTIVE: I met with the patient in the evening of 03/10/2019 staffed at a treatment team meeting with the entire team in the morning. Reviewed the patient's history and diagnosis. He has been somewhat more paranoid, suspicious since the Risperdal was stopped because of drop in his wbc's. He does have a myelodysplastic syndrome and we will check with Dr. Anderson if we can restart the Risperdal and if we can we will go ahead and restart it at 0.5 mg p.o. at bedtime. He slept 7-1/4 hours previous evening. REVIEW OF SYSTEMS: Ambulation impaired with walker. No CV, , pulmonary, eye system symptoms on review. MENTAL STATUS EXAM: Oriented to himself and situation. Speech coherent. He is paranoid, anxious, very suspicious as I questioned him how his day was going "Why do you ask me all these questions. You always do. There is something wrong." Abstraction fair, computation impaired, language function intact, attention span short. Mood and affect remains anxious, labile, but for the most part with nursing staff, he does well. LABORATORY DATA: Reviewed. IMPRESSION: Unchanged from initial note. PLAN: As noted above. May need to restart Risperdal. Maintain Zoloft, Exelon patch along with Ativan p.r.n. YOLI ONOFRE MD DR: NEO/janae JOB#: [id number] / [id number]
--- NOTE | 2019-03-11 22:38 | PDOC ---
Exam Note: Adam Note: Please also refer to the separate dictated note~for this date of service dictated separately.~Patient seen individually. Discussed the patient with Nursing staff reviewed the chart.~Reviewed interim history and current functioning. Reviewed vital signs,~Labs/ Radiology~and current medications noted below. Continue current treatment with the changes noted in the dictated addendum note Assessment: Vital Signs: Vital Signs Date Time Temp Pulse Resp B/P (MAP) Pulse Ox O2 Delivery O2 Flow Rate FiO2 03/11/19 16:00 99.0 82 20 155/69 (97) 96 03/11/19 05:23 Room Air I&O Intake and Output 03/11/19 06:59 Intake Total 840 ml Balance 840 ml Intake Oral 840 ml # Voids 1 Labs: Laboratory Tests Test 03/11/19 06:34 White Blood Count 1.6 x10^3/uL (4.0-11.0) #*L Red Blood Count 1.82 x10^6/uL (4.30-5.70) L Hemoglobin 7.1 g/dL (13.0-17.5) L Hematocrit 20.6 % (39.0-53.0) L Mean Corpuscular Volume 113 fL (79-100) H Mean Corpuscular Hemoglobin 39 pg (25-35) H Mean Corpuscular Hemoglobin Concent 34 g/dL (31-37) Red Cell Distribution Width 16.6 % (11.5-14.5) H Platelet Count 48 x10^3/uL (140-400) L Current Medications: Meds: Current Medications Acetaminophen (Tylenol) 650 mg PRN Q6HRS PRN PO PAIN / TEMP; Start 02/16/19 at 17:00; Status Cancel Multi-Ingredient Ointment (Analgesic [place]) 1 iesha PRN QID PRN TP MUSCLE PAIN Last administered on 03/07/19at 22:34; Start 02/16/19 at 17:00 Al Hydroxide/Mg Hydroxide (Mylanta Plus Xs) 15 ml PRN AFTMEALHC PRN PO DYSPEPSIA; Start 02/16/19 at 17:00 Magnesium Hydroxide (Milk Of Magnesia) 2,400 mg PRN QHS PRN PO CONSTIPATION; Start 02/16/19 at 17:00 Cyanocobalamin (Vitamin B-12) 1,000 mcg DAILY PO Last administered on 02/19/19 09:05; Start 02/17/19 at 09:00; Stop 02/19/19 at 18:50; Status DC Acetaminophen/ Hydrocodone Bitart (Lortab 10/325) 1 tab PRN BID PRN PO PAIN Last administered on 03/11/19 05:23; Start 02/16/19 at 17:45 Acetaminophen/ Hydrocodone Bitart (Lortab 10/325) 1 tab DAILY PRN PO PAIN; Start 02/16/19 at 17:45; Status UNV Methocarbamol (Robaxin) 750 mg BID PO Last administered on 03/11/19 19:51; Start 02/16/19 at 21:00 Nystatin (Mycostatin) 1 iesha TID TP Last administered on 03/04/19 08:45; Start 02/16/19 at 21:00; Stop 03/04/19 at 09:02; Status DC Senna/Docusate Sodium (Senna Plus) 1 tab PRN BID PRN PO CONSTIPATION; Start 02/16/19 at 17:45 Tamsulosin HCl (Flomax) 0.4 mg DAILYWSUP PO Last administered on 03/11/19 17:08; Start 02/17/19 at 17:00 Acetaminophen (Tylenol) 500 mg PRN Q8HRS PRN PO PAIN / TEMP Last administered on 02/25/19 20:48; Start 02/16/19 at 18:00; Stop 02/26/19 at 00:30; Status DC Vitamin D (Vitamin D3) 5,000 unit DAILY PO Last administered on 03/11/19 08:51; Start 02/17/19 at 09:00 Folic Acid (Folic Acid) 1 mg DAILY PO Last administered on 03/11/19 08:51; Start 02/17/19 at 09:00 Naproxen (Naprosyn) 375 mg BID PO Last administered on 03/11/19 19:52; Start 02/16/19 at 21:00 Risperidone (RisperDAL) 0.25 mg DAILY SL Last administered on 02/19/19 09:06; Start 02/18/19 at 09:00; Stop 02/19/19 at 21:45; Status DC Sertraline HCl (Zoloft) 25 mg DAILY PO Last administered on 02/20/19 08:11; Start 02/18/19 at 09:00; Stop 02/20/19 at 09:01; Status DC Sertraline HCl (Zoloft) 50 mg DAILY PO Last administered on 03/11/19 08:52; Start 02/21/19 at 09:00 Rivastigmine (Exelon) 1 patch DAILY TD Last administered on 02/24/19 10:18; Start 02/18/19 at 09:00; Stop 02/24/19 at 09:01; Status DC Rivastigmine (Exelon) 1 patch DAILY TD Last administered on 03/11/19 08:53; Start 02/25/19 at 09:00 Risperidone (RisperDAL) 0.5 mg DAILY SL Last administered on 02/26/19 08:16; Start 02/20/19 at 09:00; Stop 02/26/19 at 14:13; Status DC Acetaminophen (Tylenol) 500 mg Q8HRS PO Last administered on 03/11/19 19:51; Start 02/26/19 at 09:00 Acetaminophen (Tylenol) 500 mg PRN Q8HRS PRN PO PAIN / TEMP; Start 02/26/19 at 00:30; Stop 02/26/19 at 12:25; Status DC Tbo-Filgrastim (Granix) 300 mcg QHS SQ Last administered on 02/27/19 21:53; Start 02/27/19 at 21:00; Stop 02/28/19 at 16:39; Status DC Lorazepam (Ativan) 0.5 mg PRN Q6HRS PRN PO ANXIETY / AGITATION; Start 02/27/19 at 17:15 Nystatin (Mycostatin) 1 iesha PRN TID PRN TP itchy area on r. inner buttock; Start 03/04/19 at 09:15 Tbo-Filgrastim (Granix) 300 mcg QHS SQ Last administered on 03/06/19 20:29; Start 03/06/19 at 21:00; Stop 03/07/19 at 21:01; Status DC Risperidone (RisperDAL) 0.5 mg DAILY PO Last administered on 03/11/19 08:56; Start 03/11/19 at 09:00 Tbo-Filgrastim (Granix) 300 mcg QHS SQ ; Start 03/11/19 at 21:00; Stop 03/11/19 at 21:00; Status DC Tbo-Filgrastim (Granix) 300 mcg DAILY SQ Last administered on 03/11/19at 08:52; Start 03/11/19 at 09:00; Stop 03/11/19 at 12:00; Status DC Active Scripts Active Reported Zoloft (Sertraline Hcl) 50 Mg Tablet 50 Mg PO DAILY Senna Plus Tablet (Sennosides/Docusate Sodium) 1 Each Tablet 1 Each PO PRN BID PRN EXELON 9.5mg/24hr (Rivastigmine) 1 Each Patch.td24 1 Patch TD DAILY Analgesic [place] (Methyl Salicylate/Menthol) 28 Gm Oint...g. 1 Iesha TP PRN QID PRN Milk Of Magnesia (Magnesium Hydroxide) 2,400 Mg/10 Ml Oral.susp 2,400 Mg PO PRN QHS PRN Mag-Al Plus Xs Suspension (Mag Hydrox/Al Hydrox/Simeth) 30 Ml Oral.susp 15 Ml PO PRN AFTMEALHC PRN Ativan (Lorazepam) 1 Mg Tablet 0.5 Mg PO PRN Q6HRS PRN Flomax (Tamsulosin Hcl) 0.4 Mg Cap.er.24h 1 Cap PO DAILYWSUP Folic Acid 1 Mg Tablet 1 Mg PO DAILY Acetaminophen 500 Mg Tablet 500 Mg PO Q8HRS Vitamin D3 (Cholecalciferol (Vitamin D3)) 5,000 Unit Tablet 1 Tab PO DAILY Nystatin 15 Gm Oint...g. 1 Iesha TP PRN TID PRN Naproxen 375 Mg Tablet 375 Mg PO BID Robaxin (Methocarbamol) 500 Mg Tablet 750 Mg PO BID Hydrocodone-Apap 10-325 (Hydrocodone Bit/Acetaminophen) 1 Each Tablet 1 Tab PO BID PRN I have reviewed the current psychotropics carefully including drug interactions. Risk benefit ratio favors no change other than as noted in my dictated progress note. Diagnosis: Problems: (1) Anxiety disorder (2) Dementia in Alzheimer's disease with delusions (3) Dementia in Alzheimer's disease with depression (4) Dementia, vascular, with delusions (5) Dementia, vascular, with depression (6) Impulse control disorder (7) Psychosis, atypical (8) Major depressive disorder, recurrent episode YOLI ONOFRE MD March 11, 2019 22:38
[2019-03-12] MEDS: ACETAMINOPHEN 500 MG TABLET PO SCH ×3 (04:55→19:42)
[2019-03-12 06:15] VITALS: BP 144/77
[2019-03-12] MEDS: METHYL SALICYLATE/MENTHOL TOPICAL OINTMENT 29GM TUBE. TP PRN ×2 (06:26→21:36)
[2019-03-12 07:52] LABS: BASO # 0.2 x10^3/uL (0.0-0.2); BASO % 3 % (0-3); EOS % 0 % (0-3); HEMATOCRIT 24.5 % (39.0-53.0); HEMOGLOBIN 8.4 g/dL (13.0-17.5); LYMPH # 0.6 x10^3/uL (1.0-4.8); LYMPH % 11 % (24-48); MEAN CORPUSCULAR HEMOGLOBIN 39 pg (25-35); MEAN CORPUSCULAR HGB CONC 34 g/dL (31-37); MEAN CORPUSCULAR VOLUME 114 fL (79-100); MONO # 0.4 x10^3/uL (0.0-1.1); MONO % 7 % (0-9); NEUT # 4.5 x10^3uL (1.8-7.7); NEUT % 79 % (31-73); PLATELET COUNT 52 x10^3/uL (140-400); RED BLOOD COUNT 2.15 x10^6/uL (4.30-5.70); RED CELL DISTRIBUTION WIDTH 16.5 % (11.5-14.5); WHITE BLOOD COUNT 5.7 x10^3/uL (4.0-11.0)
[2019-03-12 08:05] LABS: ALBUMIN 3.7 g/dL (3.4-5.0); ALBUMIN/GLOBULIN RATIO 1.7 (1.0-1.7); CALCIUM 8.7 mg/dL (8.5-10.1); CREATININE 0.7 mg/dL (0.7-1.3); GFR 106.7; TOTAL BILIRUBIN 0.9 mg/dL (0.2-1.0); TOTAL PROTEIN 5.9 g/dL (6.4-8.2)
[2019-03-12] MEDS: RIVASTIGMINE 9.5MG PATCH. TD SCH (10:20)
[2019-03-12] MEDS: NAPROXEN 375 MG TABLET PO SCH ×2 (10:21→20:37)
[2019-03-12] MEDS: risperiDONE 0.5 MG TABLET. PO SCH (10:21)
[2019-03-12] MEDS: CHOLECALCIFEROL (VITAMIN D3) 1,000 UNIT TABLET PO SCH (10:21)
[2019-03-12] MEDS: FOLIC ACID 1 MG TABLET PO SCH (10:22)
[2019-03-12] MEDS: METHOCARBAMOL 500 MG TABLET PO SCH ×2 (10:22→19:42)
[2019-03-12] MEDS: SERTRALINE 50 MG TABLET. PO SCH (10:22)
[2019-03-12 15:38] VITALS: BP 148/81
[2019-03-12] MEDS: TAMSULOSIN 0.4 MG CAP.ER.24H. PO SCH (17:29)
--- NOTE | 2019-03-12 22:34 | PDOC ---
Exam Note: Adam Note: Please also refer to the separate dictated note~for this date of service dictated separately.~Patient seen individually. Discussed the patient with Nursing staff reviewed the chart.~Reviewed interim history and current functioning. Reviewed vital signs,~Labs/ Radiology~and current medications noted below. Continue current treatment with the changes noted in the dictated addendum note Assessment: Vital Signs: Vital Signs Date Time Temp Pulse Resp B/P (MAP) Pulse Ox O2 Delivery O2 Flow Rate FiO2 03/12/19 15:38 98.2 72 16 148/81 (103) 97 03/12/19 06:15 Room Air I&O Intake and Output 03/12/19 06:59 Intake Total 840 ml Balance 840 ml Intake Oral 840 ml Labs: Laboratory Tests Test 03/12/19 07:43 White Blood Count 5.7 x10^3/uL (4.0-11.0) # Red Blood Count 2.15 x10^6/uL (4.30-5.70) L Hemoglobin 8.4 g/dL (13.0-17.5) L Hematocrit 24.5 % (39.0-53.0) L Mean Corpuscular Volume 114 fL (79-100) H Mean Corpuscular Hemoglobin 39 pg (25-35) H Mean Corpuscular Hemoglobin Concent 34 g/dL (31-37) Red Cell Distribution Width 16.5 % (11.5-14.5) H Platelet Count 52 x10^3/uL (140-400) L Neutrophils (%) (Auto) 79 % (31-73) H Lymphocytes (%) (Auto) 11 % (24-48) L Monocytes (%) (Auto) 7 % (0-9) Eosinophils (%) (Auto) 0 % (0-3) Basophils (%) (Auto) 3 % (0-3) Neutrophils # (Auto) 4.5 x10^3uL (1.8-7.7) Lymphocytes # (Auto) 0.6 x10^3/uL (1.0-4.8) L Monocytes # (Auto) 0.4 x10^3/uL (0.0-1.1) Eosinophils # (Auto) 0.0 x10^3/uL (0.0-0.7) Basophils # (Auto) 0.2 x10^3/uL (0.0-0.2) Sodium Level 141 mmol/L (136-145) Potassium Level 4.0 mmol/L (3.5-5.1) Chloride Level 104 mmol/L (98-107) Carbon Dioxide Level 30 mmol/L (21-32) Anion Gap 7 (6-14) Blood Urea Nitrogen 13 mg/dL (8-26) Creatinine 0.7 mg/dL (0.7-1.3) Estimated GFR (Cockcroft-Gault) 106.7 BUN/Creatinine Ratio 19 (6-20) Glucose Level 90 mg/dL (70-99) Calcium Level 8.7 mg/dL (8.5-10.1) Total Bilirubin 0.9 mg/dL (0.2-1.0) Aspartate Amino Transferase (AST) 9 U/L (15-37) L Alanine Aminotransferase (ALT) 16 U/L (16-63) Alkaline Phosphatase 55 U/L (46-116) Total Protein 5.9 g/dL (6.4-8.2) L Albumin 3.7 g/dL (3.4-5.0) Albumin/Globulin Ratio 1.7 (1.0-1.7) Current Medications: Meds: Current Medications Acetaminophen (Tylenol) 650 mg PRN Q6HRS PRN PO PAIN / TEMP; Start 02/16/19 at 17:00; Status Cancel Multi-Ingredient Ointment (Analgesic [place]) 1 iesha PRN QID PRN TP MUSCLE PAIN Last administered on 03/12/19at 21:36; Start 02/16/19 at 17:00 Al Hydroxide/Mg Hydroxide (Mylanta Plus Xs) 15 ml PRN AFTMEALHC PRN PO DYSPEPSIA; Start 02/16/19 at 17:00 Magnesium Hydroxide (Milk Of Magnesia) 2,400 mg PRN QHS PRN PO CONSTIPATION; Start 02/16/19 at 17:00 Cyanocobalamin (Vitamin B-12) 1,000 mcg DAILY PO Last administered on 02/19/19at 09:05; Start 02/17/19 at 09:00; Stop 02/19/19 at 18:50; Status DC Acetaminophen/ Hydrocodone Bitart (Lortab 10/325) 1 tab PRN BID PRN PO PAIN Last administered on 03/11/19at 05:23; Start 02/16/19 at 17:45 Acetaminophen/ Hydrocodone Bitart (Lortab 10/325) 1 tab DAILY PRN PO PAIN; Start 02/16/19 at 17:45; Status UNV Methocarbamol (Robaxin) 750 mg BID PO Last administered on 03/12/19 19:42; Start 02/16/19 at 21:00 Nystatin (Mycostatin) 1 iesha TID TP Last administered on 03/04/19 08:45; Start 02/16/19 at 21:00; Stop 03/04/19 at 09:02; Status DC Senna/Docusate Sodium (Senna Plus) 1 tab PRN BID PRN PO CONSTIPATION; Start 02/16/19 at 17:45 Tamsulosin HCl (Flomax) 0.4 mg DAILYWSUP PO Last administered on 03/12/19 17:29; Start 02/17/19 at 17:00 Acetaminophen (Tylenol) 500 mg PRN Q8HRS PRN PO PAIN / TEMP Last administered on 02/25/19 20:48; Start 02/16/19 at 18:00; Stop 02/26/19 at 00:30; Status DC Vitamin D (Vitamin D3) 5,000 unit DAILY PO Last administered on 03/12/19 10:21; Start 02/17/19 at 09:00 Folic Acid (Folic Acid) 1 mg DAILY PO Last administered on 03/12/19 10:22; Start 02/17/19 at 09:00 Naproxen (Naprosyn) 375 mg BID PO Last administered on 03/12/19 20:37; Start 02/16/19 at 21:00 Risperidone (RisperDAL) 0.25 mg DAILY SL Last administered on 02/19/19 09:06; Start 02/18/19 at 09:00; Stop 02/19/19 at 21:45; Status DC Sertraline HCl (Zoloft) 25 mg DAILY PO Last administered on 02/20/19 08:11; Start 02/18/19 at 09:00; Stop 02/20/19 at 09:01; Status DC Sertraline HCl (Zoloft) 50 mg DAILY PO Last administered on 03/12/19 10:22; Start 02/21/19 at 09:00 Rivastigmine (Exelon) 1 patch DAILY TD Last administered on 02/24/19 10:18; Start 02/18/19 at 09:00; Stop 02/24/19 at 09:01; Status DC Rivastigmine (Exelon) 1 patch DAILY TD Last administered on 03/12/19 10:20; Start 02/25/19 at 09:00 Risperidone (RisperDAL) 0.5 mg DAILY SL Last administered on 02/26/19 08:16; Start 02/20/19 at 09:00; Stop 02/26/19 at 14:13; Status DC Acetaminophen (Tylenol) 500 mg Q8HRS PO Last administered on 03/12/19 19:42; Start 02/26/19 at 09:00 Acetaminophen (Tylenol) 500 mg PRN Q8HRS PRN PO PAIN / TEMP; Start 02/26/19 at 00:30; Stop 02/26/19 at 12:25; Status DC Tbo-Filgrastim (Granix) 300 mcg QHS SQ Last administered on 02/27/19 21:53; Start 02/27/19 at 21:00; Stop 02/28/19 at 16:39; Status DC Lorazepam (Ativan) 0.5 mg PRN Q6HRS PRN PO ANXIETY / AGITATION; Start 02/27/19 at 17:15 Nystatin (Mycostatin) 1 iesha PRN TID PRN TP itchy area on r. inner buttock; Start 03/04/19 at 09:15 Tbo-Filgrastim (Granix) 300 mcg QHS SQ Last administered on 03/06/19 20:29; Start 03/06/19 at 21:00; Stop 03/07/19 at 21:01; Status DC Risperidone (RisperDAL) 0.5 mg DAILY PO Last administered on 03/12/19 10:21; Start 03/11/19 at 09:00 Tbo-Filgrastim (Granix) 300 mcg QHS SQ ; Start 03/11/19 at 21:00; Stop 03/11/19 at 21:00; Status DC Tbo-Filgrastim (Granix) 300 mcg DAILY SQ Last administered on 03/11/19at 08:52; Start 03/11/19 at 09:00; Stop 03/11/19 at 12:00; Status DC Active Scripts Active Reported Zoloft (Sertraline Hcl) 50 Mg Tablet 50 Mg PO DAILY Senna Plus Tablet (Sennosides/Docusate Sodium) 1 Each Tablet 1 Each PO PRN BID PRN EXELON 9.5mg/24hr (Rivastigmine) 1 Each Patch.td24 1 Patch TD DAILY Analgesic [place] (Methyl Salicylate/Menthol) 28 Gm Oint...g. 1 Iesha TP PRN QID PRN Milk Of Magnesia (Magnesium Hydroxide) 2,400 Mg/10 Ml Oral.susp 2,400 Mg PO PRN QHS PRN Mag-Al Plus Xs Suspension (Mag Hydrox/Al Hydrox/Simeth) 30 Ml Oral.susp 15 Ml PO PRN AFTMEALHC PRN Ativan (Lorazepam) 1 Mg Tablet 0.5 Mg PO PRN Q6HRS PRN Flomax (Tamsulosin Hcl) 0.4 Mg Cap.er.24h 1 Cap PO DAILYWSUP Folic Acid 1 Mg Tablet 1 Mg PO DAILY Acetaminophen 500 Mg Tablet 500 Mg PO Q8HRS Vitamin D3 (Cholecalciferol (Vitamin D3)) 5,000 Unit Tablet 1 Tab PO DAILY Nystatin 15 Gm Oint...g. 1 Iesha TP PRN TID PRN Naproxen 375 Mg Tablet 375 Mg PO BID Robaxin (Methocarbamol) 500 Mg Tablet 750 Mg PO BID Hydrocodone-Apap 10-325 (Hydrocodone Bit/Acetaminophen) 1 Each Tablet 1 Tab PO BID PRN I have reviewed the current psychotropics carefully including drug interactions. Risk benefit ratio favors no change other than as noted in my dictated progress note. Diagnosis: Problems: (1) Anxiety disorder (2) Dementia in Alzheimer's disease with delusions (3) Dementia in Alzheimer's disease with depression (4) Dementia, vascular, with delusions (5) Dementia, vascular, with depression (6) Impulse control disorder (7) Psychosis, atypical (8) Major depressive disorder, recurrent episode YOLI ONOFRE MD March 12, 2019 22:34
[2019-03-13] MEDS: ACETAMINOPHEN 500 MG TABLET PO SCH ×3 (05:09→20:16)
[2019-03-13 06:58] VITALS: BP 169/72
[2019-03-13] MEDS: risperiDONE 0.5 MG TABLET. PO SCH (08:59)
[2019-03-13] MEDS: RIVASTIGMINE 9.5MG PATCH. TD SCH (08:59)
[2019-03-13] MEDS: CHOLECALCIFEROL (VITAMIN D3) 1,000 UNIT TABLET PO SCH (08:59)
[2019-03-13] MEDS: FOLIC ACID 1 MG TABLET PO SCH (08:59)
[2019-03-13] MEDS: NAPROXEN 375 MG TABLET PO SCH ×2 (09:00→20:14)
[2019-03-13] MEDS: METHOCARBAMOL 500 MG TABLET PO SCH ×2 (09:01→20:14)
[2019-03-13] MEDS: SERTRALINE 50 MG TABLET. PO SCH (09:01)
[2019-03-13] MEDS: HYDROcodone/APAP 10/325 1 TAB TABLET PO PRN (09:01)
[2019-03-13 15:59] VITALS: BP 147/76
[2019-03-13] MEDS: TAMSULOSIN 0.4 MG CAP.ER.24H. PO SCH (17:15)
--- NOTE | 2019-03-13 19:55 | PN ---
DATE: 03/11/2019 PSYCHIATRIC PROGRESS NOTE This late entry 03/11/2019 covers elements not covered in my initial note. SUBJECTIVE: I met with the patient in the evening of 03/11/2019. The patient slept 7 hours previous night. He is doing better since Risperdal was restarted. He did receive Neupogen and white cell count has improved. REVIEW OF SYSTEMS: Ambulation impaired with walker. No CV, , pulmonary, eye system symptoms on review. MENTAL STATUS EXAM: Oriented to himself and situation. Speech is coherent, less pressured. Abstraction fair, computation impaired, language function intact, attention span short. Mood and affect less anxious and labile. He does have short term memory deficits. LABORATORY DATA: Reviewed. IMPRESSION: Unchanged from initial note. PLAN: No change from initial note. MAN Vikram ONOFRE MD DR: NEO/janae JOB#: [id number] / [id number]
[2019-03-13] MEDS: METHYL SALICYLATE/MENTHOL TOPICAL OINTMENT 29GM TUBE. TP PRN (20:16)
--- NOTE | 2019-03-13 22:26 | PDOC ---
Exam Note: Adam Note: Please also refer to the separate dictated note~for this date of service dictated separately.~Patient seen individually. Discussed the patient with Nursing staff reviewed the chart.~Reviewed interim history and current functioning. Reviewed vital signs,~Labs/ Radiology~and current medications noted below. Continue current treatment with the changes noted in the dictated addendum note Assessment: Vital Signs: Vital Signs Date Time Temp Pulse Resp B/P (MAP) Pulse Ox O2 Delivery O2 Flow Rate FiO2 03/13/19 15:59 97.7 63 18 147/76 (99) 97 03/13/19 11:00 Room Air I&O Intake and Output 03/13/19 07:00 Intake Total 1320 ml Balance 1320 ml Intake Oral 1320 ml Current Medications: Meds: Current Medications Acetaminophen (Tylenol) 650 mg PRN Q6HRS PRN PO PAIN / TEMP; Start 02/16/19 at 17:00; Status Cancel Multi-Ingredient Ointment (Analgesic [place]) 1 iesha PRN QID PRN TP MUSCLE PAIN Last administered on 03/13/19at 20:16; Start 02/16/19 at 17:00 Al Hydroxide/Mg Hydroxide (Mylanta Plus Xs) 15 ml PRN AFTMEALHC PRN PO DYSPEPSIA; Start 02/16/19 at 17:00 Magnesium Hydroxide (Milk Of Magnesia) 2,400 mg PRN QHS PRN PO CONSTIPATION; Start 02/16/19 at 17:00 Cyanocobalamin (Vitamin B-12) 1,000 mcg DAILY PO Last administered on 02/19/19at 09:05; Start 02/17/19 at 09:00; Stop 02/19/19 at 18:50; Status DC Acetaminophen/ Hydrocodone Bitart (Lortab 10/325) 1 tab PRN BID PRN PO PAIN Last administered on 03/13/19at 09:01; Start 02/16/19 at 17:45 Acetaminophen/ Hydrocodone Bitart (Lortab 10/325) 1 tab DAILY PRN PO PAIN; Start 02/16/19 at 17:45; Status UNV Methocarbamol (Robaxin) 750 mg BID PO Last administered on 03/13/19at 20:14; Start 02/16/19 at 21:00 Nystatin (Mycostatin) 1 iesha TID TP Last administered on 5/17/19at 08:45; Start 02/16/19 at 21:00; Stop 03/04/19 at 09:02; Status DC Senna/Docusate Sodium (Senna Plus) 1 tab PRN BID PRN PO CONSTIPATION; Start 02/16/19 at 17:45 Tamsulosin HCl (Flomax) 0.4 mg DAILYWSUP PO Last administered on 03/13/19 17:15; Start 02/17/19 at 17:00 Acetaminophen (Tylenol) 500 mg PRN Q8HRS PRN PO PAIN / TEMP Last administered o n 02/25/19 20:48; Start 02/16/19 at 18:00; Stop 02/26/19 at 00:30; Status DC Vitamin D (Vitamin D3) 5,000 unit DAILY PO Last administered on 03/13/19 08:59; Start 02/17/19 at 09:00 Folic Acid (Folic Acid) 1 mg DAILY PO Last administered on 03/13/19 08:59; Start 02/17/19 at 09:00 Naproxen (Naprosyn) 375 mg BID PO Last administered on 03/13/19 20:14; Start 02/16/19 at 21:00 Risperidone (RisperDAL) 0.25 mg DAILY SL Last administered on 02/19/19 09:06; Start 02/18/19 at 09:00; Stop 02/19/19 at 21:45; Status DC Sertraline HCl (Zoloft) 25 mg DAILY PO Last administered on 02/20/19 08:11; Start 02/18/19 at 09:00; Stop 02/20/19 at 09:01; Status DC Sertraline HCl (Zoloft) 50 mg DAILY PO Last administered on 03/13/19 09:01; Start 02/21/19 at 09:00 Rivastigmine (Exelon) 1 patch DAILY TD Last administered on 02/24/19 10:18; Start 02/18/19 at 09:00; Stop 02/24/19 at 09:01; Status DC Rivastigmine (Exelon) 1 patch DAILY TD Last administered on 03/13/19 08:59; Start 02/25/19 at 09:00 Risperidone (RisperDAL) 0.5 mg DAILY SL Last administered on 5/11/19at 08:16; Start 02/20/19 at 09:00; Stop 02/26/19 at 14:13; Status DC Acetaminophen (Tylenol) 500 mg Q8HRS PO Last administered on 03/13/19at 20:16; Start 02/26/19 at 09:00 Acetaminophen (Tylenol) 500 mg PRN Q8HRS PRN PO PAIN / TEMP; Start 02/26/19 at 00:30; Stop 02/26/19 at 12:25; Status DC Tbo-Filgrastim (Granix) 300 mcg QHS SQ Last administered on 02/27/19at 21:53; Start 02/27/19 at 21:00; Stop 02/28/19 at 16:39; Status DC Lorazepam (Ativan) 0.5 mg PRN Q6HRS PRN PO ANXIETY / AGITATION; Start 02/27/19 at 17:15 Nystatin (Mycostatin) 1 iesha PRN TID PRN TP itchy area on r. inner buttock; Start 03/04/19 at 09:15 Tbo-Filgrastim (Granix) 300 mcg QHS SQ Last administered on 03/06/19at 20:29; Start 03/06/19 at 21:00; Stop 03/07/19 at 21:01; Status DC Risperidone (RisperDAL) 0.5 mg DAILY PO Last administered on 03/13/19at 08:59; Start 03/11/19 at 09:00 Tbo-Filgrastim (Granix) 300 mcg QHS SQ ; Start 03/11/19 at 21:00; Stop 03/11/19 at 21:00; Status DC Tbo-Filgrastim (Granix) 300 mcg DAILY SQ Last administered on 03/11/19at 08:52; Start 03/11/19 at 09:00; Stop 03/11/19 at 12:00; Status DC Active Scripts Active Reported Zoloft (Sertraline Hcl) 50 Mg Tablet 50 Mg PO DAILY Senna Plus Tablet (Sennosides/Docusate Sodium) 1 Each Tablet 1 Each PO PRN BID PRN EXELON 9.5mg/24hr (Rivastigmine) 1 Each Patch.td24 1 Patch TD DAILY Analgesic [place] (Methyl Salicylate/Menthol) 28 Gm Oint...g. 1 Iesha TP PRN QID PRN Milk Of Magnesia (Magnesium Hydroxide) 2,400 Mg/10 Ml Oral.susp 2,400 Mg PO PRN QHS PRN Mag-Al Plus Xs Suspension (Mag Hydrox/Al Hydrox/Simeth) 30 Ml Oral.susp 15 Ml PO PRN AFTMEALHC PRN Ativan (Lorazepam) 1 Mg Tablet 0.5 Mg PO PRN Q6HRS PRN Flomax (Tamsulosin Hcl) 0.4 Mg Cap.er.24h 1 Cap PO DAILYWSUP Folic Acid 1 Mg Tablet 1 Mg PO DAILY Acetaminophen 500 Mg Tablet 500 Mg PO Q8HRS Vitamin D3 (Cholecalciferol (Vitamin D3)) 5,000 Unit Tablet 1 Tab PO DAILY Nystatin 15 Gm Oint...g. 1 Iesha TP PRN TID PRN Naproxen 375 Mg Tablet 375 Mg PO BID Robaxin (Methocarbamol) 500 Mg Tablet 750 Mg PO BID Hydrocodone-Apap 10-325 (Hydrocodone Bit/Acetaminophen) 1 Each Tablet 1 Tab PO BID PRN I have reviewed the current psychotropics carefully including drug interactions. Risk benefit ratio favors no change other than as noted in my dictated progress note. Diagnosis: Problems: (1) Anxiety disorder (2) Dementia in Alzheimer's disease with delusions (3) Dementia in Alzheimer's disease with depression (4) Dementia, vascular, with delusions (5) Dementia, vascular, with depression (6) Impulse control disorder (7) Psychosis, atypical (8) Major depressive disorder, recurrent episode YOLI ONOFRE MD March 13, 2019 22:26
[2019-03-14] MEDS: ACETAMINOPHEN 500 MG TABLET PO SCH ×3 (05:08→19:34)
[2019-03-14 06:14] VITALS: BP 131/78
[2019-03-14] MEDS: RIVASTIGMINE 9.5MG PATCH. TD SCH (08:43)
[2019-03-14] MEDS: risperiDONE 0.5 MG TABLET. PO SCH (08:43)
[2019-03-14] MEDS: FOLIC ACID 1 MG TABLET PO SCH (08:44)
[2019-03-14] MEDS: SERTRALINE 50 MG TABLET. PO SCH (08:44)
[2019-03-14] MEDS: CHOLECALCIFEROL (VITAMIN D3) 1,000 UNIT TABLET PO SCH (08:44)
[2019-03-14] MEDS: NAPROXEN 375 MG TABLET PO SCH ×2 (08:48→19:40)
[2019-03-14] MEDS: METHOCARBAMOL 500 MG TABLET PO SCH ×2 (08:48→19:38)
[2019-03-14] MEDS: HYDROcodone/APAP 10/325 1 TAB TABLET PO PRN (08:49)
--- NOTE | 2019-03-14 12:09 | PN ---
DATE: 03/13/2019 PSYCHIATRIC PROGRESS NOTE This note covers elements not covered in my initial note 03/13/2019. SUBJECTIVE: I met with the patient evening of 03/13/2019. The patient slept 6 hours previous night. I met with him in his room. He has been somewhat withdrawn, but less paranoid, less irritable. REVIEW OF SYSTEMS: Ambulation impaired, in wheelchair. No CV, , pulmonary, eye, ENT system symptoms on review. MENTAL STATUS EXAM: Oriented to himself and situation. Speech is coherent, has some latency. Abstraction fair, computation impaired, language function intact, attention span short. Mood and affect somewhat withdrawn. LABORATORY DATA: Reviewed. IMPRESSION: Unchanged from initial note. PLAN: No change from initial note. MAN Vikram ONOFRE MD DR: NEO/janae JOB#: [id number] / [id number]
[2019-03-14 16:09] VITALS: BP 147/70
[2019-03-14] MEDS: TAMSULOSIN 0.4 MG CAP.ER.24H. PO SCH (17:05)
--- NOTE | 2019-03-14 22:32 | PDOC ---
Exam Note: Adam Note: Please also refer to the separate dictated note~for this date of service dictated separately.~Patient seen individually. Discussed the patient with Nursing staff reviewed the chart.~Reviewed interim history and current functioning. Reviewed vital signs,~Labs/ Radiology~and current medications noted below. Continue current treatment with the changes noted in the dictated addendum note Assessment: Vital Signs: Vital Signs Date Time Temp Pulse Resp B/P (MAP) Pulse Ox O2 Delivery O2 Flow Rate FiO2 03/14/19 16:09 98.8 76 20 147/70 (95) 94 03/14/19 10:30 Room Air I&O Intake and Output 03/14/19 06:59 Intake Total 870 ml Balance 870 ml Intake Oral 870 ml Current Medications: Meds: Current Medications Acetaminophen (Tylenol) 650 mg PRN Q6HRS PRN PO PAIN / TEMP; Start 02/16/19 at 17:00; Status Cancel Multi-Ingredient Ointment (Analgesic Plush) 1 iesha PRN QID PRN TP MUSCLE PAIN Last administered on 03/13/19at 20:16; Start 02/16/19 at 17:00 Al Hydroxide/Mg Hydroxide (Mylanta Plus Xs) 15 ml PRN AFTMEALHC PRN PO DYSPEPSIA; Start 02/16/19 at 17:00 Magnesium Hydroxide (Milk Of Magnesia) 2,400 mg PRN QHS PRN PO CONSTIPATION; Start 02/16/19 at 17:00 Cyanocobalamin (Vitamin B-12) 1,000 mcg DAILY PO Last administered on 02/19/19at 09:05; Start 02/17/19 at 09:00; Stop 02/19/19 at 18:50; Status DC Acetaminophen/ Hydrocodone Bitart (Lortab 10/325) 1 tab PRN BID PRN PO PAIN Last administered on 03/14/19at 08:49; Start 02/16/19 at 17:45 Acetaminophen/ Hydrocodone Bitart (Lortab 10/325) 1 tab DAILY PRN PO PAIN; Start 02/16/19 at 17:45; Status UNV Methocarbamol (Robaxin) 750 mg BID PO Last administered on 03/14/19at 19:38; Start 02/16/19 at 21:00 Nystatin (Mycostatin) 1 iesha TID TP Last administered on 5/17/19at 08:45; Start 02/16/19 at 21:00; Stop 03/04/19 at 09:02; Status DC Senna/Docusate Sodium (Senna Plus) 1 tab PRN BID PRN PO CONSTIPATION; Start 02/16/19 at 17:45 Tamsulosin HCl (Flomax) 0.4 mg DAILYWSUP PO Last administered on 03/14/19 17:05; Start 02/17/19 at 17:00 Acetaminophen (Tylenol) 500 mg PRN Q8HRS PRN PO PAIN / TEMP Last administered on 02/25/19 20:48; Start 02/16/19 at 18:00; Stop 02/26/19 at 00:30; Status DC Vitamin D (Vitamin D3) 5,000 unit DAILY PO Last administered on 03/14/19 08:44; Start 02/17/19 at 09:00 Folic Acid (Folic Acid) 1 mg DAILY PO Last administered on 03/14/19 08:44; Start 02/17/19 at 09:00 Naproxen (Naprosyn) 375 mg BID PO Last administered on 03/14/19 19:40; Start 02/16/19 at 21:00 Risperidone (RisperDAL) 0.25 mg DAILY SL Last administered on 02/19/19 09:06; Start 02/18/19 at 09:00; Stop 02/19/19 at 21:45; Status DC Sertraline HCl (Zoloft) 25 mg DAILY PO Last administered on 02/20/19 08:11; Start 02/18/19 at 09:00; Stop 02/20/19 at 09:01; Status DC Sertraline HCl (Zoloft) 50 mg DAILY PO Last administered on 03/14/19 08:44; Start 02/21/19 at 09:00 Rivastigmine (Exelon) 1 patch DAILY TD Last administered on 02/24/19 10:18; Start 02/18/19 at 09:00; Stop 02/24/19 at 09:01; Status DC Rivastigmine (Exelon) 1 patch DAILY TD Last administered on 03/14/19 08:43; Start 02/25/19 at 09:00 Risperidone (RisperDAL) 0.5 mg DAILY SL Last administered on 5/11/19at 08:16; Start 02/20/19 at 09:00; Stop 02/26/19 at 14:13; Status DC Acetaminophen (Tylenol) 500 mg Q8HRS PO Last administered on 03/14/19at 19:34; Start 02/26/19 at 09:00 Acetaminophen (Tylenol) 500 mg PRN Q8HRS PRN PO PAIN / TEMP; Start 02/26/19 at 00:30; Stop 02/26/19 at 12:25; Status DC Tbo-Filgrastim (Granix) 300 mcg QHS SQ Last administered on 02/27/19at 21:53; Start 02/27/19 at 21:00; Stop 02/28/19 at 16:39; Status DC Lorazepam (Ativan) 0.5 mg PRN Q6HRS PRN PO ANXIETY / AGITATION; Start 02/27/19 at 17:15 Nystatin (Mycostatin) 1 iesha PRN TID PRN TP itchy area on r. inner buttock; Start 03/04/19 at 09:15 Tbo-Filgrastim (Granix) 300 mcg QHS SQ Last administered on 03/06/19at 20:29; Start 03/06/19 at 21:00; Stop 03/07/19 at 21:01; Status DC Risperidone (RisperDAL) 0.5 mg DAILY PO Last administered on 03/14/19at 08:43; Start 03/11/19 at 09:00 Tbo-Filgrastim (Granix) 300 mcg QHS SQ ; Start 03/11/19 at 21:00; Stop 03/11/19 at 21:00; Status DC Tbo-Filgrastim (Granix) 300 mcg DAILY SQ Last administered on 03/11/19at 08:52; Start 03/11/19 at 09:00; Stop 03/11/19 at 12:00; Status DC Active Scripts Active Reported Zoloft (Sertraline Hcl) 50 Mg Tablet 50 Mg PO DAILY Senna Plus Tablet (Sennosides/Docusate Sodium) 1 Each Tablet 1 Each PO PRN BID PRN EXELON 9.5mg/24hr (Rivastigmine) 1 Each Patch.td24 1 Patch TD DAILY Analgesic Plush (Methyl Salicylate/Menthol) 28 Gm Oint...g. 1 Iesha TP PRN QID PRN Milk Of Magnesia (Magnesium Hydroxide) 2,400 Mg/10 Ml Oral.susp 2,400 Mg PO PRN QHS PRN Mag-Al Plus Xs Suspension (Mag Hydrox/Al Hydrox/Simeth) 30 Ml Oral.susp 15 Ml PO PRN AFTMEALHC PRN Ativan (Lorazepam) 1 Mg Tablet 0.5 Mg PO PRN Q6HRS PRN Flomax (Tamsulosin Hcl) 0.4 Mg Cap.er.24h 1 Cap PO DAILYWSUP Folic Acid 1 Mg Tablet 1 Mg PO DAILY Acetaminophen 500 Mg Tablet 500 Mg PO Q8HRS Vitamin D3 (Cholecalciferol (Vitamin D3)) 5,000 Unit Tablet 1 Tab PO DAILY Nystatin 15 Gm Oint...g. 1 Iesha TP PRN TID PRN Naproxen 375 Mg Tablet 375 Mg PO BID Robaxin (Methocarbamol) 500 Mg Tablet 750 Mg PO BID Hydrocodone-Apap 10-325 (Hydrocodone Bit/Acetaminophen) 1 Each Tablet 1 Tab PO BID PRN I have reviewed the current psychotropics carefully including drug interactions. Risk benefit ratio favors no change other than as noted in my dictated progress note. 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
--- NOTE | 2019-03-14 23:20 | PN ---
DATE: 03/14/2019 PSYCHIATRIC PROGRESS NOTE This note covers elements not covered in my initial note 03/14/2019. SUBJECTIVE: I met with the patient in the evening of 03/14/2019. He slept 8-3/4 hours previous night and is requesting. Physical Therapy and nursing staff will initiate this. REVIEW OF SYSTEMS: Ambulation impaired, in wheelchair. No CV, , pulmonary, eye, ENT system symptoms on review. MENTAL STATUS EXAM: Oriented to himself and situation. Speech is coherent, has some latency. Abstraction fair, computation impaired, language function intact, attention span short. He appears much less psychotic. Mood is better. LABORATORY DATA: Reviewed. IMPRESSION: Unchanged from initial note. PLAN: No change from initial note. Maintain Risperdal 0.5 mg p.o. at bedtime. MAN Vikram ONOFRE MD DR: NEO/janae JOB#: [id number] / [id number]
--- NOTE | 2019-03-15 00:43 | PN ---
DATE: 03/12/2019 PSYCHIATRIC PROGRESS NOTE This late entry 03/12/2019 covers elements not covered in my initial note. SUBJECTIVE: I met with the patient in the evening. The patient slept 7-1/2 hours previous night. He has done better. WBC is 5, hemoglobin 8.4 post-Neupogen. REVIEW OF SYSTEMS: Ambulation impaired, in wheelchair. No CV, , pulmonary, eye, ENT system symptoms on review. MENTAL STATUS EXAM: Oriented to himself and situation. Speech is coherent, abstraction fair, computation impaired, language function intact, attention span short. Mood and affect withdrawn. LABORATORY DATA: Reviewed. IMPRESSION: Unchanged from initial note. PLAN: No change from initial note. MAN Vikram ONOFRE MD DR: NEO/janae JOB#: [id number] / [id number]
[2019-03-15] MEDS: ACETAMINOPHEN 500 MG TABLET PO SCH ×3 (05:55→20:03)
[2019-03-15 05:59] VITALS: BP 140/71
[2019-03-15] MEDS: NAPROXEN 375 MG TABLET PO SCH ×2 (08:01→20:18)
[2019-03-15] MEDS: CHOLECALCIFEROL (VITAMIN D3) 1,000 UNIT TABLET PO SCH (08:02)
[2019-03-15] MEDS: METHOCARBAMOL 500 MG TABLET PO SCH ×2 (08:02→20:03)
[2019-03-15] MEDS: FOLIC ACID 1 MG TABLET PO SCH (08:02)
[2019-03-15] MEDS: SERTRALINE 50 MG TABLET. PO SCH (08:03)
[2019-03-15] MEDS: risperiDONE 0.5 MG TABLET. PO SCH (08:03)
[2019-03-15] MEDS: RIVASTIGMINE 9.5MG PATCH. TD SCH (08:03)
[2019-03-15] MEDS: HYDROcodone/APAP 10/325 1 TAB TABLET PO PRN (08:51)
[2019-03-15 16:31] VITALS: BP 124/68
[2019-03-15] MEDS: TAMSULOSIN 0.4 MG CAP.ER.24H. PO SCH (17:07)
--- NOTE | 2019-03-15 22:36 | PDOC ---
Exam Note: Adam Note: Please also refer to the separate dictated note~for this date of service dictated separately.~Patient seen individually. Discussed the patient with Nursing staff reviewed the chart.~Reviewed interim history and current functioning. Reviewed vital signs,~Labs/ Radiology~and current medications noted below. Continue current treatment with the changes noted in the dictated addendum note Assessment: Vital Signs: Vital Signs Date Time Temp Pulse Resp B/P (MAP) Pulse Ox O2 Delivery O2 Flow Rate FiO2 03/15/19 16:31 97.2 71 16 124/68 (86) 96 Room Air I&O Intake and Output 03/15/19 06:59 Intake Total 1320 ml Output Total 600 ml Balance 720 ml Intake Oral 1320 ml Output Urine Total 600 ml # Voids 1 Current Medications: Meds: Current Medications Acetaminophen (Tylenol) 650 mg PRN Q6HRS PRN PO PAIN / TEMP; Start 02/16/19 at 17:00; Status Cancel Multi-Ingredient Ointment (Analgesic [place]) 1 iesha PRN QID PRN TP MUSCLE PAIN Last administered on 03/13/19at 20:16; Start 02/16/19 at 17:00 Al Hydroxide/Mg Hydroxide (Mylanta Plus Xs) 15 ml PRN AFTMEALHC PRN PO DYSPEPSIA; Start 02/16/19 at 17:00 Magnesium Hydroxide (Milk Of Magnesia) 2,400 mg PRN QHS PRN PO CONSTIPATION; Start 02/16/19 at 17:00 Cyanocobalamin (Vitamin B-12) 1,000 mcg DAILY PO Last administered on 02/19/19at 09:05; Start 02/17/19 at 09:00; Stop 02/19/19 at 18:50; Status DC Acetaminophen/ Hydrocodone Bitart (Lortab 10/325) 1 tab PRN BID PRN PO PAIN Last administered on 03/15/19at 08:51; Start 02/16/19 at 17:45 Acetaminophen/ Hydrocodone Bitart (Lortab 10/325) 1 tab DAILY PRN PO PAIN; Start 02/16/19 at 17:45; Status UNV Methocarbamol (Robaxin) 750 mg BID PO Last administered on 03/15/19at 20:03; Start 02/16/19 at 21:00 Nystatin (Mycostatin) 1 iesha TID TP Last administered on 03/04/19 08:45; Start 02/16/19 at 21:00; Stop 03/04/19 at 09:02; Status DC Senna/Docusate Sodium (Senna Plus) 1 tab PRN BID PRN PO CONSTIPATION; Start 02/16/19 at 17:45 Tamsulosin HCl (Flomax) 0.4 mg DAILYWSUP PO Last administered on 03/15/19 17:07; Start 02/17/19 at 17:00 Acetaminophen (Tylenol) 500 mg PRN Q8HRS PRN PO PAIN / TEMP Last administered on 02/25/19 20:48; Start 02/16/19 at 18:00; Stop 02/26/19 at 00:30; Status DC Vitamin D (Vitamin D3) 5,000 unit DAILY PO Last administered on 03/15/19 08:02; Start 02/17/19 at 09:00 Folic Acid (Folic Acid) 1 mg DAILY PO Last administered on 03/15/19 08:02; Start 02/17/19 at 09:00 Naproxen (Naprosyn) 375 mg BID PO Last administered on 03/15/19 08:01; Start 02/16/19 at 21:00 Risperidone (RisperDAL) 0.25 mg DAILY SL Last administered on 02/19/19 09:06; Start 02/18/19 at 09:00; Stop 02/19/19 at 21:45; Status DC Sertraline HCl (Zoloft) 25 mg DAILY PO Last administered on 02/20/19 08:11; Start 02/18/19 at 09:00; Stop 02/20/19 at 09:01; Status DC Sertraline HCl (Zoloft) 50 mg DAILY PO Last administered on 03/15/19 08:03; S tart 02/21/19 at 09:00 Rivastigmine (Exelon) 1 patch DAILY TD Last administered on 02/24/19 10:18; Start 02/18/19 at 09:00; Stop 02/24/19 at 09:01; Status DC Rivastigmine (Exelon) 1 patch DAILY TD Last administered on 03/15/19 08:03; Start 02/25/19 at 09:00 Risperidone (RisperDAL) 0.5 mg DAILY SL Last administered on 02/26/19at 08:16; Start 02/20/19 at 09:00; Stop 02/26/19 at 14:13; Status DC Acetaminophen (Tylenol) 500 mg Q8HRS PO Last administered on 03/15/19at 20:03; Start 02/26/19 at 09:00 Acetaminophen (Tylenol) 500 mg PRN Q8HRS PRN PO PAIN / TEMP; Start 02/26/19 at 00:30; Stop 02/26/19 at 12:25; Status DC Tbo-Filgrastim (Granix) 300 mcg QHS SQ Last administered on 02/27/19at 21:53; Start 02/27/19 at 21:00; Stop 02/28/19 at 16:39; Status DC Lorazepam (Ativan) 0.5 mg PRN Q6HRS PRN PO ANXIETY / AGITATION; Start 02/27/19 at 17:15 Nystatin (Mycostatin) 1 iesha PRN TID PRN TP itchy area on r. inner buttock; Start 03/04/19 at 09:15 Tbo-Filgrastim (Granix) 300 mcg QHS SQ Last administered on 03/06/19at 20:29; Start 03/06/19 at 21:00; Stop 03/07/19 at 21:01; Status DC Risperidone (RisperDAL) 0.5 mg DAILY PO Last administered on 03/15/19at 08:03; Start 03/11/19 at 09:00 Tbo-Filgrastim (Granix) 300 mcg QHS SQ ; Start 03/11/19 at 21:00; Stop 03/11/19 at 21:00; Status DC Tbo-Filgrastim (Granix) 300 mcg DAILY SQ Last administered on 03/11/19at 08:52; Start 03/11/19 at 09:00; Stop 03/11/19 at 12:00; Status DC Active Scripts Active Reported Zoloft (Sertraline Hcl) 50 Mg Tablet 50 Mg PO DAILY Senna Plus Tablet (Sennosides/Docusate Sodium) 1 Each Tablet 1 Each PO PRN BID PRN EXELON 9.5mg/24hr (Rivastigmine) 1 Each Patch.td24 1 Patch TD DAILY Analgesic [place] (Methyl Salicylate/Menthol) 28 Gm Oint...g. 1 Iesha TP PRN QID PRN Milk Of Magnesia (Magnesium Hydroxide) 2,400 Mg/10 Ml Oral.susp 2,400 Mg PO PRN QHS PRN Mag-Al Plus Xs Suspension (Mag Hydrox/Al Hydrox/Simeth) 30 Ml Oral.susp 15 Ml PO PRN AFTMEALHC PRN Ativan (Lorazepam) 1 Mg Tablet 0.5 Mg PO PRN Q6HRS PRN Flomax (Tamsulosin Hcl) 0.4 Mg Cap.er.24h 1 Cap PO DAILYWSUP Folic Acid 1 Mg Tablet 1 Mg PO DAILY Acetaminophen 500 Mg Tablet 500 Mg PO Q8HRS Vitamin D3 (Cholecalciferol (Vitamin D3)) 5,000 Unit Tablet 1 Tab PO DAILY Nystatin 15 Gm Oint...g. 1 Iesha TP PRN TID PRN Naproxen 375 Mg Tablet 375 Mg PO BID Robaxin (Methocarbamol) 500 Mg Tablet 750 Mg PO BID Hydrocodone-Apap 10-325 (Hydrocodone Bit/Acetaminophen) 1 Each Tablet 1 Tab PO BID PRN I have reviewed the current psychotropics carefully including drug interactions. Risk benefit ratio favors no change other than as noted in my dictated progress note. Diagnosis: Problems: (1) Anxiety disorder (2) Dementia in Alzheimer's disease with delusions (3) Dementia in Alzheimer's disease with depression (4) Dementia, vascular, with delusions (5) Dementia, vascular, with depression (6) Impulse control disorder (7) Psychosis, atypical (8) Major depressive disorder, recurrent episode YOLI ONOFRE MD March 15, 2019 22:35
--- NOTE | 2019-03-15 22:52 | PN ---
DATE: 03/15/2019 PSYCHIATRIC PROGRESS NOTE This note covers elements not covered in my initial note 03/15/2019. SUBJECTIVE: I met with the patient in the evening. The patient slept 7 hours previous night. He has been irritable with nursing staff regarding his placement options. He prefers to go to [facility] and I addressed this with him. We will defer to social service staff to coordinate. REVIEW OF SYSTEMS: Ambulation impaired, in wheelchair. No CV, , pulmonary, eye, ENT system symptoms on review. MENTAL STATUS EXAM: Oriented to himself and situation. Speech is coherent, abstraction fair, computation impaired, language function intact, attention span short. Mood and affect somewhat labile, anxious. LABORATORY DATA: Reviewed. IMPRESSION: Unchanged from initial note. PLAN: No change from initial note. MAN Vikram ONOFRE MD DR: NEO/janae JOB#: [id number] / [id number]
[2019-03-16 06:29] VITALS: BP 145/61
[2019-03-16] MEDS: ACETAMINOPHEN 500 MG TABLET PO SCH ×2 (06:32→14:23)
[2019-03-16] MEDS: FOLIC ACID 1 MG TABLET PO SCH (08:10)
[2019-03-16] MEDS: SERTRALINE 50 MG TABLET. PO SCH (08:10)
[2019-03-16] MEDS: risperiDONE 0.5 MG TABLET. PO SCH (08:10)
[2019-03-16] MEDS: CHOLECALCIFEROL (VITAMIN D3) 1,000 UNIT TABLET PO SCH (08:10)
[2019-03-16] MEDS: RIVASTIGMINE 9.5MG PATCH. TD SCH (08:11)
[2019-03-16] MEDS: METHOCARBAMOL 500 MG TABLET PO SCH (08:11)
[2019-03-16] MEDS: NAPROXEN 375 MG TABLET PO SCH (08:12)
[2019-03-16] MEDS: HYDROcodone/APAP 10/325 1 TAB TABLET PO PRN (08:46)
[2019-03-16] MEDS ORDERED: RISP0.5T24 PO (14:15)
[2019-03-16 16:31] VITALS: BP 161/81
[2019-03-16] MEDS: TAMSULOSIN 0.4 MG CAP.ER.24H. PO SCH (17:30)
--- NOTE | 2019-03-16 22:14 | PDOC ---
Exam Note: Adam Note: Please also refer to the separate dictated note~for this date of service dictated separately.~Patient seen individually. Discussed the patient with Nursing staff reviewed the chart.~Reviewed interim history and current functioning. Reviewed vital signs,~Labs/ Radiology~and current medications noted below. Continue current treatment with the changes noted in the dictated addendum note Assessment: Vital Signs: Vital Signs Date Time Temp Pulse Resp B/P (MAP) Pulse Ox O2 Delivery O2 Flow Rate FiO2 03/16/19 16:31 99.0 77 20 161/81 (107) 94 03/15/19 16:31 Room Air I&O Intake and Output 03/16/19 06:59 Intake Total 3734 ml Balance 3734 ml Intake Oral 1320 ml IV Total 2414 ml # Voids 2 Current Medications: Meds: Current Medications Acetaminophen (Tylenol) 650 mg PRN Q6HRS PRN PO PAIN / TEMP; Start 02/16/19 at 17:00; Status Cancel Multi-Ingredient Ointment (Analgesic [place]) 1 iesha PRN QID PRN TP MUSCLE PAIN Last administered on 03/13/19at 20:16; Start 02/16/19 at 17:00; Stop 03/16/19 at 19:10; Status DC Al Hydroxide/Mg Hydroxide (Mylanta Plus Xs) 15 ml PRN AFTMEALHC PRN PO DYSPEPSIA; Start 02/16/19 at 17:00; Stop 03/16/19 at 19:10; Status DC Magnesium Hydroxide (Milk Of Magnesia) 2,400 mg PRN QHS PRN PO CONSTIPATION; Start 02/16/19 at 17:00; Stop 03/16/19 at 19:10; Status DC Cyanocobalamin (Vitamin B-12) 1,000 mcg DAILY PO Last administered on 02/19/19at 09:05; Start 02/17/19 at 09:00; Stop 02/19/19 at 18:50; Status DC Acetaminophen/ Hydrocodone Bitart (Lortab 10/325) 1 tab PRN BID PRN PO PAIN Last administered on 03/16/19at 08:46; Start 02/16/19 at 17:45; Stop 03/16/19 at 19:10; Status DC Acetaminophen/ Hydrocodone Bitart (Lortab 10/325) 1 tab DAILY PRN PO PAIN; Start 02/16/19 at 17:45; Status UNV Methocarbamol (Robaxin) 750 mg BID PO Last administered on 03/16/19at 08:11; Start 02/16/19 at 21:00; Stop 03/16/19 at 19:10; Status DC Nystatin (Mycostatin) 1 iesha TID TP Last administered on 03/04/19at 08:45; Start 02/16/19 at 21:00; Stop 03/04/19 at 09:02; Status DC Senna/Docusate Sodium (Senna Plus) 1 tab PRN BID PRN PO CONSTIPATION; Start 02/16/19 at 17:45; Stop 03/16/19 at 19:10; Status DC Tamsulosin HCl (Flomax) 0.4 mg DAILYWSUP PO Last administered on 03/16/19at 17:30; Start 02/17/19 at 17:00; Stop 03/16/19 at 19:10; Status DC Acetaminophen (Tylenol) 500 mg PRN Q8HRS PRN PO PAIN / TEMP Last administered on 02/25/19at 20:48; Start 02/16/19 at 18:00; Stop 02/26/19 at 00:30; Status DC Vitamin D (Vitamin D3) 5,000 unit DAILY PO Last administered on 03/16/19at 08:10; Start 02/17/19 at 09:00; Stop 03/16/19 at 19:10; Status DC Folic Acid (Folic Acid) 1 mg DAILY PO Last administered on 03/16/19 08:10; Start 02/17/19 at 09:00; Stop 03/16/19 at 19:10; Status DC Naproxen (Naprosyn) 375 mg BID PO Last administered on 03/16/19 08:12; Start 02/16/19 at 21:00; Stop 03/16/19 at 19:10; Status DC Risperidone (RisperDAL) 0.25 mg DAILY SL Last administered on 02/19/19 09:06; Start 02/18/19 at 09:00; Stop 02/19/19 at 21:45; Status DC Sertraline HCl (Zoloft) 25 mg DAILY PO Last administered on 02/20/19 08:11; Start 02/18/19 at 09:00; Stop 02/20/19 at 09:01; Status DC Sertraline HCl (Zoloft) 50 mg DAILY PO Last administered on 03/16/19at 08:10; Start 02/21/19 at 09:00; Stop 03/16/19 at 19:10; Status DC Rivastigmine (Exelon) 1 patch DAILY TD Last administered on 02/24/19at 10:18; Start 02/18/19 at 09:00; Stop 02/24/19 at 09:01; Status DC Rivastigmine (Exelon) 1 patch DAILY TD Last administered on 03/16/19at 08:11; Start 02/25/19 at 09:00; Stop 03/16/19 at 19:10; Status DC Risperidone (RisperDAL) 0.5 mg DAILY SL Last administered on 02/26/19at 08:16; Start 02/20/19 at 09:00; Stop 02/26/19 at 14:13; Status DC Acetaminophen (Tylenol) 500 mg Q8HRS PO Last administered on 03/16/19at 14:23; Start 02/26/19 at 09:00; Stop 03/16/19 at 19:10; Status DC Acetaminophen (Tylenol) 500 mg PRN Q8HRS PRN PO PAIN / TEMP; Start 02/26/19 at 00:30; Stop 02/26/19 at 12:25; Status DC Tbo-Filgrastim (Granix) 300 mcg QHS SQ Last administered on 02/27/19at 21:53; Start 02/27/19 at 21:00; Stop 02/28/19 at 16:39; Status DC Lorazepam (Ativan) 0.5 mg PRN Q6HRS PRN PO ANXIETY / AGITATION; Start 02/27/19 at 17:15; Stop 03/16/19 at 19:10; Status DC Nystatin (Mycostatin) 1 iesha PRN TID PRN TP itchy area on r. inner buttock; Start 03/04/19 at 09:15; Stop 03/16/19 at 19:10; Status DC Tbo-Filgrastim (Granix) 300 mcg QHS SQ Last administered on 03/06/19at 20:29; Start 03/06/19 at 21:00; Stop 03/07/19 at 21:01; Status DC Risperidone (RisperDAL) 0.5 mg DAILY PO Last administered on 03/16/19at 08:10; Start 03/11/19 at 09:00; Stop 03/16/19 at 19:10; Status DC Tbo-Filgrastim (Granix) 300 mcg QHS SQ ; Start 03/11/19 at 21:00; Stop 03/11/19 at 21:00; Status DC Tbo-Filgrastim (Granix) 300 mcg DAILY SQ Last administered on 03/11/19at 08:52; Start 03/11/19 at 09:00; Stop 03/11/19 at 12:00; Status DC Active Scripts Active Reported Risperdal (Risperidone) 0.5 Mg Tablet 0.5 Mg PO DAILY Zoloft (Sertraline Hcl) 50 Mg Tablet 50 Mg PO DAILY Senna Plus Tablet (Sennosides/Docusate Sodium) 1 Each Tablet 1 Each PO PRN BID PRN EXELON 9.5mg/24hr (Rivastigmine) 1 Each Patch.td24 1 Patch TD DAILY Analgesic [place] (Methyl Salicylate/Menthol) 28 Gm Oint...g. 1 Iesha TP PRN QID PRN Milk Of Magnesia (Magnesium Hydroxide) 2,400 Mg/10 Ml Oral.susp 2,400 Mg PO PRN QHS PRN Mag-Al Plus Xs Suspension (Mag Hydrox/Al Hydrox/Simeth) 30 Ml Oral.susp 15 Ml PO PRN AFTMEALHC PRN Ativan (Lorazepam) 1 Mg Tablet 0.5 Mg PO PRN Q6HRS PRN Flomax (Tamsulosin Hcl) 0.4 Mg Cap.er.24h 1 Cap PO DAILYWSUP Folic Acid 1 Mg Tablet 1 Mg PO DAILY Acetaminophen 500 Mg Tablet 500 Mg PO Q8HRS Vitamin D3 (Cholecalciferol (Vitamin D3)) 5,000 Unit Tablet 1 Tab PO DAILY Nystatin 15 Gm Oint...g. 1 Iesha TP PRN TID PRN Naproxen 375 Mg Tablet 375 Mg PO BID Robaxin (Methocarbamol) 500 Mg Tablet 750 Mg PO BID Hydrocodone-Apap 10-325 (Hydrocodone Bit/Acetaminophen) 1 Each Tablet 1 Tab PO BID PRN I have reviewed the current psychotropics carefully including drug interactions. Risk benefit ratio favors no change other than as noted in my dictated progress note. 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
--- NOTE | 2019-03-18 22:34 | DS ---
DATE OF DISCHARGE: 03/16/2019 DISCHARGE SUMMARY/PSYCHIATRIC PROGRESS NOTE This late entry 03/16/2019 covers elements not covered in my initial note of 03/16/2019. REASON FOR ADMISSION: Please refer to the admission history for details. Briefly, the patient is an 88-year-old male referred to us from [facility] after he was noted to be extremely paranoid, agitated, aggressive towards his son. He was throwing things at his son, paranoid, depressed. Self-care is extremely poor. He made suicidal ideation and was paranoid about his finances at the bank and insisting his son to take him to the bank almost every day. He had failed outpatient psychiatric interventions. SIGNIFICANT FINDINGS AND CLINICAL COURSE: Following admission, the patient was seen daily individually by myself from a psychiatric standpoint, medical followup with Dr. Anderson. The patient was extremely paranoid, suspicious, agitated at admission and minimized all his symptoms. He was extremely abrasive. Adjustments were made in his psychotropics and he responded positively to Risperdal 0.5 mg p.o. at bedtime. This was along with Zoloft 50 mg a day. He was also on Exelon patch 9.5 mg a day and Ativan p.r.n. 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 Shortly thereafter, he was extremely psychotic, once again difficult to redirect, unmanageable and Risperdal was restarted with Dr. Anderson's knowledge and he was treated on Neupogen with increase in his hemoglobin and white cell counts. It was deemed that he could not function back in an independent living and appropriate placement arrangements were made by social service staff in coordination with the son and the patient. REVIEW OF SYSTEMS: Prior to discharge on 03/16/2019, ambulation impaired, in wheelchair. No CV, , pulmonary, eye system symptoms on review. MENTAL STATUS EXAM: Oriented to himself and situation. Speech coherent, rapid at times. Abstraction fair, computation impaired, language function intact, attention span short. Mood and affect improved. He was less paranoid at discharge and no suicidal ideation noted at discharge. 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 Rest unchanged from admission. DISCHARGE MEDICATIONS: Please refer to the MRAD. DISCHARGE INSTRUCTIONS: Outpatient psychiatric and medical followup at the facility he was discharged to. Time for discharge day management greater than 30 minutes. MAN Vikram ONOFRE MD DR: NEO/janae JOB#: [id number] / [id number]
== END 2019-03-16 18:30 | DRG 57 ==
LOC: GEROPSY 15:40
PROVIDERS: ADMIT Psychiatry & Neurology Psychiatry; ATTEND Psychiatry & Neurology Psychiatry
DX: G30.9 Alzheimer's disease, unspecified (principal); F33.3 Major depressive disorder, recurrent, severe with psychotic symptoms; F02.81 Dementia in other diseases classified elsewhere, unspecified severity, with behavioral disturbance; R45.851 Suicidal ideations; D61.818 Other pancytopenia; F01.51 Vascular dementia, unspecified severity, with behavioral disturbance; N40.0 Benign prostatic hyperplasia without lower urinary tract symptoms; F41.9 Anxiety disorder, unspecified; D51.0 Vitamin B12 deficiency anemia due to intrinsic factor deficiency; D46.9 Myelodysplastic syndrome, unspecified; F63.9 Impulse disorder, unspecified; G89.4 Chronic pain syndrome; Z85.46 Personal history of malignant neoplasm of prostate
CPT/HCPCS: 36415; 70450; 80053; 80061; 82306; 82607; 83036; 83540; 83550; 83735; 84436; 84443; 84480; 85007; 85025; 85027; 86592; 93005; 97110; 97116; 97530; 97535; J1442